=== PATIENT | male | born 1960 | race Caucasian/White ===

== ENCOUNTER 2021-09-05 09:12 | Inpatient (IN) | payer SELFPAY ==
--- OUTSIDE RECORDS SUMMARY | 2021-09-05 09:16 | XMS REPORT | Continuity of Care Document ---
:1960 Author Organization [facility] t Address [address] [place] [address] Care Team Providers Name Role Phone Obey Serrano [facility] Primary Care Physic madeleine Doctor Unassigned, Name Attending Clinician Unavailable Thiago DARBY E Attending Clinician Vivi AVILA Attending Clinician Unavailable Tony Knapp Attending Clinician Unavailable Payers Payer Name Policy Type Policy Number Effective Date Expiration Date S [facility] [place] PENDING 2020 PENDING 00:00:00 Advance Directives Directive Decision Effective Date Termination Date Comments Sour ce Yes N/A [facility] Problems Condition Condition Condition Status Onset Resolution Last Treating Co mments Source Name Details Category Date Date Treatment Clinician Date NSTEMI NSTEMI Disease Active Univers (non-ST (non-ST 5-09 ity of elevated elevated 00:00: [place] myocardial myocardial 00 Me dical infarction infarction Br anch ) ) Obesity Obesity Disease Active Univers (BMI (BMI 5-09 ity of 30-39.9) 30-39.9) 00:00: [place] [address] Medical Branch Encounter Encounter [id number] Active 2019-072020-04-22 for for 0-14 21:38:09 observatio observatio 00:00: n for n for 00 other other suspected suspected diseases diseases and and conditions conditions ruled out ruled out (Z03.89)On set: 0 Allergies, Adverse Reactions, Alerts Allergy Allergy Status Severity Reaction(s) Onset Inactive Treating Comm ents Source Name Type Date Date Clinician CODEINE DRUG Active Rash 2020-0 Univers HCL INGREDI 3-26 ity of 00:00: [place] 00 Medical Branch PENICILL Drug Active Rash 2020-0 Univers INS Class 3-26 ity of 00:00: [place] 00 Medical Branch Codeine Propensi Active Rash 2020-0 Univers Hcl ty to 3-26 ity of adverse 00:00: [place] reaction 00 Medical s Branch Penicill Propensi Active Rash 2020-0 Univer s ins ty to 3- ity of adverse 00:00: [place] reaction 00 Medical s Branch penicill Allergy Active Rash in codeine Allergy Active Rash Social History Social Habit Start Date Stop Date Quantity Comments Source r/o PTSD 2020-04-27 00:00:00 History of tobacco Snuff User Univer sity of use [facility] History SDOH University o f [facility] SDOH University o f Alcohol Std Drinks [facility] History SDOH University o f Alcohol Binge [facility] al Branch Alcohol intake 2020-11-18 2020-11-18 Current drinker Unive rsity of 00:00:00 00:00:00 of alcohol [facility] (finding) Branch Cigarettes smoked 2020-11-15 2020-11-15 Univers ity of current (pack per 00:00:00 00:00:00 [facility] ) - Reported Branch Cigarette 2020-11-15 2020-11-15 University of pack-years 00:00:00 00:00:00 [facility] Tobacco use and 2020-11-15 2020-11-15 Current user Univers ity of exposure 00:00:00 00:00:00 [facility] Tobacco Comment 2020-11-15 2020-11-15 can few months Unive rsity of 00:00:00 00:00:00 [facility] Alcohol Comment 2020-11-15 2020-11-15 beer, 1-2/day Univer sity of 00:00:00 00:00:00 [facility] Sex Ass[birth year] At [birth year] Universit y of 00:00:00 00:00:00 [facility] Smoking Status Start Date Stop Date Source Tobacco smoking consumption [facility] Current every day smoker 2020-11-15 00:00:00 Uni versity of [place] [facility] Medications Ordered Filled Start Stop Current Ordering Indication Dosage Frequency Signature Comments Components Source Medication Medication Date Date Medication? Clinician (SIG) Name Name HYDROXYZINE Yes 50mg Take 50 mg Univers HCL ORAL 5-14 by mouth ity of 03:42: at [place] [address] bedtime. Medical Branch OLANZapine Yes 15mg Take 15 mg U nivers 15 mg 5-14 by mouth ity of tablet 03:42: at [place] [address] bedtime. Medical Branch prazosin 2 Yes 2mg Take 2 mg Un ximena mg capsule 5-14 by mouth ity o f 03:42: at [place] [address] bedtime. Medical Branch metoprolol Yes [id number] 12.5mg Take 0.5 Univers succinate 5-14 tablets by ity of XL 25 mg 24 00:00: mouth [place] hr tablet 00 daily. Medical Branch metoprolol Yes [id number] 12.5mg Take 0.5 Univers succinate 5-14 tablets by ity of XL 25 mg 24 00:00: mouth [place] hr tablet 00 daily. Medical Branch metoprolol Yes [id number] 12.5mg Take 0.5 Univers succinate 5-14 tablets by ity of XL 25 mg 24 00:00: mouth [place] hr tablet 00 daily. Medical Branch prazosin 2 Yes 2mg Take 2 mg Un ximena mg capsule 5-13 by mouth ity o f 22:42: at [place] [address] bedtime. Medical Branch HYDROXYZINE Yes 50mg Take 50 mg Univers HCL ORAL 5-13 by mouth ity of 22:42: at [place] [address] bedtime. Medical Branch OLANZapine Yes 15mg Take 15 mg U nivers 15 mg 5-13 by mouth ity of tablet 22:42: at [place] [address] bedtime. Medical Branch prazosin 2 Yes 2mg Take 2 mg Un ximena mg capsule 5-13 by mouth ity o f 22:42: at [place] [address] bedtime. Medical Branch HYDROXYZINE Yes 50mg Take 50 mg Univers HCL ORAL 5-13 by mouth ity of 22:42: at [place] [address] bedtime. Medical Branch OLANZapine Yes 15mg Take 15 mg U nivers 15 mg 5-13 by mouth ity of tablet 22:42: at [place] [address] bedtime. Medical Branch metoprolol Yes [id number] 12.5mg Take 0.5 Univers succinate 5-13 tablets by ity of XL 25 mg 24 00:00: mouth [place] hr tablet 00 daily. Medical Branch metoprolol Yes [id number] 12.5mg Take 0.5 Univers succinate 5-13 tablets by ity of XL 25 mg 24 00:00: mouth [place] hr tablet 00 daily. Medical Branch metoprolol Yes [id number] 12.5mg Take 0.5 Univers succinate 5-13 tablets by ity of XL 25 mg 24 00:00: mouth [place] hr tablet 00 daily. Medical Branch aspirin 81 Yes [id number] 81mg Take 1 Univers mg chewable 5-11 tablet by ity of tablet 00:00: mouth [place] 00 daily. Medical Branch aspirin 81 Yes [id number] 81mg Take 1 Univers mg chewable 5-11 tablet by ity of tablet 00:00: mouth [place] 00 daily. Medical Branch aspirin 81 Yes [id number] 81mg Take 1 Univers mg chewable 5-11 tablet by ity of tablet 00:00: mouth [place] 00 daily. Medical Branch triamcinolo Yes [id number] Apply to Univers ne 5-10 area(s) 2 ity of acetonide 00:00: (two) [place] 0.1 % cream 00 times Medical daily. Branch amLODIPine Yes [id number] 10mg Take 1 U nivers 10 mg 5-10 tablet by ity of tablet 00:00: mouth [place] 00 daily. Medical Branch FLUoxetine Yes [id number] 60mg Take 3 Univers (PROZAC) 20 5-10 capsules ity of mg capsule 00:00: by mouth [place] as 00 daily. Medical Branch gabapentin Yes [id number] 600mg Take 1 Univers 600 mg 5-10 tablet by ity of tablet 00:00: mouth 3 [place] 00 (three) Medical times Branch daily. losartan 50 Yes [id number] 50mg Take 1 Univers mg tablet 5-10 tablet by ity o f 00:00: mouth [place] 00 daily. Medical Branch atorvastati Yes [id number] 80mg Take 1 Univers n 80 mg 5-10 tablet by ity of tablet 00:00: mouth at [place] 00 bedtime. Medical Branch triamcinolo Yes [id number] Apply to Univers ne 5-10 area(s) 2 ity of acetonide 00:00: (two) [place] 0.1 % cream 00 times Medical daily. Branch amLODIPine Yes [id number] 10mg Take 1 U nivers 10 mg 5-10 tablet by ity of tablet 00:00: mouth [place] 00 daily. Medical Branch FLUoxetine Yes [id number] 60mg Take 3 Univers (PROZAC) 20 5-10 capsules ity of mg capsule 00:00: by mouth [place] 00 daily. Medical Branch gabapentin Yes [id number] 600mg Take 1 Univers 600 mg 5-10 tablet by ity of tablet 00:00: mouth 3 (three) Medical times Branch daily. losartan 50 Yes [id number] 50mg Take 1 Univers mg tablet 5-10 tablet by ity o f 00:00: mouth [place] 00 daily. Medical Branch atorvastati Yes [id number] 80mg Take 1 Univers n 80 mg 5-10 tablet by ity of tablet 00:00: mouth at [place] 00 bedtime. Medical Branch triamcinolo Yes [id number] Apply to Univers ne 5-10 area(s) 2 ity of acetonide 00:00: (two) [place] 0.1 % cream 00 times Medical daily. Branch amLODIPine Yes [id number] 10mg Take 1 U nivers 10 mg 5-10 tablet by ity of tablet 00:00: mouth [place] 00 daily. Medical Branch FLUoxetine Yes [id number] 60mg Take 3 Univers (PROZAC) 20 5-10 capsules ity of mg capsule 00:00: by mouth [place] 00 daily. Medical Branch gabapentin Yes [id number] 600mg Take 1 Univers 600 mg 5-10 tablet by ity of tablet 00:00: mouth 3 00 (three) Medical times Branch daily. losartan 50 Yes [id number] 50mg Take 1 Univers mg tablet 5-10 tablet by ity o f 00:00: mouth [place] 00 daily. Medical Branch atorvastati Yes [id number] 80mg Take 1 Univers n 80 mg 5-10 tablet by ity of tablet 00:00: mouth at [place] 00 bedtime. Medical Branch AmLODIPine* 2020- Yes [id number] 10mg AmLODIPine 0 *; 10 mg 07:59: PO/By 00 mouth for hypertensi on take one tablet in the morningSta rt: 0Ordered: 0Willy Knapp OLANZapine* 2019- Yes [id number] 2.5mg OLANZapine 0 *; 2.5 mg 07:58: PO/By 00 mouth for mood and clear thinking take one tablet at bed timeStart: 0Ordered: 0Willy Knapp Losartan* 2019- Yes [id number] 50mg Losartan*; 0 50 mg 07:58: PO/By 00 mouth for hypertensi on Take one tablet in the morningSta rt: 0Ordered: Willy Yoon OLANZapine* 2019- Yes [id number] 5mg OLANZapine 0 *; 5 mg 07:57: PO/By 00 mouth for mood and clear thinking take one tablet at bed timeStart: 0Ordered: 0Willy Knapp Gabapentin* 2019- Yes [id number] 300mg Gabapentin *; 300 mg 07:56: PO/By 00 mouth for anxiety and pain take one tablet in the morning and one tablet at bed timeStart: 0Ordered: Willy Yoon FLUoxetine* 2019- Yes [id number] 20mg FLUoxetine 0 *; 20 mg 07:56: PO/By 00 mouth for depressed mood Take one tablet in the morningSta rt: 0Ordered: Willy Yoon Albuterol 2019- Yes [id number] Albuterol Inhaler 0- 936320 Inhaler; 21:36: Take 2 00 puffs, NTE 12 puffs in 24 hours q4hr PRN for Asthma/SOB Start: 0Ordered: 0Angelia KristenInt ent Tuberculin 2019-07 Yes [id number] .1ml Tuberculin Unles s Pt P.P.D. 0-14 [id number] P.P.D.; has had a 19:37: 0.1 ml ID positive 00 Daily for test or a TB Testing test in Unless Pt the last has had a 12 positive months. test or a test in the last 12 months. RoutineSta rt: 0Ordered: 0Dinwiddie KristenInt entComment s: Unless Pt has had a positive test or a test in the last 12 months. Ibuprofen 2019-07 Yes [id number] 400mg Ibuprofen; NTE 2 400 0-14 [id number] 400 mg PO mg in 24 19:37: PRN q4hr hours 00 for Pain NTE 2400 mg in 24 hours RoutineSta rt: 0Ordered: 0Angelia KristenInt entComment s: NTE 2400 mg in 24 hours Maalox 2019-07 Yes [id number] 30ml Maalox; 30 NTE 120ml 0-14 [id number] ml PO PRN in 24 19:37: q6hr for hours 00 GI upset NTE 120ml in 24 hours RoutineSta rt: 0Ordered: 0Dinwiddie , KristenInt entComment s: NTE 120ml in 24 hours Milk of 2019-07 Yes [id number] 30ml Milk of NTE 120 Magnesia 0-14 [id number] Magnesia; mL in 24 19:37: 30 ml PO hours 00 PRN q4hr for Constipati on NTE 120 mL in 24 hours RoutineSta rt: 0Ordered: 0Dinwiddie , KristenInt entComment s: NTE 120 mL in 24 hours HydrOXYzine 2019-07 Yes [id number] 25mg HydrOXYzin NTE 100mg 0-14 [id number] e; 25 mg in 24 19:37: PO PRN hours 00 q6hr for Anxiety NTE 100mg in 24 hours RoutineSta rt: 0Ordered: 0Aaliyahe KristenInt entComment s: NTE 100mg in 24 hours OLANZapine 2019-07 Yes [id number] 2.5mg OLANZapine NTE 10 mg 0-14 [id number] ; 2.5 mg PRN 19:37: PO PRN Olanzapin 00 q6hr for e in 24 moderate hr period agitation NTE 10 mg PRN Olanzapine in 24 hr period RoutineSta rt: 0Ordered: 0Holliswiddie KitistenInt entComment s: NTE 10 mg PRN Olanzapine in 24 hr period OLANZapine 2019-07 Yes [id number] 5mg OLANZapine NTE 1 0 mg 0- 831936 ; 5 mg PO PRN 19:37: PRN q12hr Olanzapin 00 for severe e in 24 agitation hr period NTE 10 mg PRN Olanzapine in 24 hr period RoutineSta rt: 0Ordered: 0Aaliyahe JaronenInt entComment s: NTE 10 mg PRN Olanzapine in 24 hr period losartan 50 2019-07 No [id number] 1{tab(s losartan mg oral 0 755471 )} 50 mg oral tablet 16:04: tablet; 1 47 tab(s) orally once a dayQuantit y: 0 Refills: 0Ordered: Uzma GonsalezGeneric Substituti on Allowed amLODIPine 2019-07 No [id number] 1{tab(s amLODIPine 10 mg oral 0 808773 )} 10 mg oral tablet 16:04: tablet; 1 30 tab(s) orally once a dayQuantit y: 0 Refills: 0Ordered: Uzma GonsalezGeneric Substituti on Allowed Procedures Procedure Date / Time Performing Clinician Source Performed AUTHORIZATION FOR 2021-03-12 05:01:00 [facility] Name Medical Branch AUTHORIZATION FOR 2021-01-12 05:01:00 [facility] Name Medical Branch Plan of Care Planned Activity Planned Date Details Comments Source Diagnostic Test Pending 2020-04-28 10:50:00 Discharge Patient [code = DischargePatient] Diagnostic Test Pending 2020-04-27 15:18:00 Vital Signs - Routine [code = VitalSigns-Routine] Diagnostic Test Pending 2020-04-24 17:40:00 Management of Emotions [code = ManagementofEmotions] Diagnostic Test Pending 2020-04-24 17:40:00 Mgmt of Mental Illness (On Unit) [code = MgmtofMentalIllness(OnUni t)] Diagnostic Test Pending 2020-04-24 17:40:00 Spirituality [code = Spirituality] Diagnostic Test Pending 2020-04-24 17:40:00 Therapeutic Recreation [code = TherapeuticRecreation] Diagnostic Test Pending 2020-04-22 21:52:00 Other-Nursing [code = Other-Nursing] Diagnostic Test Pending 2020-04-22 19:37:00 Cardiac Diet/AHA (low fat/2g Na) [code = CardiacDiet/AHA(lowfat/2g Na)] Diagnostic Test Pending 2020-04-22 19:37:00 Assess and involve in group therapy [code = Assessandinvolveingroupth erapy] Encounters Start End Encounter Admission Attending Care Care Encounter Source Date/Time Date/Time Type Type Clinicians Facility Department ID 2021-03-12 2021-03-12 Orders Doctor BAKARI [id number] Univers 00:00:00 00:00:00 Only Unassigned, JONATHAN [id number] ity of [place] [facility] [id number] Jason as [id number] [facility] 009 Branch 2021-03-11 2021-03-11 Patient Gisselle Das [id number] Univers 00:00:00 00:00:00 Outreach E [place] [id number] i [id number] [id number] [facility] 403 Branch 2021-01-12 2021-01-12 Orders Doctor BAKARI [id number] Univers 00:00:00 00:00:00 Only Unassigned, JONATHAN [id number] ity of [place] [facility] [id number] Jason as [id number] [facility] 009 Branch 2020-11-18 2020-11-18 Emergency X [facility] ERT [id number] Univers 14:56:00 [facility]56[facility]14 2020-11-14 Emergency X [facility] ERT [id number] Univers 19:28:00 19:28:00 [facility] 2020-10-02 2020-10-02 Emergency X JAYDE AVILA [facility] ERT [id number] Univers 15:36:00 15:36:00 [facility] 2020-04-22 2020-04-28 Inpatient Aria, Marjorie [facility]-2E-73- [id number] [place] 18:45:00 12:07:00 [facility] Results Test Description Test Time Test Comments Results Result Comments Source Urine Drug Screen 7 2020-04-24 18:04:00 Test Item Value Reference Range Interpretation Comme nts Amphetamine Methamphetmine 510958 Negative Amphetamine test (test code = includes Amphet amine GswnrqdkysgMnzqwtobgdxwjp142010) and Methamphetamine. Barbiturate (896572) (test code = Negative Barbiturate(093349)) Benzodiazepines (297740) (test code = Negative Benzodiazepines(266510)) Cocaine Metabolite (749286) (test code Negative = CocaineMetabolite(000479)) Phencyclidine (541599) (test code = Negative Phencyclidine(505638)) Drug Screen Comment (test code = NOTE : .This analysis DrugScreenComment) is performed by immunoassay. Positivefindings are unconfirmed analytical test results; ifresults do not support expected clinical finding,confirmation by an alternate methodology is recommended.Patient metabolic variables, specific drug chemistry, andspecimen characteristics can affect test outcome.Technical consultation is available [email or web address], or call toll free [phone]. Opiates (012033) (test code = Negative Opiate test includes Opiates(532403)) Codeine and Morphine only. Cannabinoid (454221) (test code = Positive Cannabinoid(920938)) Comprehensive Metabolic [id number] 14:28:00 Test Item Value Reference Range Interpretation Comments Glucose,Serum (test code = 87 mg/dL Glucose,Serum) BUN (test code = BUN) 15 mg/dL Creatinine,Serum (test code = 0.97 mg/dL Creatinine,Serum) eGFR If NonAfrican Am (491462) 84 mL/min/1.73 (test code = eGFRIfNonAfricanAm(088687)) eGFR If Am (823755) 98 mL/min/1.73 (test code = eGFRIfAfricanAm(452506)) BUN/Creat Ratio (test code = 15 BUN/CreatRatio) Sodium (test code = Sodium) 139 mmol/L Potassium (test code = 4.6 mmol/L Potassium) Chloride (test code = 103 mmol/L Chloride) zzzCO2 (test code = zzzCO2) 26 mmol/L Calcium (test code = Calcium) 9.6 mg/dL Protein, Total (test code = 7.4 g/dL Protein,Total) Albumin (test code = Albumin) 4.6 g/dL Globulin, Total (test code = 2.8 g/dL Globulin,Total) A/G Ratio (test code = 1.6 A/GRatio) Bilirubin, Total (test code = 0.3 mg/dL Bilirubin,Total) Alkaline Phosphatase (test 103 {IU/L} code = AlkalinePhosphatase) AST (test code = AST) 18 {IU/L} ALT (test code = ALT) 15 {IU/L} [id number] 14:28:00 Test Item Value Reference Range Interpretation Comments TSH (399462) (test code = 1.950 {uIU/mL} TSH(738537)) Lipid Panel with LDL/HDL [id number] 14:28:00 Test Item Value Reference Range Interpretation Comments zzzCholesterol, Total 171 mg/dL (test code = zzzCholesterol,Total) Triglycerides (test code 186 mg/dL = Triglycerides) zzzHDL Cholesterol (test 33 mg/dL code = zzzHDLCholesterol) VLDL Cholesterol 33 mg/dL Calculated (test code = VLDLCholesterolCalculate d) LDL Cholesterol MARLA 105 mg/dL (NIH) (test code = LDLCholesterolCAL([facility])) LDL/HDL Ratio (408466) 3.2 {ratio} . (test code = LDL/HDLRatio(124939)) LDL/HDL Ratio Men Women 1/ 2 Avg.Risk 1.0 1.5 Avg.Risk 3.6 3.2 2X Avg.Risk 6.2 5.0 3X Avg.Risk 8.0 6.1 CBC w/ Diff w/ [id number] 11:45:00 Test Item Value Reference Range Interpretation Comments WBC Count (test code = 9.4 {x10E3/uL} WBCCount) zzzRBC Count (test code = 4.77 {x10E6/uL} zzzRBCCount) Hemoglobin (test code = 15.4 g/dL Hemoglobin) zzzHematocrit (test code = 44.0 % zzzHematocrit) MCV (test code = MCV) 92 fL MCH (test code = MCH) 32.3 pg MCHC (test code = MCHC) 35.0 g/dL RDW (test code = RDW) 12.1 % Platelets (test code = 367 {x10E3/uL} Platelets) Neutrophils (test code = 60 % Neutrophils) Lymphs (test code = Lymphs) 27 % Monocytes (test code = 8 % Monocytes) Eosinophils (test code = 4 % Eosinophils) Basophils (test code = 1 % Basophils) Neutrophils (Absolute) (test 5.6 {x10E3/uL} code = Neutrophils(Absolute)) Lymphs(Absolute) (test code = 2.5 {x10E3/uL} Lymphs(Absolute)) Monocytes(Absolute) (test 0.8 {x10E3/uL} code = Monocytes(Absolute)) Eosinophils(Absolute) (test 0.3 {x10E3/uL} code = Eosinophils(Absolute)) Basophils(Absolute) (test 0.1 {x10E3/uL} code = Basophils(Absolute)) Immature Granulocytes (test 0 % code = ImmatureGranulocytes) Immature Grans (Abs) (test 0.0 {x10E3/uL} code = ImmatureGrans(Abs))
[2021-09-05] MEDS ORDERED: MORPHINE 4 MG/ML SYR ONE ×2 (09:40→11:10)
[2021-09-05] MEDS ORDERED: ONDANSETRON 4 MG/2 ML VIAL ONE (09:40)
[2021-09-05] MEDS ORDERED: CEFEPIME 1 GM/VIAL ONE (09:41)
[2021-09-05] MEDS ORDERED: NA CHLORIDE 0.9% 100 ML IV ONE (09:41)
[2021-09-05] MEDS ORDERED: NA CHLORIDE 0.9% 250 ML ONE (09:45)
[2021-09-05] MEDS ORDERED: VANCOMYCIN 1 GM/VIAL ONE (09:45)
[2021-09-05 09:48] LABS: Absolute Lymphocytes (CBC) 1.6 K/uL (0.7-4.9); Hematocrit 41.2 % (39.6-49.0); Lymphocytes % 16.2 % (15.3-44.8); MPV 8.1 fL (7.6-11.3); RBC Red Blood Cell Count 4.61 M/uL (4.33-5.43)
[2021-09-05 09:50] LABS: Protime INR 1.08
[2021-09-05 10:07] LABS: Albumin 3.9 g/dL (3.4-5.0); Bilirubin Direct 0.1 mg/dL (0-0.2); Bilirubin Total 0.4 mg/dL (0.2-1.0); Magnesium 2.2 mg/dL (1.8-2.4); Potassium 4.1 mmol/L (3.5-5.1); Protein, Total 8.8 g/dL (6.4-8.2); Troponin High Sensitivity 7.7 pg/mL (<58.9)
--- NOTE | 2021-09-05 10:42 | RAD REPORT ---
EXAM DESCRIPTION: RAD - Chest Single View - 09/05/2021 10:05 am CLINICAL HISTORY: preop COMPARISON: No comparisons FINDINGS: Lines: None. Lungs: No evidence of edema or pneumonia. Pleural: No significant pleural effusions or pneumothorax. Cardiac: The heart size is within normal limits. Bones: No acute fractures. Other: Suspect ectasia of the thoracic aorta. IMPRESSION: No acute cardiopulmonary disease.
--- NOTE | 2021-09-05 12:04 | P.HP ---
Certification for Inpatient Patient admitted to: Inpatient Practitioner: I am a practitioner with admitting privileges, knowledge of patient current condition, hospital course, and medical plan of care. Services: Services provided to patient in accordance with Admission requirements found in Title 42 Section 412.3 of the Code of Federal Regulations Patient History Date of Service: 09/05/21 Reason for admission: Swollen painful left hand History of Present Illness: 61-year-old gentleman with a history of hypertension, coronary artery disease presented to the emergency department with a complaint of pain and swelling of the left hand of 2 days duration. Patient reported he started with a painful swelling in the left fifth finger which quickly spread to involve the whole hand, saw a streak of redness on the radial side of the distal one third of the forearm. Patient therefore presented to the ED for evaluation. He stated he does not recall any insect bite, does not own any pets so no animal bite. 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 He also had a saw cut on the left second digit about 1 week ago and the wound is healing. He has no leukocytosis or fever. Dr. Kaminski-hand surgeon was contacted recommended admission to hospitalist service for him to consult. Patient admitted for further management. Allergies Penicillins Allergy (Unverified 09/05/21 12:23) Rash - Past Medical/Surgical History -: Hypertension -: Coronary to disease -: Bowel resection -: Colostomy with reversal - Family History Father -: Heart disease Mother -: Heart disease - Social History Smoking Status: Never smoker Alcohol use: Yes Place of Residence: Home Review of Systems Other: Except as documented, all other systems reviewed and negative. Physical Examination - Physical Exam General: Alert, In no apparent distress, Oriented x3 HEENT: Normocephalic, Mucous membr. moist/pink, EOMI, Sclerae nonicteric Neck: Supple, JVD not distended Respiratory: Clear to auscultation bilaterally, Normal air movement Cardiovascular: No edema, Regular rate/rhythm, Normal S1 S2 Gastrointestinal: Normal bowel sounds, Soft and benign, Non-distended, No tenderness Musculoskeletal: Swelling (Left hand), Tenderness (Left hand) Integumentary: Erythema (Dorsum of left hand) Neurological: Normal speech, Normal strength at 5/5 x4 extr, Cranial nerves 3-12 intact Lymphatics: No axilla or inguinal lymphadenopathy - Studies Laboratory Data (last 24 hrs) 09/05/21 09:29: PT 12.4, INR 1.08 09/05/21 09:29: WBC 10.10, Hgb 14.0, Hct 41.2, Plt Count 384 09/05/21 09:29: Sodium 132 L, Potassium 4.1, BUN 16, Creatinine 1.37 H, Glucose 96, Magnesium 2.2, Total Bilirubin 0.4, AST 18, ALT 24, Alkaline Phosphatase 127 H Assessment and Plan - Problems (Diagnosis) (1) Cellulitis of hand Current Visit: Yes Status: Acute (2) Tenosynovitis of left hand Current Visit: Yes Status: Acute (3) Hypertension Current Visit: Yes Status: Acute (4) Coronary artery disease Current Visit: Yes Status: Acute - Plan Admit patient to the medical floor. Start IV Levaquin and vancomycin. Pain management with IV morphine and IV Toradol. Consult treatment surgery-Dr. Onofre. No aspirin. No anticoagulation in anticipation for surgery. Hydrate with IV normal saline. Follow blood cultures. - Advance Directives Does patient have a Living Will: No Does patient have a Durable POA for Healthcare: No
[2021-09-05] MEDS ORDERED: FENTANYL CITR 100 MCG/2 ML ONE ×2 (12:38→13:40)
[2021-09-05] MEDS ORDERED: KETOROLAC 30 MG/ML INJ IV PRN (13:07)
[2021-09-05] MEDS ORDERED: ACETAMINOPHEN 500 MG TAB PO PRN (13:07)
[2021-09-05] MEDS ORDERED: MORPHINE 4 MG/ML SYR IV PRN (13:07)
[2021-09-05] MEDS ORDERED: ONDANSETRON 4 MG/2 ML VIAL IV PRN (13:07)
--- NOTE | 2021-09-05 13:12 | ER ---
Nurse's Notes [facility] Name: Miguelangel Reaves Jr Age: 61 yrs Sex: Male : 1960 Arrival Date: 09/05/2021 Time: 09:15 Bed 7 Private MD: Diagnosis: Left flexor tenosynovitis Presentation: 09/05 09:22 Chief complaint: Patient states: L hand 5th digit started swelling on Monday. Has ll1 progressed up L hand and arm since. No known fever. Coronavirus screen: Vaccine status: Patient reports receiving the 2nd dose of the covid vaccine. Client denies travel out of the [place] in the last 14 days. At this time, the client does not indicate any symptoms associated with coronavirus-19. Ebola Screen: Patient denies travel to an Ebola-affected area in the 21 days before illness onset. Initial Sepsis Screen: Does the patient meet any 2 criteria? No. Patient's initial sepsis screen is negative. Does the patient have a suspected source of infection? Yes: Skin breakdown/wound. Risk Assessment: Do you want to hurt yourself or someone else? Patient reports no desire to harm self or others. Onset of symptoms was September 03, 2021. 09:22 Method Of Arrival: Ambulatory ll1 09:22 Acuity: NETTA 3 ll1 Triage Assessment: 09:24 General: Appears in no apparent distress. Behavior is calm, cooperative, appropriate ph for age, Denies fever. Pain: Complains of pain in left hand Pain radiates to left wrist and palmar aspect of left forearm. Neuro: Level of Consciousness is awake, alert, obeys commands, Oriented to person, place, time, situation. Cardiovascular: No deficits noted. Respiratory: Airway is patent Respiratory effort is even, unlabored, Respiratory pattern is regular, symmetrical. GI: No signs and/or symptoms were reported involving the gastrointestinal system. Derm: Skin is healthy with good turgor, Skin is pink, warm \\T\\ dry. Musculoskeletal: Swelling present in left hand. 09:24 General: Appears uncomfortable, Behavior is calm, cooperative, appropriate for age. ll1 Pain: Complains of pain in L hand Quality of pain is described as aching, Aggravated by increased activity. Derm: L hand pain, redness, and swelling. Reports pain. Historical: - Allergies: 09:21 PENICILLINS; ll1 - PMHx: 09:21 Hypertensive disorder; Myocardial infarction; Asthma; ll1 - PSHx: 09:21 heart cath; ll1 - Immunization history:: Client reports receiving the 2nd dose of the Covid vaccine. - Social history:: Smoking status: Patient reports the use of cigarette tobacco products, smokes one-half pack cigarettes per day, Reported history of juuling and/or vaping. Screenin:17 Abuse screen: Denies threats or abuse. Denies injuries from another. Nutritional ph screening: No deficits noted. Tuberculosis screening: No symptoms or risk factors identified. Fall Risk None identified. Assessment: 09:44 General: Appears uncomfortable, Behavior is cooperative, appropriate for age. Pain: ww Complains of pain in left hand. Neuro: Level of Consciousness is awake, alert, obeys commands, Oriented to person, place, time, situation, Moves all extremities. left hand painful to touch and move. Gait is steady. Cardiovascular: Capillary refill < 3 seconds Patient's skin is warm and dry. Rhythm is regular Chest pain is denied. Respiratory: Airway is patent Respiratory effort is even, unlabored, Respiratory pattern is regular, symmetrical. GI: Abdomen is non-distended, Abd is soft and non tender. EENT: No signs and/or symptoms were reported regarding the EENT system. Derm: Skin is intact, Skin is normal, skin abrasion to nasal bridge, patient states he has been picking at his nose for awhile. 09:47 Reassessment: Patient appears in no apparent distress at this time. Patient and/or ph family updated on plan of care and expected duration. Pain level reassessed. Patient is alert, oriented x 3, equal unlabored respirations, skin warm/dry/pink. Verbal order received from TESFAYE Reynoso for IV morphine 4 mg and IV zofran 4 mg, see MAR. 11:12 Reassessment: Patient appears in no apparent distress at this time. Patient and/or ph family updated on plan of care and expected duration. Pain level reassessed. Patient is alert, oriented x 3, equal unlabored respirations, skin warm/dry/pink. Pt reports that pain has increased, states, " The morphine helped it just wore off too quick." ERP notified and verbal order received for repeat dose of morphine, see MAR. 12:48 Reassessment: Patient appears in no apparent distress at this time. Patient and/or ph family updated on plan of care and expected duration. Pain level reassessed. Patient is alert, oriented x 3, equal unlabored respirations, skin warm/dry/pink. OR nurse at bedside, report given to WILNER Anderson, pt taken to OR for possible surgery. Vital Signs: 09:22 BP 153 / 107; Pulse 80; Resp 18; Temp 98.0(TE); Pulse Ox 100% on R/A; ph 09:22 Temp 98.1(TE); Weight 99.79 kg; Height 5 ft. 10 in. (177.80 cm); Pain 8/10; ll1 09:55 BP 132 / 102; Pulse 76; Resp 16; Pulse Ox 98% on R/A; ph 11:11 BP 137 / 100; Pulse 75; Resp 18; Pulse Ox 99% on R/A; ph 12:30 BP 145 / 102; Pulse 67; Resp 20; Pulse Ox 98% on R/A; ss7 09:22 Body Mass Index 31.57 (99.79 kg, 177.80 cm) ll1 ED Course: 09:15 Patient arrived in ED. mr 09:16 Edgardo Youngblood PA is PHCP. jmm 09:16 Stuart Villegas MD is Attending Physician. jmm 09:17 Sindhu Denton, WILNER is Primary Nurse. ph 09:18 Patient has correct armband on for positive identification. Bed in low position. Call ph light in reach. Side rails up X 1. Pulse ox on. NIBP on. 09:24 Triage completed. ll1 09:25 Arm band placed on Patient placed in an exam room, on a stretcher. ph 09:25 Initial lab(s) drawn, EKG done. Inserted saline lock: 20 gauge in right antecubital ww area, using aseptic technique. Blood collected. 09:37 Basic Metabolic Panel Sent. ww 09:37 CBC with Diff Sent. ww 09:43 Marcel Woo is Hospitalizing Provider. jmm 10:05 XRAY Chest (1 view) In Process Unspecified. EDMS 13:00 No provider procedures requiring assistance completed. Patient admitted, IV remains in ph place. Administered Medications: 09:44 Drug: Zofran (Ondansetron) 4 mg Route: IVP; Site: right forearm; ph 09:55 Follow up: Response: No adverse reaction ph 09:47 Drug: morphine 4 mg Route: IVP; Site: right antecubital; ph 09:55 Follow up: Response: No adverse reaction; Pain is decreased; RASS: Alert and Calm (0) ph 09:55 Drug: Cefepime 1 grams Route: IVPB; Rate: 200 ml/hr; Infused Over: 30 mins; Site: right ph antecubital; 10:30 Follow up: Response: No adverse reaction; IV Status: Completed infusion; IV Intake: ph 100ml 10:45 Drug: vancoMYCIN 1 grams Route: IVPB; Infused Over: 2 hrs; Site: right antecubital; ph 12:50 Follow up: Response: No adverse reaction; IV Status: Completed infusion; IV Intake: ph 250ml 11:11 Drug: morphine 4 mg Route: IVP; Site: right antecubital; ph 11:48 Follow up: Response: No adverse reaction; Pain is decreased; RASS: Alert and Calm (0) ph 12:40 Drug: fentaNYL (PF) 50 mcg Route: IVP; Site: right antecubital; ss7 13:00 Follow up: Response: No adverse reaction; Pain is decreased; RASS: Alert and Calm (0) ph Intake: 10:30 IV: 100ml; Total: 100ml. ph 12:50 IV: 250ml; Total: 350ml. ph Outcome: 09:43 Decision to Hospitalize by Provider. [facility] 13:00 Admitted to OR accompanied by nurse, via stretcher. ph 13:00 Condition: good 13:00 Instructed on the need for admit. 13:12 Patient left the ED. eb Signatures: Dispatcher [employer] EDMS Edgardo Youngblood PA PA zaria Gisselle BeahcSindhu RN Sarah Jimenez ph, Lynsay, RN RN ll1 More Uribe RN Thi Gomez RN RN ss7
--- NOTE | 2021-09-05 13:12 | EDPHYS ---
Physician Documentation [facility] Name: Miguelangel Reaves Jr Age: 61 yrs Sex: Male : 1960 Arrival Date: 09/05/2021 Time: 09:15 Bed 7 Private MD: YENNI Physician Stuart Villegas HPI: 09/05 09:39 This 61 yrs old Male presents to ER via Ambulatory with complaints of Hand Swelling. jmm 09:39 The patient or guardian reports pain, swelling. The complaints affect the left hand jmm diffusely. Onset: The symptoms/episode began/occurred gradually, 2 day(s) ago. Modifying factors: The symptoms are alleviated by nothing, the symptoms are aggravated by movement. This is a 61-year-old male with history of hypertension, coronary artery disease, asthma the presents emerged part with complaints of left hand swelling beginning this past Monday. Patient is unsure of an actual injury or envenomation. Symptoms worsened this morning to the point that he cannot move his left hand without large amount of pain. Denies fever or chills. Does state he injured his left index finger a few weeks back. Denies fever or chills.. Historical: - Allergies: 09:21 PENICILLINS; ll1 - PMHx: 09:21 Hypertensive disorder; Myocardial infarction; Asthma; ll1 - PSHx: 09:21 heart cath; ll1 - Immunization history:: Client reports receiving the 2nd dose of the Covid vaccine. - Social history:: Smoking status: Patient reports the use of cigarette tobacco products, smokes one-half pack cigarettes per day, Reported history of juuling and/or vaping. ROS: 09:39 Constitutional: Negative for fever, chills, and weight loss, Cardiovascular: Negative jmm for chest pain, palpitations, and edema, Respiratory: Negative for shortness of breath, cough, wheezing, and pleuritic chest pain, Abdomen/GI: Negative for abdominal pain, nausea, vomiting, diarrhea, and constipation. 09:39 MS/extremity: Positive for pain. 09:39 All other systems are negative. Exam: 09:39 Constitutional: This is a well developed, well nourished patient who is awake, alert, jmm and in no acute distress. Head/Face: atraumatic. Eyes: EOMI, no conjunctival erythema appreciated ENT: Moist Mucus Membranes Neck: Trachea midline, Supple Chest/axilla: Normal chest wall appearance and motion. Cardiovascular: Regular rate and rhythm. No edema appreciated Respiratory: Normal respirations, no respiratory distress appreciated Abdomen/GI: Non distended, soft Back: Normal ROM Skin: General appearance color normal 09:39 Musculoskeletal/extremity: Edema noted to the left hand diffusely, pain is exquisite on passive extension of all fingers, pain radiates into the volar surface of the wrist. Full radial pulse, less than 2-second distal cap refill, compartments are soft, neurovascular intact. 09:39 Skin: Appearance: Color: Erythema noted to the nose, left index finger. 09:39 Neuro: Orientation: is normal, Mentation: is normal, Memory: is normal. 09:39 Psych: Behavior/mood is pleasant, cooperative. Vital Signs: 09:22 BP 153 / 107; Pulse 80; Resp 18; Temp 98.0(TE); Pulse Ox 100% on R/A; ph 09:22 Temp 98.1(TE); Weight 99.79 kg; Height 5 ft. 10 in. (177.80 cm); Pain 8/10; ll1 09:55 BP 132 / 102; Pulse 76; Resp 16; Pulse Ox 98% on R/A; ph 11:11 BP 137 / 100; Pulse 75; Resp 18; Pulse Ox 99% on R/A; ph 12:30 BP 145 / 102; Pulse 67; Resp 20; Pulse Ox 98% on R/A; ss7 09:22 Body Mass Index 31.57 (99.79 kg, 177.80 cm) ll1 MDM: 09:21 [facility] 09:42 Data reviewed: vital signs, nurses notes. Counseling: I had a detailed discussion with [facility] the patient and/or guardian regarding: the historical points, exam findings, and any diagnostic results supporting the discharge/admit diagnosis, the need for further work-up and treatment in the hospital. ED course: I discussed the patient with Dr. Onofre whom recommended surgery. I discussed the patient with Dr. Salma goncalves whom accepted the patient for admission. 09/05 09:33 Order name: Basic Metabolic Panel [facility] 09/05 09:33 Order name: CBC with Diff [facility] 09/05 09:33 Order name: LFT's; Complete Time: 10:13 [facility] 09/05 09:33 Order name: Magnesium; Complete Time: 10:13 [facility] 09/05 09:33 Order name: NT PRO-BNP; Complete Time: 10:13 [facility] 09/05 09:33 Order name: PT-INR; Complete Time: 09:55 [facility] 09/05 09:33 Order name: Troponin HS; Complete Time: 10:13 [facility] 09/05 09:33 Order name: XRAY Chest (1 view); Complete Time: 10:58 [facility] 09/05 09:33 Order name: Basic Metabolic Panel; Complete Time: 10:13 [facility] 09/05 09:33 Order name: CBC with Automated Diff; Complete Time: 09:55 [facility] 09/05 09:37 Order name: Blood Culture Adult (2) ww 09/05 09:44 Order name: SARS-COV-2 RT PCR (Document "Date of Onset" if Symptomatic); Complete Time: [facility] 11:59 09/05 09:32 Order name: Saline Lock; Complete Time: 09:33 [facility] 09/05 09:33 Order name: EKG; Complete Time: 09:33 [facility] 09/05 09:33 Order name: Cardiac monitoring; Complete Time: 09:33 [facility] 09/05 09:33 Order name: EKG - Nurse/Tech; Complete Time: 09:40 [facility] 09/05 09:33 Order name: IV Saline Lock; Complete Time: 09:33 [facility] 09/05 09:33 Order name: Labs collected and sent; Complete Time: 09:33 [facility] 09/05 09:33 Order name: O2 Per Protocol; Complete Time: 09:34 [facility] 09/05 09:33 Order name: O2 Sat Monitoring; Complete Time: 09:34 [facility] Administered Medications: 09:44 Drug: Zofran (Ondansetron) 4 mg Route: IVP; Site: right forearm; ph 09:55 Follow up: Response: No adverse reaction ph 09:47 Drug: morphine 4 mg Route: IVP; Site: right antecubital; ph 09:55 Follow up: Response: No adverse reaction; Pain is decreased; RASS: Alert and Calm (0) ph 09:55 Drug: Cefepime 1 grams Route: IVPB; Rate: 200 ml/hr; Infused Over: 30 mins; Site: right ph antecubital; 10:30 Follow up: Response: No adverse reaction; IV Status: Completed infusion; IV Intake: ph 100ml 10:45 Drug: vancoMYCIN 1 grams Route: IVPB; Infused Over: 2 hrs; Site: right antecubital; ph 12:50 Follow up: Response: No adverse reaction; IV Status: Completed infusion; IV Intake: ph 250ml 11:11 Drug: morphine 4 mg Route: IVP; Site: right antecubital; ph 11:48 Follow up: Response: No adverse reaction; Pain is decreased; RASS: Alert and Calm (0) ph 12:40 Drug: fentaNYL (PF) 50 mcg Route: IVP; Site: right antecubital; ss7 13:00 Follow up: Response: No adverse reaction; Pain is decreased; RASS: Alert and Calm (0) ph Disposition: 09/06 09:08 Co-signature as Attending Physician, Stuart Villegas MD I agree with the assessment and jr11 plan of care. Disposition Summary: 09/05/21 09:43 Hospitalization Ordered Hospitalization Status: Observation [facility] Provider: Marcel Woo Location: Telemetry/[facility] (observation) [facility] Condition: Stable jmm Problem: new jmm Symptoms: are unchanged [facility] Bed/Room Type: Standard [facility] Room Assignment: [facility] Diagnosis - Left flexor tenosynovitis [facility] Forms: - Medication Reconciliation Form [facility] - SBAR form [facility] Signatures: Dispatcher [employer] EDEdgardo Chris PA PA m Sindhu Denton RN RN Abdoul Loja RN RN ll1 Stuart Villegas MD MD [id number] Thi Aguilar RN RN ss7
[2021-09-05] MEDS ORDERED: Ringers Lactate 1,000 ML IV ONE (13:18)
[2021-09-05] MEDS: Levofloxacin 750mg IV 750 MG/150 ML BAG IV SCH (13:26)
[2021-09-05] MEDS ORDERED: SUCCINYLCHOLINE 20 MG/ML (10 ML) IV ONE (13:39)
[2021-09-05] MEDS ORDERED: propofoL 200 MG/20 ML VIAL IV ONE (13:40)
[2021-09-05] MEDS ORDERED: MIDAZOLAM HCL 2 MG/2 ML INJ ONE (13:40)
[2021-09-05] MEDS ORDERED: VANCOMYCIN 1.5 GM in NA CHLORIDE 0.9% 500 ML IVPB ONE (14:00)
[2021-09-05] MEDS ORDERED: MEPERIDINE HCL 50 MG/ML IV PRN (15:01)
[2021-09-05] MEDS: HYDROMORPHONE HCL 1 MG/ML INJ ONE ×2 (15:02→15:07)
[2021-09-05] MEDS ORDERED: KETOROLAC 30 MG/ML INJ ONE (15:05)
[2021-09-05] MEDS: FENTANYL CITR 100 MCG/2 ML ONE ×2 (15:09→15:21)
[2021-09-05] MEDS ORDERED: ALBUTEROL 2.5 MG/3 ML NEB SOL NEB ONE ×2 (15:30)
[2021-09-05] MEDS: NA CHLORIDE 0.9% 1,000 ML IV SCH (16:17)
[2021-09-05 20:13] LABS: Urine Appearance CLEAR (Clear); Urine Bilirubin NEGATIVE (Negative); Urine Blood NEGATIVE (Negative); Urine Color YELLOW (Yellow); Urine Glucose TRACE (Negative); Urine Microscopic Reflex ORDER UMIC; Urine Protein TRACE (Negative); Urine Specific Gravity 1.025 (1.005-1.030); Urine Urobilinogen 0.2 mg/dL (0.2-1.0)
[2021-09-05 20:28] LABS: Urine Bacteria <20 /HPF (NONE SEEN); Urine Mucus 2+ /HPF (NONE SEEN); Urine RBC NONE SEEN /HPF (NONE SEEN); Urine Urothelial Cells <5 /HPF (NONE SEEN)
[2021-09-05 20:41] VITALS: BMI 32.3
[2021-09-05] MEDS: MEPERIDINE HCL 50 MG/ML IM PRN (20:54)
[2021-09-06] MEDS: CODEINE 30MG/APAP 300MG TAB PO PRN (00:53)
--- NOTE | 2021-09-06 00:58 | OP ---
Surgeon: Jose Maria Onofre MD Preoperative Diagnosis: Tenosynovitis of the left hand. Postoperative Diagnosis: Tenosynovitis of the left hand. Procedure Performed: Carpal release, antebrachial fascia release, A1 bayron release of the ring finger, and synovial biopsy. Anesthesia: General. Description Of Procedure: After satisfactory induction of general anesthesia, left arm was prepped with Betadine scrub and Betadine paint. Dry sterile drapes were applied in the usual manner. The arm was elevated. Tourniquet was inflated to 250 mmHg. Hand was placed on a roll lock table. A carpal tunnel- like incision was made in the palm. Dissection down through the transcarpal ligament revealed thick cloudy fluid appears to be some bubbling of air. Cultures were taken. Proximal extension was made with antebrachial fascia and the muscle bulging. There was thickened synovium in the forearm as well as the hand. It was then dissected distally and the incision was extended distally into the little finger metacarpal head with a zigzag Jie incision. At that time, the A1 bayron was released. There was no cloudy fluid at this point with some mild tenosynovitis. The superficial arch has maintained continuity as well as nerve branches and lateral branches. The wound was then jet lavage irrigated with 3 L of dilute Betadine solution. Tourniquet was released. Electrocautery was used for hemostasis. Wound was packed loosely with half-inch Nu Gauze soaked in Betadine, followed by 3 Kerlix. The patient tolerated the procedure well and returned to Recovery. ROSA/HARRY Voice ID: [id number] Report ID: [id number] MONIQUE
--- NOTE | 2021-09-06 01:29 | HP ---
Date of Admission: 09/05/2021 History Of Present Illness: A 61-year-old white male right-hand dominant, who on Monday 2 days ago n oticed pain and swelling of his left little finger, presented to the emergency room with swelling of his left little finger, hand, and forearm, getting progressively worse. In the ER, he has pain with passive extension, that is why he is referred. Past Medical History: High blood pressure and previously infected ankle and spinal fusion and colono scopy. Social History: Smokes half-a-pack a day. Does not drink. Allergies: PENICILLIN. Medications: Gabapentin. See the list. Review of Systems: Review of systems is otherwise unremarkable. Physical Examination: The only finding is the left hand is warm. This is swollen compared to the opposite side. There is pain with compression of the forearm volarly. Pain with extension of the little more than the ring, more than the middle finger. Assessment: Skin cellulitis. Plan: Debridement. ROSA/HARRY Voice ID: [id number]
[2021-09-06 04:28] LABS: Absolute Lymphocytes (CBC) 2.2 K/uL (0.7-4.9); Hematocrit 36.2 % (39.6-49.0); Lymphocytes % 27.8 % (15.3-44.8); MPV 7.9 fL (7.6-11.3); RBC Red Blood Cell Count 4.02 M/uL (4.33-5.43)
[2021-09-06 04:51] LABS: Phosphorus 3.2 mg/dL (2.5-4.9); Potassium 3.8 mmol/L (3.5-5.1)
[2021-09-06] MEDS: MEPERIDINE HCL 50 MG/ML IM PRN ×4 (08:31→22:22)
--- NOTE | 2021-09-06 08:50 | EKG ---
Test Date: 2021-09-05 Test Time: 09:38:51 Fluid Jet Cutter Operator: KV MEASUREMENT RESULTS: Intervals: Rate: 79 NE: 154 QRSD: 78 QT: 380 QTc: 435 [place]: P: 30 NE: 154 QRS: -18 T: 60 INTERPRETIVE STATEMENTS: Normal sinus rhythm Minimal voltage criteria for LVH, may be normal variant Borderline ECG No previous ECG available for comparison Electronically Signed On 09-06-21 08:47:45 [employer] by Matthew Gleason
[2021-09-06] MEDS ORDERED: POTASSIUM CL SA 10 MEQ TAB PO ONE (09:00)
[2021-09-06] MEDS: VANCOMYCIN 1.75 GM in NA CHLORIDE 0.9% 500 ML IVPB SCH (09:03)
[2021-09-06] MEDS: NA CHLORIDE 0.9% 1,000 ML IV SCH (09:03)
--- NOTE | 2021-09-06 12:47 | PN ---
The patient's hand feels much better today. He denies any problems with dog or cat bites. No tropic al animals. No closed water infections. He does have an infection of his nose, but he was draining himself. The wound looks inflamed this time. The hand markedly improved. Sensation intact. He is able to move the fingers. Plan: We will begin dressing changes and plan surgery for later this week. We are waiting for cultu re report. ROSA/HARRY Voice ID: [id number] Report ID: [id number]
[2021-09-06] MEDS ORDERED: VANCOMYCIN 1.75 GM in NA CHLORIDE 0.9% 500 ML IVPB SCH (14:00)
[2021-09-06] MEDS: Levofloxacin 750mg IV 750 MG/150 ML BAG IV SCH (14:06)
--- NOTE | 2021-09-06 17:04 | P.PN ---
Subjective Date of Service: 09/06/21 Chief Complaint: Swollen painful left hand Patient taken to the OR yesterday by Dr. Onofre who performed an incision in the palmar aspect of hand. He state his pain is much better. No fever. Physical Examination - Vital Signs Temperature: 97.5 F Blood Pressure: 121/86 Pulse: 72 Respirations: 21 Pulse Ox (%): 96 Assessment And Plan - Current Problems (Diagnosis) (1) Cellulitis of hand Current Visit: Yes Status: Acute (2) Tenosynovitis of left hand Current Visit: Yes Status: Acute (3) Hypertension Current Visit: Yes Status: Acute (4) Coronary artery disease Current Visit: Yes Status: Acute - Plan Continue IV Levaquin and vancomycin. Pain management with IV morphine and IV Toradol. Dr. Onofre is following and planning secondary wound closure within 2 days. No anticoagulation in anticipation for surgery. Diet as tolerated. Follow blood cultures and deep tissue wound culture.
[2021-09-07] MEDS: VANCOMYCIN 1.75 GM in NA CHLORIDE 0.9% 500 ML IVPB SCH (01:06)
[2021-09-07 05:31] LABS: Absolute Lymphocytes (CBC) 2.3 K/uL (0.7-4.9); Hematocrit 36.3 % (39.6-49.0); Lymphocytes % 25.5 % (15.3-44.8); RBC Red Blood Cell Count 4.11 M/uL (4.33-5.43)
[2021-09-07 05:47] LABS: Potassium 3.7 mmol/L (3.5-5.1)
--- NOTE | 2021-09-07 06:16 | P.PN ---
Date of Service: 09/07/21 Subjective: No acute events overnight Patient with left hand wrapped, serosanguineous drainage noted on dressing Pain slowly improving, able to wiggle fingers with more range of motion ROS: 10 point ROS as noted above, otherwise negative Physical exam GEN: Alert, oriented, NAD HEENT: Normal conjunctiva, sclera anicteric CV: Regular rate and rhythm, no edema Pulm: Nonlabored respirations on room air Integumentary: L hand with dressing in place, serosanguineous drainage noted on dressing, wiggles fingers Neuro: Normal speech, normal affect Problem List Tenosynovitis and cellulitis of the left hand Hypertension CAD Continue empiric antibiotics, Levaquin and vancomycin Wound culture pending, no specific growth at this time Dr. Onofre consulted, s/p I&D, plan for wound closure tomorrow Diet as tolerated, n.p.o. after midnight Blood cultures remain negative as well Patient with penicillin allergy Code: full Dispo: home, anticipate in 1-2 days, on PO antibiotic Time Spent Managing Pts Care (In Minutes): 35
[2021-09-07] MEDS: MEPERIDINE HCL 50 MG/ML IM PRN ×3 (08:46→20:16)
[2021-09-07] MEDS ORDERED: POTASSIUM 25 MEQ EFFERV TAB PO ONE (09:00)
[2021-09-07] MEDS: NICOTINE 14 MG/PAT TD SCH (11:40)
[2021-09-07] MEDS: CODEINE 30MG/APAP 300MG TAB PO PRN (12:09)
[2021-09-07] MEDS: Levofloxacin 750mg IV 750 MG/150 ML BAG IV SCH (15:00)
[2021-09-07] MEDS: VANCOMYCIN 1.5 GM in NA CHLORIDE 0.9% 500 ML IVPB SCH (21:11)
[2021-09-08] MEDS: MEPERIDINE HCL 50 MG/ML IM PRN ×4 (03:55→21:46)
[2021-09-08 05:53] LABS: Potassium 3.6 mmol/L (3.5-5.1)
--- NOTE | 2021-09-08 06:24 | P.PN ---
Date of Service: 09/08/21 Subjective: Continues with moderate pain, uncontrolled with p.o. medication only Plan for or today for potential closure ROS: 10 point ROS as noted above, otherwise negative Physical exam GEN: Alert, oriented, NAD HEENT: Normal conjunctiva, sclera anicteric CV: Regular rate and rhythm, no edema Pulm: Nonlabored respirations on room air Integumentary: L hand with dressing in place, wiggles fingers more easily Neuro: Normal speech, normal affect Problem List Tenosynovitis and cellulitis of the left hand Hypertension CAD Continue empiric antibiotics, Levaquin and vancomycin Wound culture, no growth at this time Dr. Onofre consulted, s/p I&D, plan for wound closure today NPO this AM Blood cultures remain negative as well Patient with penicillin allergy pain medication as needed, currently still requiring IV Code: full Dispo: home, anticipate tomorrow, on PO antibiotic Time Spent Managing Pts Care (In Minutes): 35
[2021-09-08] MEDS: NICOTINE 14 MG/PAT TD SCH (08:42)
[2021-09-08] MEDS ORDERED: POTASSIUM CL SA 10 MEQ TAB PO ONE (09:00)
[2021-09-08] MEDS ORDERED: MIDAZOLAM HCL 2 MG/2 ML INJ ONE ×2 (12:02→14:25)
[2021-09-08] MEDS ORDERED: propofoL 200 MG/20 ML VIAL IV ONE (12:02)
[2021-09-08] MEDS ORDERED: ONDANSETRON 4 MG/2 ML VIAL ONE (12:02)
[2021-09-08] MEDS ORDERED: FENTANYL CITR 100 MCG/2 ML ONE ×2 (12:02→14:25)
[2021-09-08] MEDS ORDERED: LIDOCAINE 2% MPF 5 ML VIAL ONE (12:03)
[2021-09-08] MEDS ORDERED: Ringers Lactate 1,000 ML IV ONE (12:27)
[2021-09-08] MEDS: Levofloxacin 750mg IV 750 MG/150 ML BAG IV SCH (13:57)
[2021-09-08] MEDS ORDERED: LIDOCAINE 1% MPF 5 ML VIAL ONE (14:24)
[2021-09-08] MEDS ORDERED: dexAMETHasone 10 MG/ML VIAL ONE (14:25)
[2021-09-08] MEDS ORDERED: ROPLVACAINE HCL 40 ML ONE (14:26)
[2021-09-08] MEDS: HYDROMORPHONE HCL 1 MG/ML INJ ONE ×2 (15:03→15:09)
[2021-09-08] MEDS: VANCOMYCIN 1.5 GM in NA CHLORIDE 0.9% 500 ML IVPB SCH (16:00)
--- NOTE | 2021-09-09 01:09 | OP ---
Surgeon: Jose Maria Onofre MD Preoperative Diagnosis: Open wound, left hand. Postoperative Diagnosis: Open wound, left hand. Procedure Performed: Debridement of skin and subcu tissue, simple closure of 13 cm. Anesthesia: General. Procedure In Detail: After satisfactory induction of general anesthesia, left arm was prepped with Betadine scrub and Betadine paint. Dry sterile drapes were applied in the usual manner. Arm was elevated. Tourniquet was inflated to 250 mmHg. Hand was placed in roll lock table. Curette forceps and scissors were used to debride skin and subcutaneous tissue as needed. Cultures were taken at deep wrist. Then wound was coned, jet lavage irrigated with 3 L of Betadine solution. Tourniquet was released. Electrocautery was used for hemostasis. Wound was partially closed with 4-0 Prolene simple sutures. The proximal part of the wound was left open for drainage. Dressed with Xeroform, 2 Kerlix. The patient tolerated procedure well and returned to Recovery. ROSA/HARRY Voice ID: [id number] Report ID: [id number] MONIQUE
[2021-09-09 06:06] LABS: Absolute Lymphocytes (CBC) 1.1 K/uL (0.7-4.9); Hematocrit 37.4 % (39.6-49.0); Lymphocytes % 8.9 % (15.3-44.8); MPV 8.1 fL (7.6-11.3); RBC Red Blood Cell Count 4.22 M/uL (4.33-5.43)
[2021-09-09 06:20] LABS: Potassium 4.4 mmol/L (3.5-5.1)
[2021-09-09] MEDS: MEPERIDINE HCL 50 MG/ML IM PRN ×2 (07:24→12:40)
[2021-09-09 07:46] LABS: Blood Morphology Comment NOTED (NOT SEEN); Platelet Estimate ADEQ; White Blood Cell Scan OK (OK)
[2021-09-09 07:47] LABS: Poikilocytosis SLIGHT
[2021-09-09] MEDS ORDERED: HYDROCODONE/APAP 7.5/325 MG TAB PO PRN (07:55)
[2021-09-09 08:25] VITALS: O2SAT 95
[2021-09-09] MEDS: VANCOMYCIN 1.5 GM in NA CHLORIDE 0.9% 500 ML IVPB SCH (08:45)
[2021-09-09] MEDS: NICOTINE 14 MG/PAT TD SCH (09:45)
[2021-09-09 17:00] VITALS: BP 146/88; TEMP 97.3
--- NOTE | 2021-09-09 18:20 | P.DS ---
Admission Date: 09/05/21 Discharge Date: 09/09/21 Disposition: ROUTINE DISCHARGE Discharge Condition: GOOD Reason for Admission: Swollen painful left hand Consultations: Dr. Onofre - Plastic Surgery Procedures: Problem List Tenosynovitis and cellulitis of the left hand Hypertension CAD Brief History of Present Illness: 61-year-old gentleman with a history of hypertension, coronary artery disease presented to the emergency department with a complaint of pain and swelling of the left hand of 2 days duration. Patient reported he started with a painful swelling in the left fifth finger which quickly spread to involve the whole hand, saw a streak of redness on the radial side of the distal one third of the forearm. Patient therefore presented to the ED for evaluation. He stated he does not recall any insect bite, does not own any pets so no animal bite. 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 He also had a saw cut on the left second digit about 1 week ago and the wound is healing. He has no leukocytosis or fever. Dr. Kaminski-hand surgeon was contacted recommended admission to hospitalist service for him to consult. Patient admitted for further management. Hospital Course: Patient was found to have Tenosynovitis of L hand/wrist. He was taken to the OR by Dr. Onofre and underwent incision/drainage. Noted to have some purulent drainage. Cultures remained negative. He was empirically covered with IV antibiotics. He had gradual improvement and was subsequently taken back to OR on 09/08 for partial wound closure. Discharged home with pain medication and antibiotics. twice daily wound dressing changes as recommended follow up with Dr. Onofre in 1 week Vital Signs/Physical Exam: Temp Pulse Resp BP Pulse Ox 97.3 F 78 16 146/88 H 97 09/09/21 16:00 09/09/21 16:00 09/09/21 16:00 09/09/21 16:00 09/09/21 16:00 Physical exam GEN: Alert, oriented, NAD HEENT: Normal conjunctiva, sclera anicteric CV: Regular rate and rhythm, no edema Pulm: Nonlabored respirations on room air Integumentary: L hand with dressing in place, wiggles fingers more easily; wound open over wrist, closed on hand Neuro: Normal speech, normal affect Laboratory Data at Discharge: WBC 11.90 K/uL (4.3-10.9) H D 09/09/21 05:31 Hgb 12.6 g/dL (13.6-17.9) L 09/09/21 05:31 Hct 37.4 % (39.6-49.0) L 09/09/21 05:31 Plt Count 361 K/uL (152-406) 09/09/21 05:31 PT 12.4 SECONDS (9.5-12.5) 09/05/21 09:29 INR 1.08 09/05/21 09:29 Sodium 134 mmol/L (136-145) L 09/09/21 05:31 Potassium 4.4 mmol/L (3.5-5.1) 09/09/21 05:31 BUN 24 mg/dL (7-18) H 09/09/21 05:31 Creatinine 1.23 mg/dL (0.55-1.3) 09/09/21 05:31 Glucose 126 mg/dL (74-106) H 09/09/21 05:31 Phosphorus 3.2 mg/dL (2.5-4.9) 09/06/21 04:16 Magnesium 2.0 mg/dL (1.8-2.4) 09/06/21 04:16 Total Bilirubin 0.4 mg/dL (0.2-1.0) 09/05/21 09:29 AST 18 U/L (15-37) 09/05/21 09:29 ALT 24 U/L (12-78) 09/05/21 09:29 Alkaline Phosphatase 127 U/L (45-117) H 09/05/21 09:29 Home Medications: Amlodipine [Norvasc*] 1 tab PO DAILY 09/06/21 Atorvastatin Calcium [Lipitor*] 1 tab PO BEDTIME 09/06/21 Gabapentin 1 tab PO TID 09/06/21 Losartan/Hydrochlorothiazide [Losartan-Hctz 100-12.5 mg Tab] 50 mg PO DAILY 09/06/21 Metoprolol Succinate [Toprol Xl] 0.5 tab PO DAILY 09/06/21 Hydrocodone 7.5/APAP 325 [[place] 7.5/325 mg*] 1 tab PO Q6H PRN 7 Days #28 tab 09/09/21 Smz./Tmp. [Bactrim Ds 800 MG/160 MG] 1 tab PO BID 10 Days #20 tab 09/09/21 New Medications: Smz./Tmp. [Bactrim Ds 800 MG/160 MG] 1 tab PO BID 10 Days #20 tab Hydrocodone 7.5/APAP 325 [[place] 7.5/325 mg*] 1 tab PO Q6H PRN 7 Days #28 tab PRN Reason: Pain Scale 5-7 (Moderate) Physician Discharge Instructions: Patient was found to have tenosynovitis of L hand/wrist. He was taken to the OR by Dr. Onofre and underwent incision/drainage. Noted to have some purulent drainage. Cultures remained negative. He was empirically covered with IV antibiotics. He had gradual improvement and was subsequently taken back to OR on 09/08 for partial wound closure. Discharged home with pain medication and antibiotics. twice daily wound dressing changes as recommended follow up with Dr. Onofre in 1 week Diet: Regular Activity: Ad francisca Followup: Jose Maria Onofre MD [ACTIVE - CAN ADMIT] - 09/15/21 (follow up in [place] office, call to schedule an appointment) NONE,NONE [Primary Care Provider] - Time spent managing pt's care (in minutes): 45
== END 2021-09-09 17:00 | disposition home or self-care (01) | DRG 501 ==
LOC: ER 09:12 → ERHOLD 12:00 → 2ND 15:17
PROVIDERS: ADMIT Internal Medicine; ATTEND Internal Medicine
PROC: 0JN Subcutaneous Tissue and Fascia, Release (ICD-10-PCS; 2021-09-05)
PROC: 0XQ Anatomical Regions, Upper Extremities, Repair (ICD-10-PCS; 2021-09-05)
PROC: 01N53ZZ Release Median Nerve, Percutaneous Approach (ICD-10-PCS; principal; 2021-09-05 13:30)
PROC: 0JDK3ZZ Extraction of Left Hand Subcutaneous Tissue and Fascia, Percutaneous Approach (ICD-10-PCS; 2021-09-08)
PROC: 0JDH3ZZ Extraction of Left Lower Arm Subcutaneous Tissue and Fascia, Percutaneous Approach (ICD-10-PCS; 2021-09-08)
DX: M65.842 Other synovitis and tenosynovitis, left hand (principal); L03.114 Cellulitis of left upper limb; M65.832 Other synovitis and tenosynovitis, left forearm; I25.10 Atherosclerotic heart disease of native coronary artery without angina pectoris; I10 Essential (primary) hypertension; Z88.0 Allergy status to penicillin; F17.210 Nicotine dependence, cigarettes, uncomplicated; Z20.822 Contact with and (suspected) exposure to COVID-19
CPT/HCPCS: 36415; 71045; 80048; 80076; 80202; 81003; 81015; 83735; 83880; 84100; 84484; 85025; 85610; 87040; 87070; 87075; 87205; 88304; 88305; 93005; 99285; J0330; J0692; J1100; J1170; J2175; J2250; J2405; J2704; J2795; J3010; J3370; J7030; J7040; J7050; J7120; U0003

== ENCOUNTER 2021-09-16 07:51 | Day surgery (SDC) | payer SELFPAY ==
[2021-09-16] MEDS ORDERED: Ringers Lactate 1,000 ML IV ONE (08:18)
[2021-09-16] MEDS ORDERED: ACETAMINOPHEN 500 MG TAB ONE (08:57)
[2021-09-16] MEDS ORDERED: HYDROCODONE/APAP 7.5/325 MG TAB ONE (08:57)
[2021-09-16] MEDS ORDERED: CELECOXIB 100 MG CAPSULE ONE (09:03)
[2021-09-16] MEDS ORDERED: CEFAZOLIN SODIUM 1 GM/VIAL ONE (09:25)
[2021-09-16] MEDS ORDERED: propofoL 200 MG/20 ML VIAL IV ONE (09:45)
[2021-09-16] MEDS ORDERED: FENTANYL CITR 100 MCG/2 ML ONE (09:46)
[2021-09-16] MEDS ORDERED: MIDAZOLAM HCL 2 MG/2 ML INJ ONE (09:46)
[2021-09-16] MEDS ORDERED: LIDOCAINE 2% MPF 5 ML VIAL ONE (09:46)
[2021-09-16] MEDS ORDERED: dexAMETHasone 10 MG/ML VIAL ONE (10:53)
[2021-09-16] MEDS ORDERED: KETOROLAC 30 MG/ML INJ ONE (10:53)
[2021-09-16] MEDS ORDERED: ONDANSETRON 4 MG/2 ML VIAL ONE (10:59)
[2021-09-16] MEDS ORDERED: SILVER SULFADIAZINE 1% 25 GM TOP ONE (11:03)
[2021-09-16] MEDS: HYDROMORPHONE HCL 2 MG/ML inj ONE ×4 (11:38→11:53)
[2021-09-16] MEDS: HYDROMORPHONE HCL 1 MG/ML INJ ONE ×2 (11:58→12:03)
[2021-09-16] MEDS: FENTANYL CITR 100 MCG/2 ML ONE ×2 (12:05→12:12)
[2021-09-16] MEDS ORDERED: CODEINE 30MG/APAP 300MG TAB ONE (12:30)
[2021-09-16 14:53] VITALS: BP 116/88; TEMP 97; O2SAT 96
--- NOTE | 2021-09-21 14:07 | OP ---
Surgeon: Jose Maria Onofre MD Preoperative Diagnosis: Acute and chronic tenosynovitis of the left hand and wrist performed. Postoperative Diagnosis: Acute and chronic tenosynovitis of the left hand and wrist performed. Procedure Performed: Tenosynovectomy. Anesthesia: General. Procedure In Detail: After satisfactory induction of general anesthesia, the left hand, forearm, and wrist were prepped with Betadine scrub and paint. Dry sterile drapes were applied in sterile manner . The incision was extended proximally and sutures removed from previous closure partial closure. T he patient had previous pathology of chronic and acute tenosynovitis inflammation. The median nerve was identified. All fibrous tissue and infected tenosynovitis were resected off the flexor tendons. Medial nerve was quite preserved as well as the superficial arch. The wound was jet lavaged, irriga kt with 3 L of Betadine solution. Tourniquet was released. Electrocautery was used for hemostasis. Wound was closed with horizontal vertical mattress simple sutures of 2-0 nylon and kurtis. Closur e length was approximately 13 cm. Dressed with Xeroform, Kerlix. Patient tolerated the procedure we ll and returned to Recovery. ROSA/HARRY Voice ID: [id number] Report ID: [id number]
--- NOTE | 2021-09-21 14:07 | HP ---
Date of Admission: 09/16/2021 History Of Present Illness: A 61-year-old white male, right-hand dominant, presents with recurrent d rainage from the left hand, status post incision and drainage, tenosynovectomy done approximately 10 days ago. He does not drink, continues to smoke. He has history of asthma, high blood pressure, and myocardial infarction x5. He has neck fusion, ankle fracture, and colostomy after the last injury, and closure of colostomy. He is also status post debridement and tenosynovectomy of the hand. Allergies: PENICILLIN. Medications: He is on gabapentin. Review of Systems: He is 5 feet 10 inches, 220 pounds. His review of systems, otherwise unremarkable. He has a nonhealing wound of the volar aspect of the wrist and forearm. The hand portion is healed. There appears to be tenosynovitis again. This may r epresent a mycobacterium infection. Assessment: Open wound of the left wrist and forearm. Plan: Debridement, tenosynovectomy, possible closure. HARSH Voice ID: [id number]
== END 2021-09-16 13:35 | disposition home or self-care (01) ==
LOC: OR 07:51
PROVIDERS: ATTEND Specialist
PROC: 0LB80ZZ Excision of Left Hand Tendon, Open Approach (ICD-10-PCS; principal; 2021-09-16 10:00)
DX: M65.842 Other synovitis and tenosynovitis, left hand (principal); Z20.822 Contact with and (suspected) exposure to COVID-19; Z88.0 Allergy status to penicillin
CPT/HCPCS: 87070; 87075; 87205; 88304; J0690; J1100; J1170; J2250; J2405; J2704; J3010; J7120; U0003

== ENCOUNTER 2021-11-08 08:33 | Emergency (ER) | payer SELFPAY ==
--- OUTSIDE RECORDS SUMMARY | 2021-11-08 08:36 | XMS REPORT | Continuity of Care Document ---
:1960 Author Organization [facility] t Address [address] [place] [address] Care Team Providers Name Role Phone Obey Serrano [facility] Primary [facility] Physic madeleine Thiago DARBY E Attending Clinician Tony Knapp Attending Clinician Unavailable Advance Directives Directive Decision Effective Date Termination Date Comments Sour ce Yes N/A [facility] Problems Condition Condition Condition Status Onset Resolution Last Treating Co mments Source Name Details Category Date Date Treatment Clinician Date Infection Infection Disease Active Uni vers of left of left 3-19 ity of hand hand 00:00: [address] Branch NSTEMI NSTEMI Disease Active Univers (non-ST (non-ST 5-09 ity of elevated elevated 00:00: [place] myocardial myocardial 00 Me dical infarction infarction Br anch ) ) Obesity Obesity Disease Active Univers (BMI (BMI 5-09 ity of 30-39.9) 30-39.9) 00:00: [address] Branch Encounter Encounter [id number] Active 2019-072020-04-22 for for 0-14 21:38:09 observatio observatio 00:00: n for n for 00 other other suspected suspected diseases diseases and and conditions conditions ruled out ruled out (Z03.89)On set: 0 Allergies, Adverse Reactions, Alerts Allergy Allergy Status Severity Reaction(s) Onset Inactive Treating Comm ents Source Name Type Date Date Clinician Codesivan Propensi Active Rash 2021-0 Univers Hcl ty to 3-26 ity of adverse 00:00: [place] reaction 00 Medical s Branch Penicill Propensi Active Rash Tolerated Uni vers ins ty to 10-02 unasyn on ity of adverse 00:00: 09/2021 [place] reaction 00 10/04 1019 Medic al s ?per Branch nurse has tolerated 3 doses.. lde penicill Allergy Active Rash in codeine Allergy Active Rash Social History Social Habit Start Date Stop Date Quantity Comments Source r/o PTSD 2020-04-27 00:00:00 Exposure to Not sure University of SARS-CoV-2 (event) [facility] History of tobacco Snuff User Univer sity of use [place] [facility] History SDKS University o f Alcohol Frequency [facility] edical Branch History SDKS University o f Alcohol Std Drinks [facility] Branch History [facility] o f Alcohol Binge [facility] al Branch Alcohol intake 2021-10-09 2021-10-09 Current drinker Unive rsity of 00:00:00 00:00:00 of alcohol [facility] (finding) Branch Cigarettes smoked 2020-11-15 2020-11-15 Univers ity of current (pack per 00:00:00 00:00:00 [facility]) - Reported Branch Cigarette 2020-11-15 2020-11-15 University of pack-years 00:00:00 00:00:00 [facility] Tobacco use and 2020-11-15 2020-11-15 Current user Univers ity of exposure 00:00:00 00:00:00 [facility] Tobacco Comment 2020-11-15 2020-11-15 can few months Unive rsity of 00:00:00 00:00:00 [facility] Alcohol Comment 2020-11-15 2020-11-15 beer, 1-2/day Univer sity of 00:00:00 00:00:00 [facility] Sex Ass[birth year] At [birth year] Universit y of 00:00:00 00:00:00 [facility] Smoking Status Start Date Stop Date Source Tobacco smoking consumption [facility] Current every day smoker 2020-11-15 00:00:00 Uni versity of [facility] Medications Ordered Filled Start Stop Current Ordering Indication Dosage Frequency Signature Comments Components Source Medication Medication Date Date Medication? Clinician (SIG) Name Name HYDROXYZINE Yes 50mg Take 50 mg Univers HCL ORAL 4-05 by mouth ity of 09:52: at [place] 14 bedtime. Medical Branch OLANZapine Yes 15mg Take 15 mg U nivers 15 mg 4-05 by mouth ity of tablet 09:52: at [place] 14 bedtime. Medical Branch prazosin 2 Yes 2mg Take 2 mg Un ximena mg capsule 4-05 by mouth ity o f 09:52: at [place] 14 bedtime. Medical Branch amoxicillin Yes [id number] 1{tbl} Take 1 Univers -clavulanat 4-02 tablet by ity of e 875-125 00:00: mouth [place] mg per 00 every 12 Medical tablet (twelve) Branch hours. ibuprofen Yes [id number] 800mg Take 1 U nivers 800 mg 4-02 tablet by ity of tablet 00:00: mouth [place] 00 every 8 Medical (eight) Branch hours as needed for Pain (scale 4-6) or Temp > 38.5 C. sodium Yes [id number] Apply to U nivers hypochlorit 3-28 area(s) 2 ity of e 0.125 % 00:00: (two) [place] solution 00 times Medical daily. Branch HYDROcodone Yes [id number] 1{tbl} Take 1 Un ximena -acetaminop 3-28 tablet by ity of hen 5-325 00:00: mouth [place] mg tablet 00 every 6 Medical (six) Branch hours as needed for Pain (scale 7-10) for up to 10 doses. Indication s: acute pain metoprolol Yes [id number] 12.5mg Take 0.5 Univers succinate 5-14 tablets by ity of XL 25 mg 24 00:00: mouth [place] hr tablet 00 daily. Medical Branch metoprolol Yes [id number] 12.5mg Take 0.5 Univers succinate 5-13 tablets by ity of XL 25 mg 24 00:00: mouth [place] hr tablet 00 daily. Medical Branch aspirin 81 Yes [id number] 81mg Take 1 Univers mg chewable 5-11 tablet by ity of tablet 00:00: mouth [place] 00 daily. Medical Branch amLODIPine Yes [id number] 10mg Take 1 U nivers 10 mg 5-10 tablet by ity of tablet 00:00: mouth [place] 00 daily. Medical Branch FLUoxetine Yes [id number] 60mg Take 3 Univers (PROZAC) 20 5-10 capsules ity of mg capsule 00:00: by mouth [place] as 00 daily. Medical Branch gabapentin Yes [id number] 600mg Take 1 Univers 600 mg 5-10 tablet by ity of tablet 00:00: mouth 3 [place] 00 (three) Medical times Branch daily. losartan 50 Yes [id number] 50mg Take 1 Univers mg tablet 5-10 tablet by ity o f 00:00: mouth [place] 00 daily. Medical Branch atorvastati Yes [id number] 80mg Take 1 Univers n 80 mg 5-10 tablet by ity of tablet 00:00: mouth at [place] 00 bedtime. Medical Branch triamcinolo Yes [id number] Apply to Univers ne 5-10 area(s) 2 ity of acetonide 00:00: (two) [place] 0.1 % cream 00 times Medical daily. Branch AmLODIPine* 2019-07 Yes [id number] 10mg AmLODIPine - *; 10 mg 07:59: PO/By 00 mouth for hypertensi on take one tablet in the morningSta rt: 0Ordered: Willy Yoon OLANZapine* 2019-07 Yes [id number] 2.5mg OLANZapine - *; 2.5 mg 07:58: PO/By 00 mouth for mood and clear thinking take one tablet at bed timeStart: 0Ordered: Willy Yoon Losartan* 2019-07 Yes [id number] 50mg Losartan*; 0- 50 mg 07:58: PO/By 00 mouth for hypertensi on Take one tablet in the morningSta rt: 0Ordered: Willy Yoon OLANZapine* 2019-07 Yes [id number] 5mg OLANZapine - *; 5 mg 07:57: PO/By 00 mouth for mood and clear thinking take one tablet at bed timeStart: 0Ordered: 0Willy Knappt Gabapentin* 2019-07 Yes [id number] 300mg Gabapentin 0- *; 300 mg 07:56: PO/By 00 mouth for anxiety and pain take one tablet in the morning and one tablet at bed timeStart: 0Ordered: 0Willy Knapptent FLUoxetine* 2019-07 Yes [id number] 20mg FLUoxetine 0 *; 20 mg 07:56: PO/By 00 mouth for depressed mood Take one tablet in the morningSta rt: 0Ordered: 0iWlly Knappt Albuterol 2019-07 Yes [id number] Albuterol Inhaler 0-14 [id number] Inhaler; 21:36: Take 2 00 puffs, NTE 12 puffs in 24 hours q4hr PRN for Asthma/SOB Start: 0Ordered: Laura Garcia ent Tuberculin 2019-07 Yes [id number] .1ml Tuberculin Unles s Pt P.P.D. 0-14 134676 P.P.D.; has had a 19:37: 0.1 ml ID positive 00 Daily for test or a TB Testing test in Unless Pt the last has had a 12 positive months. test or a test in the last 12 months. RoutineSta rt: 0Ordered: 0Laura Galan entComment s: Unless Pt has had a positive test or a test in the last 12 months. Ibuprofen 2019-07 Yes [id number] 400mg Ibuprofen; NTE 2 400 0-14 [id number] 400 mg PO mg in 24 19:37: PRN q4hr hours 00 for Pain NTE 2400 mg in 24 hours RoutineSta rt: 0Ordered: 0Jaron GalanenInt entComment s: NTE 2400 mg in 24 hours Maalox 2019-07 Yes [id number] 30ml Maalox; 30 NTE 120ml 0-14 [id number] ml PO PRN in 24 19:37: q6hr for hours 00 GI upset NTE 120ml in 24 hours RoutineSta rt: 0Ordered: 0Jaron GalanenInt entComment s: NTE 120ml in 24 hours Milk of 2019-07 Yes [id number] 30ml Milk of NTE 120 Magnesia 0- 825897 Magnesia; mL in 24 19:37: 30 ml PO hours 00 PRN q4hr for Constipati on NTE 120 mL in 24 hours RoutineSta rt: 0Ordered: 0Jaron GalanenInt entComment s: NTE 120 mL in 24 hours HydrOXYzine 2019-07 Yes [id number] 25mg HydrOXYzin NTE 100mg 0- 162539 e; 25 mg in 24 19:37: PO PRN hours 00 q6hr for Anxiety NTE 100mg in 24 hours RoutineSta rt: 0Ordered: 0Laura Galan entComment s: NTE 100mg in 24 hours OLANZapine 2019-07 Yes [id number] 2.5mg OLANZapine NTE 10 mg 0 168087 ; 2.5 mg PRN 19:37: PO PRN Olanzapin 00 q6hr for e in 24 moderate hr period agitation NTE 10 mg PRN Olanzapine in 24 hr period RoutineSta rt: 0Ordered: 0Jaron GalanenInt entComment s: NTE 10 mg PRN Olanzapine in 24 hr period OLANZapine 2019-07 Yes [id number] 5mg OLANZapine NTE 1 0 mg 0 [id number] ; 5 mg PO PRN 19:37: PRN q12hr Olanzapin 00 for severe e in 24 agitation hr period NTE 10 mg PRN Olanzapine in 24 hr period RoutineSta rt: 0Ordered: 0Laura Galan entComment s: NTE 10 mg PRN Olanzapine in 24 hr period losartan 50 2019-07 No [id number] 1{tab(s losartan mg oral 001 )} 50 mg oral tablet 16:04: tablet; 1 47 tab(s) orally once a dayQuantit y: 0 Refills: 0Ordered: Uzma GonsalezGeneric Substituti on Allowed amLODIPine 2019-07 No [id number] 1{tab(s amLODIPine 10 mg oral 364702 )} 10 mg oral tablet 16:04: tablet; 1 30 tab(s) orally once a dayQuantit y: 0 Refills: 0Ordered: Uzma GonsalezGeneric Substituti on Allowed Procedures This patient has no known procedures. Plan of Care Planned Activity Planned Date [...] and involve in group therapy [code = Assessandinvolveingnew [facility] erapy] Encounters Start End Encounter Admission Attending Care Care Encounter Source Date/Time Date/Time Type Type Clinicians Facility Department ID 2021-10-18 2021-10-18 Patient Gisselle Das [id number] Univers 00:00:00 00:00:00 Outreach E [place] [id number] i ty of [id number] [address] Branch 2020-04-22 2020-04-28 Inpatient Aria, 1 [facility]-2E-[id number]- 00 [id number] [place] 18:45:00 12:07:00 Willy Jimenez Salma [address] [place] [address] [facility] Results Test Description Test Time Test Comments Results Result Comments Source COMPREHENSIVE METABOLIC PANEL 2021-10-28 02:59:52 Test Item Value Reference Range Interpretation Comme nts GLUCOSE (test code = 2217) 73 MG/DL 70-99 BUN (test code = 220) 19 MG/DL 8-23 CREATININE (test code = 1.27 MG/DL 0.80-1.40 2213) eGFR (2020 CKD-EPI) (test 64 ML/MIN/1.73 >60 code = 62273) CALC BUN/CREAT (test code = 15 RATIO 6-28 2234) SODIUM (test code = 223) 143 MEQ/L 133-146 POTASSIUM (test code = 2228) 4.2 MEQ/L 3.5-5.4 CHLORIDE (test code = 221) 104 MEQ/L 95-107 CARBON DIOXIDE (test code = 23 MEQ/L -2205) CALCIUM (test code = 220) 9.7 MG/DL 8.5-10.5 PROTEIN, TOTAL (test code = 7.7 G/DL 6.1-8.3 2228) ALBUMIN (test code = 220) 4.8 G/DL 3.5-5.2 CALC GLOBULIN (test code = 2.9 G/DL 1.9-3.7 2239) CALC A/G RATIO (test code = 1.7 RATIO 1.0-2.6 2233) BILIRUBIN, TOTAL (test code <0.2 MG/DL See_Comment [Automated message] The = 2206) system which ge nerated this result transmit kt reference range: <=1.2. T he reference range was not u sed to interpret this result as normal/abnormal . ALKALINE PHOSPHATASE (test 136 U/L 40-123 H code = 2204) AST (test code = 2218) 16 U/L 9-50 ALT (test code = 2219) 14 U/L 5-50 LIPID [id number] 02:59:52 Test Item Value Reference Range Interpretation Comments CHOLESTEROL (test 135 MG/DL <200 code = 2210) TRIGLYCERIDES (test 199 MG/DL <150 H code = 2232) HDL CHOLESTEROL (test 34 MG/DL >39 L code = 2220) CALC LDL CHOL (test 71 MG/DL <100 NOTE: C ALCULATED LDL code = 2237) IS BASED ON AR-CLOUD METHOD WHICHINCLUDES ADJUSTABLE TRIGLYCERIDE:VL DL CHOLESTEROL RAT IO.THIS FACTOR VARIES B Y MEASURED TRIGLY CERIDE AND NON-HDLCHOL ESTEROL CONCENTRATIONS WITH INCREASED CALCU LATED LDL SEENIN HIGH ER TRIGLYCERIDE OR LOWER NON-HDL SPECIME NS. FOR MOREINFORMATION , SEE CLIENT ANNOUNCE MENT AT [email or web address] [email or web address] RATIO LDL/HDL 2.09 RATIO <3.55 UN LESS (test code = 2238) OTHERWISE INDICATED, ALL TESTING PER FORMED ATCLINICAL PATH [facility], [facility]. [address] [place] [address] LABORATORY DIRE CTOR: JARRED POP M.D. CLIA NUMBER [id number] CAP ACCREDITATION N O. [id number] Urine Drug Screen [id number] 18:04:00 Test Item Value Reference Interpretation Comments Range Amphetamine Negative Amphetamine Methamphetmine test includes 324060 (test code = Amphetam ine and AmphetamineMethamphe Methamp hetamine qphxc377366) . Barbiturate (206327) Negative (test code = Barbiturate(088508)) Benzodiazepines Negative (237043) (test code = Benzodiazepines(7148 32)) Cocaine Metabolite Negative (738057) (test code = CocaineMetabolite(71 4857)) Phencyclidine Negative (301200) (test code = Phencyclidine(161646 )) Drug Screen Comment NOTE : .This analysis (test code = is performed by DrugScreenComment) immunoassay. Positivefindings are unconfirmed analytical test results; ifresults do not support expected clinical finding,confirmation by an alternate methodology is recommended.Patient metabolic variables, specific drug chemistry, andspecimen characteristics can affect test outcome.Technical consultation is available [email or web address], or call toll free [phone]. Opiates (329329) Negative Opiate test (test code = includes Opiates(138585)) Codeine and Morphine only. Cannabinoid (654852) Positive (test code = Cannabinoid(619832)) Comprehensive Metabolic [id number] 14:28:00 Test Item Value Reference Range Interpretation Comments Glucose,Serum (test code = 87 mg/dL Glucose,Serum) BUN (test code = BUN) 15 mg/dL Creatinine,Serum (test code = 0.97 mg/dL Creatinine,Serum) eGFR If NonAfrican Am (344933) 84 mL/min/1.73 (test code = eGFRIfNonAfricanAm(306231)) eGFR If Am (914556) 98 mL/min/1.73 (test code = eGFRIfAfricanAm(380692)) BUN/Creat Ratio (test code = 15 BUN/CreatRatio) [...] ALT (test code = ALT) 15 {IU/L} [id number] 14:28:00 Test Item Value Reference Range Interpretation Comments TSH (039309) (test code = 1.950 {uIU/mL} TSH(476525)) Lipid Panel with LDL/HDL [id number] 14:28:00 Test Item Value Reference Range Interpretation Comments zzzCholesterol, Total 171 mg/dL (test code = zzzCholesterol,Total) Triglycerides (test code 186 mg/dL = Triglycerides) zzzHDL Cholesterol (test 33 mg/dL code = zzzHDLCholesterol) VLDL Cholesterol 33 mg/dL Calculated (test code = VLDLCholesterolCalculate d) LDL Cholesterol MARLA 105 mg/dL (NIH) (test code = LDLCholesterolCAL(NIH)) LDL/HDL Ratio (546504) 3.2 {ratio} . (test code = LDL/HDLRatio(737401)) LDL/HDL Ratio Men Women 1/ 2 Avg.Risk 1.0 1.5 Avg.Risk 3.6 3.2 2X Avg.Risk 6.2 5.0 3X Avg.Risk 8.0 6.1 CBC w/ Diff w/ [id number] 11:45:00 Test Item Value Reference Range Interpretation [...]
[2021-11-08 09:14] LABS: Absolute Lymphocytes (CBC) 1.6 K/uL (0.7-4.9); Hematocrit 39.2 % (39.6-49.0); MPV 7.9 fL (7.6-11.3); RBC Red Blood Cell Count 4.45 M/uL (4.33-5.43)
[2021-11-08] MEDS ORDERED: ONDANSETRON 4 MG/2 ML VIAL ONE (09:18)
[2021-11-08] MEDS ORDERED: MEPERIDINE HCL 25 MG/ML SYR ONE (09:18)
[2021-11-08] MEDS ORDERED: CIPROFLOXACIN 400mg IV 400 MG/200 ML BAG IV ONE (09:18)
[2021-11-08] MEDS ORDERED: METRONIDAZOLE 500mg IVPB 500 MG/100 ML BAG IV ONE (09:18)
[2021-11-08 09:21] LABS: Protime INR 1.14
[2021-11-08 09:33] LABS: Albumin 3.7 g/dL (3.4-5.0); Bilirubin Total 0.3 mg/dL (0.2-1.0); Potassium 3.9 mmol/L (3.5-5.1); Protein, Total 7.8 g/dL (6.4-8.2)
--- NOTE | 2021-11-08 10:22 | RAD REPORT ---
EXAM DESCRIPTION: CT - Abdomen Pelvis W Contrast - 11/08/2021 10:05 am CLINICAL HISTORY: Abdominal pain COMPARISON: none. TECHNIQUE: Computed axial tomography of the abdomen pelvis was obtained. 100 cc Isovue-300 was admin istered intravenously. Oral contrast was not requested which limits evaluation of bowel. All CT scans are performed using dose optimization technique as appropriate and may include automated exposure control or mA/KV adjustment according to patient size. FINDINGS: The liver, spleen, pancreas, and adrenals appear unremarkable. Renal cysts. Largest within the left kidney measures 3.2 centimeters. Normal appendix. Small inguinal hernias. Partial left colon resection. Old of the descending colon appears mildly thickened. There is no evidence of diverticulitis. IMPRESSION: Wall of the left colon appears mildly thickened which may indicate a mild colitis
--- NOTE | 2021-11-08 10:51 | EDPHYS ---
Physician Documentation [facility] Name: Miguelangel Reaves Jr Age: 61 yrs Sex: Male : 1960 Arrival Date: 11/08/2021 Time: 08:35 Bed 8 Private MD: ED Physician Tyler Goldberg HPI: 11/08 10:46 This 61 yrs old Male presents to ER via Ambulatory with complaints of abd pain, Bloody rn Stools. 10:46 The patient presents with abdominal pain in the left lower quadrant. Onset: The rn symptoms/episode began/occurred last night. The symptoms do not radiate. Associated signs and symptoms: Pertinent positives: anorexia, blood in stools, Pertinent negatives: fever, hematuria, shortness of breath, testicular pain, vomiting, vomiting blood. The symptoms are described as intermittent, sharp. Modifying factors: The symptoms are alleviated by nothing, the symptoms are aggravated by touching the area. Severity of pain: At its worst the pain was moderate in the emergency department the pain has improved. The patient has not experienced similar symptoms in the past. The patient has not recently seen a physician. Historical: - Allergies: 08:48 PENICILLINS; vg1 08:48 Codeine; vg1 - Home Meds: 08:48 losartan oral [Active]; amlodipine oral [Active]; atorvastatin oral [Active]; vg1 gabapentin oral [Active]; - PMHx: 08:48 Asthma; Hypertensive disorder; Myocardial infarction; Hypercholesterolemia; vg1 - PSHx: 08:48 heart cath; vg1 - Immunization history:: Client reports receiving the 2nd dose of the Covid vaccine. - Social history:: Smoking status: Patient reports the use of cigarette tobacco products, smokes one-half pack cigarettes per day. - Family history:: not pertinent. - Hospitalizations: : No recent hospitalization is reported. ROS: 10:46 Constitutional: Negative for fever, chills, and weight loss, Eyes: Negative for injury, rn pain, redness, and discharge, Neck: Negative for injury, pain, and swelling, Cardiovascular: Negative for chest pain, palpitations, and edema, Respiratory: Negative for shortness of breath, cough, wheezing, and pleuritic chest pain, Abdomen/GI: + abd pain and blood in stools Back: Negative for injury and pain, : Negative for injury, bleeding, discharge, and swelling, MS/Extremity: Negative for injury and deformity, Skin: Negative for injury, rash, and discoloration, Neuro: Negative for headache, weakness, numbness, tingling, and seizure. Exam: 10:46 Constitutional: This is a well developed, well nourished patient who is awake, alert, rn and in no acute distress. Head/Face: Normocephalic, atraumatic. Eyes: Periorbital areas with no swelling, redness, or edema. ENT: MMM Cardiovascular: Regular rate and rhythm. No pulse deficits. Respiratory: No increased work of breathing, no retractions or nasal flaring. Abdomen/GI: soft, + mild LLQ tenderness, no rebound Skin: Warm, dry MS/ Extremity: Pulses equal, no cyanosis. Neuro: Awake and alert, GCS 15 Vital Signs: 08:43 BP 146 / 93; Pulse 83; Resp 16; Temp 98.3(O); Pulse Ox 100% on R/A; Weight 102.06 kg; vg1 Height 5 ft. 10 in. (177.80 cm); Pain 5/10; 09:45 BP 136 / 86; Pulse 80; Resp 17; Pulse Ox 100% ; Pain 6/10; jh6 10:45 BP 150 / 80; Pulse 76; Resp 20; Pulse Ox 100% ; Pain 3/10; jh6 11:50 BP 160 / 82; Pulse 76; Resp 17; Pulse Ox 100% ; Pain 3/10; jh6 08:43 Body Mass Index 32.28 (102.06 kg, 177.80 cm) vg1 MDM: 08:36 Patient medically screened. rn 10:46 Differential diagnosis: appendicitis, bowel obstruction, diverticulitis, gastritis, GI rn Bleed, non-specific abd pain, colitis. Data reviewed: vital signs, nurses notes, lab test result(s), radiologic studies, CT scan, and as a result, I will discharge patient. Counseling: I had a detailed discussion with the patient and/or guardian regarding: the historical points, exam findings, and any diagnostic results supporting the discharge/admit diagnosis, lab results, radiology results, the need for outpatient follow up, to return to the emergency department if symptoms worsen or persist or if there are any questions or concerns that arise at home. Response to treatment: the patient's symptoms have mildly improved after treatment, and as a result, I will discharge patient. Special discussion: Based on the patient's Hx, exam, and Dx evaluation, there is no indication for emergent surgery or inpatient Tx. It is understood by the patient/guardian that if the Sx's persist or worsen they need to return immediately for re-evaluation. I discussed with the patient/guardian in detail that at this point there is no indication for admission to the hospital. It is understood, however, that if the symptoms persist or worsen the patient needs to return immediately for re-evaluation. Based on the history and exam findings, there is no indication for further emergent testing or inpatient evaluation. I discussed with the patient/guardian the need to see the pull socket assembler for further evaluation of the symptoms. ED course: CT shows mild left sided colitis, reports bleeding has stopped since arrival, will dc home with GI and pcp f/u with abx/pain meds/zofran. 11/08 08:59 Order name: CBC with Diff; Complete Time: 09:45 rn 11/08 08:59 Order name: CMP; Complete Time: 09:45 rn 11/08 08:59 Order name: Lipase; Complete Time: 09:45 rn 11/08 08:59 Order name: CT Abd/Pelvis - IV Contrast Only; Complete Time: 10:26 rn 11/08 08:59 Order name: Protime (+inr); Complete Time: 09:45 rn 11/08 08:59 Order name: Ptt, Activated; Complete Time: 09:45 rn 11/08 08:59 Order name: IV Saline Lock; Complete Time: 09:21 rn 11/08 08:59 Order name: Labs collected and sent; Complete Time: 09:21 rn Administered Medications: 09:19 Drug: Flagyl (metroNIDAZOLE) 500 mg Volume: 100 ml; Route: IVPB; Rate: 200 ml/hr; jh6 Infused Over: 30 mins; Site: right antecubital; 09:20 Drug: Zofran (Ondansetron) 4 mg Route: IVP; Site: right antecubital; jh6 09:20 Drug: Demerol (meperidine) 25 mg Route: IVP; Site: right antecubital; jh6 09:20 Drug: Cipro (ciprofloxacin) 400 mg Volume: 200 ml; Route: IVPB; Infused Over: 60 mins; jh6 Site: right antecubital; Disposition Summary: 11/08/21 10:50 Discharge Ordered Location: Home rn Problem: new rn Symptoms: have improved rn Condition: Stable rn Diagnosis - Left sided colitis with rectal bleeding rn Followup: rn - With: Kevin Cronin MD - When: As needed - Reason: Recheck today's complaints, Re-evaluation by your physician Discharge Instructions: - Discharge Summary Sheet rn - Colitis rn Forms: - Medication Reconciliation Form rn - Thank You Letter rn - Antibiotic furniture removalist - Prescription Opioid Use rn Prescriptions: - Flagyl 500 mg Oral Tablet - take 1 tablet by ORAL route every 8 hours for 10 days; 30 tablet; Refills: 0, rn Product Selection Permitted - Cipro 500 mg Oral Tablet - take 1 tablet by ORAL route every 12 hours for 10 days; 20 tablet; Refills: 0, rn Product Selection Permitted - ondansetron 4 mg Oral tablet,disintegrating - take 1 tablet by ORAL route every 8 hours As needed; 10 tablet; Refills: 0, rn Product Selection Permitted - Tylenol-Codeine #3 300 mg-30 mg Oral - take 1 tablet by ORAL route every 6-8 hours As needed; 12 tablet; Refills: 0, rn Product Selection Permitted Signatures: Dispatcher [employer] Tyler Quintero MD MD rn Garcia, Victoria RN RN vg1 Shelby Goel RN RN jh6
--- NOTE | 2021-11-08 10:51 | ER ---
Nurse's Notes [facility] Name: Miguelangel Reaves Jr Age: 61 yrs Sex: Male : 1960 Arrival Date: 11/08/2021 Time: 08:35 Bed 8 Private MD: Diagnosis: Left sided colitis with rectal bleeding Presentation: 11/08 08:43 Chief complaint: Patient states: last night had "painful diarrhea around 8 pm with vg1 sweats" and around 9pm noticed "bright red blood" States LLQ ABD pain, denies NV. Coronavirus screen: Vaccine status: Patient reports receiving the 2nd dose of the covid vaccine. Client denies travel out of the [place] in the last 14 days. Ebola Screen: Patient denies exposure to infectious person. Patient denies travel to an Ebola-affected area in the 21 days before illness onset. Initial Sepsis Screen: Does the patient meet any 2 criteria? No. Patient's initial sepsis screen is negative. Does the patient have a suspected source of infection? No. Patient's initial sepsis screen is negative. Risk Assessment: Do you want to hurt yourself or someone else? Patient reports no desire to harm self or others. Onset of symptoms was November 07, 2021. 08:43 Method Of Arrival: Ambulatory [facility] 08:43 Acuity: NETTA 3 vg1 Triage Assessment: 08:48 General: Appears uncomfortable, Behavior is cooperative. Pain: Complains of pain in vg1 left lower quadrant Pain currently is 5 out of 10 on a pain scale. GI: Reports lower abdominal pain, diarrhea. Historical: - Allergies: 08:48 PENICILLINS; vg1 08:48 Codeine; vg1 - Home Meds: 08:48 losartan oral [Active]; amlodipine oral [Active]; atorvastatin oral [Active]; vg1 gabapentin oral [Active]; - PMHx: 08:48 Asthma; Hypertensive disorder; Myocardial infarction; Hypercholesterolemia; vg1 - PSHx: 08:48 heart cath; vg1 - Immunization history:: Client reports receiving the 2nd dose of the Covid vaccine. - Social history:: Smoking status: Patient reports the use of cigarette tobacco products, smokes one-half pack cigarettes per day. - Family history:: not pertinent. - Hospitalizations: : No recent hospitalization is reported. Screenin:30 Abuse screen: Denies threats or abuse. 6 09:30 Nutritional screening: No deficits noted. Tuberculosis screening: No symptoms or risk jh6 factors identified. Fall Risk None identified. Assessment: 09:30 General: Appears in no apparent distress. Behavior is calm, cooperative, Reports abd jh6 pain with bloody stools. 09:30 Pain: Denies pain. Complains of pain in abdomen Pain currently is 6 out of 10 on a pain jh6 scale. Quality of pain is described as crampy, Pain began 1 day ago. Is continuous, Alleviated by nothing. Aggravated by eating, drinking, increased activity. Neuro: No deficits noted. Cardiovascular: No deficits noted. Respiratory: No deficits noted. GI: Abdomen is round non-distended, Last BM was November 08, 2021. Bowel sounds present X 4 quads. Abd is soft Abdomen is tender to palpation in left upper quadrant and left lower quadrant Reports lower abdominal pain, upper abdominal pain, bloating, cramping, diarrhea. Vital Signs: 08:43 BP 146 / 93; Pulse 83; Resp 16; Temp 98.3(O); Pulse Ox 100% on R/A; Weight 102.06 kg; vg1 Height 5 ft. 10 in. (177.80 cm); Pain 5/10; 09:45 BP 136 / 86; Pulse 80; Resp 17; Pulse Ox 100% ; Pain 6/10; jh6 10:45 BP 150 / 80; Pulse 76; Resp 20; Pulse Ox 100% ; Pain 3/10; jh6 11:50 BP 160 / 82; Pulse 76; Resp 17; Pulse Ox 100% ; Pain 3/10; jh6 08:43 Body Mass Index 32.28 (102.06 kg, 177.80 cm) 1 ED Course: 08:35 Patient arrived in ED. mr 08:36 Tyler Goldberg MD is Attending Physician. rn 08:48 Triage completed. vg1 08:48 Arm band placed on. vg1 09:02 Shelby Goel, RN is Primary Nurse. jh6 09:30 Placed in gown. Bed in low position. Call light in reach. Side rails up X 1. jh6 09:30 No provider procedures requiring assistance completed. Inserted saline lock: 20 gauge jh6 in right antecubital area, using aseptic technique. Blood collected. 10:07 CT Abd/Pelvis - IV Contrast Only In Process Unspecified. EDMS 10:50 Kevin Cronin MD is Referral Physician. rn 12:00 IV discontinued, intact, bleeding controlled, No redness/swelling at site. Pressure jh6 dressing applied. Administered Medications: 09:19 Drug: Flagyl (metroNIDAZOLE) 500 mg Volume: 100 ml; Route: IVPB; Rate: 200 ml/hr; jh6 Infused Over: 30 mins; Site: right antecubital; 09:20 Drug: Zofran (Ondansetron) 4 mg Route: IVP; Site: right antecubital; jh6 09:20 Drug: Demerol (meperidine) 25 mg Route: IVP; Site: right antecubital; jh6 09:20 Drug: Cipro (ciprofloxacin) 400 mg Volume: 200 ml; Route: IVPB; Infused Over: 60 mins; jh6 Site: right antecubital; Outcome: 10:50 Discharge ordered by MD. rn 12:21 Discharged to home ambulatory. jh6 12:21 Condition: good 12:21 Discharge instructions given to patient, Instructed on discharge instructions, follow up and referral plans. Demonstrated understanding of instructions, follow-up care, medications, Prescriptions given X 4. 12:22 Patient left the ED. 6 Signatures: Dispatcher [employer] [facility] Yong Gisselle Tyler Britt MD MD rn Garcia, Victoria, RN RN vg1 Shelby Goel RN RN jh6
[2021-11-08 12:42] VITALS: TEMP 98.3; O2SAT 100
[2021-11-08 12:49] VITALS: BP 160/82
== END 2021-11-08 12:22 | disposition home or self-care (01) ==
LOC: ER 08:33
DX: K51.511 Left sided colitis with rectal bleeding (principal); I10 Essential (primary) hypertension; I25.2 Old myocardial infarction; F17.210 Nicotine dependence, cigarettes, uncomplicated; Z88.0 Allergy status to penicillin; Z88.5 Allergy status to narcotic agent
CPT/HCPCS: 36415; 74177; 80053; 83690; 85025; 85610; 85730; 96374; 96375; 99284; J0744; J2175; J2405; J3490; Q9967

== ENCOUNTER → 2023-08-13 | Emergency (ER) | payer MEDICARE, SELFPAY ==
[~2023-08-13] MED LIST: HYDROCODONE/APAP 5/325 MG TAB ONE; KETOROLAC 30 MG/ML INJ ONE
--- OUTSIDE RECORDS SUMMARY | 2023-08-13 07:49 | XMS REPORT | Continuity of Care Document ---
Author Name Unknown Address [address] [facility] [address] [place] [address] [facility] Address [address] [facility] [address] [place] [address] Care Team Providers Care Teacher Adventure Education Name Role Phone OBEY F [facility], [facility] Care Physician Unavailable Stacie Zeng Attending Clinician Unavail able DYLAN CALLOWAY Attending Clinician Unavailable Cynthia Redmond Attending Clinician [phone] LAMAR DUARTE Attending Clinician Unavailable LAAMR DUARTE Attending Clinician Unavailable Doctor Unassigned, [place] Attending Clinician U Gisselle Perera RN Attending Clinician [phone] Leslie Carmichael Attending Clinician [phone] LESLIE HER Attending Clinician Unavailable ZAKIYA KEARNEY Attending Clinician Unavailable Zakiya Kearney MD Attending Clinician [phone] Jackeline Shahid RN Attending Clinician Unavailable Felecia Chiu LVN Attending Clinician [phone] LAUREN MILTON Attending Clinician U Lauren Skinner MD Attending Tamikoia n TERESA HERMAN Attending Clinician Unavailable KURT ROJAS Attending Clinician Unavailable JAYDE AVILA Attending Clinician Unavailable Willy Knapp Attending Clinician UnavailLAUREN Cole Admitting Clinician U Lauren Skinner MD Admitting Clinicia n TERESA HERMAN Admitting Clinician Unavailable KURT ROJAS Admitting Clinician Unavailable Payers Payer Name Policy Type Policy Number Effective Date Expirati on Date Source MEDICAID SSI PENDING PENDING 2020 00:00:00 Problems Condition Name Condition Details Condition Category Status Onset Date Resolution Date Last Treatment Date Treating Clinician Comments Source Infection of left hand Infection of left hand Disease Active 09-25 00:00: 00 [facility] NSTEMI (non-ST elevated myocardial infarction ) NSTEMI (non-ST elevated myocardial infarction ) Disease Active 11-15 00:00: 00 [facility] Obesity (BMI 30-39.9) Obesity (BMI 30-39.9) Disease Active 11-15 00:00: 00 [facility] Encounter for observatio n for other suspected diseases and conditions ruled out Encounter for observatio n for other suspected diseases and conditions ruled out (Z03.89)On set: 0 38633-3 Active 2019-07 0 00:00: 00 2020-04-22 21:38:09 Allergies, Adverse Reactions, Alerts Allergy Name Allergy Type Status Severity Reaction(s) Onset Date Inactive Date Treating Clinician Comments Source CODEINE HCL DRUG INGREDI Active Rash 10-02 00:00: 00 [facility] PENICILL INS Drug Class Active Rash 10-02 00:00: 00 [facility] Penicill ins Propensi ty to adverse reaction s Active Rash 10-02 00:00: 00 Tolerated unasyn on 09/2021 1019 ?per nurse has tolerated 3 doses.. lde [facility] Codeine Hcl Propensi ty to adverse reaction s Active Rash 10-02 00:00: 00 [facility] Penicill ins Propensi ty to adverse reaction s Active Rash 10-02 00:00: 00 Tolerated unasyn on 09/2021 1019 ?per nurse has tolerated 3 doses.. lde [facility] penicill in Allergy Active Rash codeine Allergy Active Rash Social History Social Habit Start Date Stop Date Quantity Comments Source r/o PTSD 2020-04-27 00:00:00 Exposure to SARS-CoV-2 (event) Not sure [facility] History of tobacco use Snuff User [facility] History SDOH Alcohol Frequency [facility] History SDOH Alcohol Std Drinks [facility] History SDOH Alcohol Binge [facility] History of Social function 2021-10-09 00:00:00 2021-10-09 00:00:00 [facility] Alcohol intake 2021-10-09 00:00:00 2021-10-09 00:00:00 Current drinker of alcohol (finding) [facility] Cigarettes smoked current (pack per day) - Reported 2020-11-15 00:00:00 2020-11-15 00:00:00 [facility] Cigarette pack-years 2020-11-15 00:00:00 2020-11-15 00:00:00 [facility] Tobacco use and exposure 2020-11-15 00:00:00 2020-11-15 00:00:00 User of smokeless tobacco [facility] Tobacco Comment 2020-11-15 00:00:00 2020-11-15 00:00:00 can few months [facility] Alcohol Comment 2020-11-15 00:00:00 2020-11-15 00:00:00 beer, 1-2/day [facility] Sex Assigned At 1960 00:00:00 1960 00:00:00 [facility] Smoking Status Start Date Stop Date Source Tobacco smoking consumption unknown [facility] Smokes tobacco daily 2020-11-15 00:00:00 [facility] Medications Ordered Medication Name Filled Medication Name Start Date Stop Date Current Medication? Ordering Clinician Indication Dosage Frequency Signature (SIG) Comments Components Source HYDROXYZINE HCL ORAL 10-12 09:52: 14 Yes 50mg Take 50 mg by mouth at bedtime. [facility] OLANZapine 15 mg tablet 10-12 09:52: 14 Yes 15mg Take 15 mg by mouth at bedtime. [facility] prazosin 2 mg capsule 10-12 09:52: 14 Yes 2mg Take 2 mg by mouth at bedtime. [facility] HYDROXYZINE HCL ORAL 10-12 09:52: 14 Yes 50mg Take 50 mg by mouth at bedtime. [facility] OLANZapine 15 mg tablet 10-12 09:52: 14 Yes 15mg Take 15 mg by mouth at bedtime. [facility] prazosin 2 mg capsule 10-12 09:52: 14 Yes 2mg Take 2 mg by mouth at bedtime. [facility] amoxicillin -clavulanat e 875-125 mg per tablet 10-09 00:00: 00 Yes [id number] 1{tbl} Take 1 tablet by mouth every 12 (twelve) hours. [facility] ibuprofen 800 mg tablet 10-09 00:00: 00 Yes [id number] 800mg Take 1 tablet by mouth every 8 (eight) hours as needed for Pain (scale 4-6) or Temp > 38.5 C. [facility] amoxicillin -clavulanat e 875-125 mg per tablet 10-09 00:00: 00 Yes [id number] 1{tbl} Take 1 tablet by mouth every 12 (twelve) hours. [facility] ibuprofen 800 mg tablet 10-09 00:00: 00 Yes [id number] 800mg Take 1 tablet by mouth every 8 (eight) hours as needed for Pain (scale 4-6) or Temp > 38.5 C. [facility] sodium hypochlorit e 0.125 % solution 10-04 00:00: 00 Yes [id number] Apply to area(s) 2 (two) times daily. [facility] HYDROcodone -acetaminop hen 5-325 mg tablet 10-04 00:00: 00 Yes [id number] 1{tbl} Take 1 tablet by mouth every 6 (six) hours as needed for Pain (scale 7-10) for up to 10 doses. Indication s: acute pain [facility] sodium hypochlorit e 0.125 % solution 10-04 00:00: 00 Yes [id number] Apply to area(s) 2 (two) times daily. [facility] HYDROcodone -acetaminop hen 5-325 mg tablet 10-04 00:00: 00 Yes [id number] 1{tbl} Take 1 tablet by mouth every 6 (six) hours as needed for Pain (scale 7-10) for up to 10 doses. Indication s: acute pain [facility] metoprolol succinate XL 25 mg 24 hr tablet 11-20 00:00: 00 Yes [id number] 12.5mg Take 0.5 tablets by mouth daily. [facility] metoprolol succinate XL 25 mg 24 hr tablet 11-20 00:00: 00 Yes [id number] 12.5mg Take 0.5 tablets by mouth daily. [facility] metoprolol succinate XL 25 mg 24 hr tablet 11-19 00:00: 00 Yes [id number] 12.5mg Take 0.5 tablets by mouth daily. [facility] metoprolol succinate XL 25 mg 24 hr tablet 11-19 00:00: 00 Yes [id number] 12.5mg Take 0.5 tablets by mouth daily. [facility] aspirin 81 mg chewable tablet 11-17 00:00: 00 Yes [id number] 81mg Take 1 tablet by mouth daily. [facility] aspirin 81 mg chewable tablet 11-17 00:00: 00 Yes [id number] 81mg Take 1 tablet by mouth daily. [facility] amLODIPine 10 mg tablet 11-16 00:00: 00 Yes [id number] 10mg Take 1 tablet by mouth daily. [facility] FLUoxetine (PROZAC) 20 mg capsule 11-16 00:00: 00 Yes [id number] 60mg Take 3 capsules by mouth daily. [facility] gabapentin 600 mg tablet 11-16 00:00: 00 Yes [id number] 600mg Take 1 tablet by mouth 3 (three) times daily. [facility] losartan 50 mg tablet 11-16 00:00: 00 Yes [id number] 50mg Take 1 tablet by mouth daily. [facility] atorvastati n 80 mg tablet 11-16 00:00: 00 Yes [id number] 80mg Take 1 tablet by mouth at bedtime. [facility] triamcinolo ne acetonide 0.1 % cream 11-16 00:00: 00 Yes [id number] Apply to area(s) 2 (two) times daily. [facility] amLODIPine 10 mg tablet 11-16 00:00: 00 Yes [id number] 10mg Take 1 tablet by mouth daily. [facility] FLUoxetine (PROZAC) 20 mg capsule 11-16 00:00: 00 Yes [id number] 60mg Take 3 capsules by mouth daily. [facility] gabapentin 600 mg tablet 11-16 00:00: 00 Yes [id number] 600mg Take 1 tablet by mouth 3 (three) times daily. [facility] losartan 50 mg tablet 11-16 00:00: 00 Yes [id number] 50mg Take 1 tablet by mouth daily. [facility] atorvastati n 80 mg tablet 11-16 00:00: 00 Yes [id number] 80mg Take 1 tablet by mouth at bedtime. [facility] triamcinolo ne acetonide 0.1 % cream 11-16 00:00: 00 Yes [id number] Apply to area(s) 2 (two) times daily. [facility] AmLODIPine* 2019-07 07:59: 00 Yes [id number] 10mg AmLODIPine *; 10 mg PO/By mouth for hypertensi on take one tablet in the morningSta rt: 0Ordered: Willy Yoon OLANZapine* 2019-07 07:58: 00 Yes [id number] 2.5mg OLANZapine *; 2.5 mg PO/By mouth for mood and clear thinking take one tablet at bed timeStart: 0Ordered: 0Lynmaria teresaWilly Losartan* 2019-07 07:58: 00 Yes [id number] 50mg Losartan*; 50 mg PO/By mouth for hypertensi on Take one tablet in the morningSta rt: 0Ordered: Willy Yoont OLANZapine* 2019-07 07:57: 00 Yes [id number] 230023 5mg OLANZapine *; 5 mg PO/By mouth for mood and clear thinking take one tablet at bed timeStart: 0Ordered: Willy Yoon Gabapentin* 2019-07 07:56: 00 Yes [id number] 300mg Gabapentin *; 300 mg PO/By mouth for anxiety and pain take one tablet in the morning and one tablet at bed timeStart: 0Ordered: Willy Yoont FLUoxetine* 2019-07 07:56: 00 Yes [id number] 20mg FLUoxetine *; 20 mg PO/By mouth for depressed mood Take one tablet in the morningSta rt: 0Ordered: Willy Yoont Albuterol Inhaler 2019-07 21:36: 00 Yes [id number] Albuterol Inhaler; Take 2 puffs, NTE 12 puffs in 24 hours q4hr PRN for Asthma/SOB Start: 0Ordered: Laura Garcia ent Tuberculin P.P.D. 2019-07 0 19:37: 00 Yes [id number] 681210 .1ml Tuberculin P.P.D.; 0.1 ml ID Daily for TB Testing Unless Pt has had a positive test or a test in the last 12 months. RoutineSta rt: 0Ordered: Laura Garcia entComment s: Unless Pt has had a positive test or a test in the last 12 months. Unless Pt has had a positive test or a test in the last 12 months. Ibuprofen 2019-07 19:37: 00 Yes [id number] 400mg Ibuprofen; 400 mg PO PRN q4hr for Pain NTE 2400 mg in 24 hours RoutineSta rt: 0Ordered: 0Dinwiddie , KristenInt entComment s: NTE 2400 mg in 24 hours NTE 2400 mg in 24 hours Maalox 2019-07 19:37: 00 Yes [id number] 30ml Maalox; 30 ml PO PRN q6hr for GI upset NTE 120ml in 24 hours RoutineSta rt: 0Ordered: 0Dinwiddie , KristenInt entComment s: NTE 120ml in 24 hours NTE 120ml in 24 hours Milk of Magnesia 2019-07 19:37: 00 Yes [id number] 30ml Milk of Magnesia; 30 ml PO PRN q4hr for Constipati on NTE 120 mL in 24 hours RoutineSta rt: 0Ordered: 0Aungdie KristenInt entComment s: NTE 120 mL in 24 hours NTE 120 mL in 24 hours HydrOXYzine 2019-07 19:37: 00 Yes [id number] 25mg HydrOXYzin e; 25 mg PO PRN q6hr for Anxiety NTE 100mg in 24 hours RoutineSta rt: 0Ordered: 0Aungdie KristenInt entComment s: NTE 100mg in 24 hours NTE 100mg in 24 hours OLANZapine 2019-07 19:37: 00 Yes [id number] 2.5mg OLANZapine ; 2.5 mg PO PRN q6hr for moderate agitation NTE 10 mg PRN Olanzapine in 24 hr period RoutineSta rt: 0Ordered: 0Dinjameldie KristenInt entComment s: NTE 10 mg PRN Olanzapine in 24 hr period NTE 10 mg PRN Olanzapin e in 24 hr period OLANZapine 2019-07 19:37: 00 Yes [id number] 5mg OLANZapine ; 5 mg PO PRN q12hr for severe agitation NTE 10 mg PRN Olanzapine in 24 hr period RoutineSta rt: 0Ordered: Laura Garcia entComment s: NTE 10 mg PRN Olanzapine in 24 hr period NTE 10 mg PRN Olanzapin e in 24 hr period losartan 50 mg oral tablet 2019-07 16:04: 47 No [id number] 1{tab(s )} losartan 50 mg oral tablet; 1 tab(s) orally once a dayQuantit y: 0 Refills: 0Ordered: Uzma GonsalezGeneric Substituti on Allowed amLODIPine 10 mg oral tablet 2019-07 16:04: 30 No [id number] 1{tab(s )} amLODIPine 10 mg oral tablet; 1 tab(s) orally once a dayQuantit y: 0 Refills: 0Ordered: Uzma GonsalezGeneric Substituti on Allowed Procedures Procedure Date / Time Performed Performing Clinicia n Source REFERRAL- REQUEST/RESPONSE 2023-01-20 05:01:00 Doctor Unassigned, [place] [facility] Plan of Care Planned Activity Planned Date Details Comments Source Diagnostic Test Pending 2020-04-28 10:50:00 Disc harge Patient [code = DischargePatient] Diagnostic Test Pending 2020-04-27 15:18:00 Emely l Signs - Routine [code = VitalSigns-Routine] Diagnostic Test Pending 2020-04-24 17:40:00 Sissy gement of Emotions [code = ManagementofEmotions] Diagnostic Test Pending 2020-04-24 17:40:00 Mgmt of Mental Illness (On Unit) [code = MgmtofMentalIllness(OnUni t)] Diagnostic Test Pending 2020-04-24 17:40:00 Spir ituality [code = Spirituality] Diagnostic Test Pending 2020-04-24 17:40:00 Ther apeutic Recreation [code = TherapeuticRecreation] Diagnostic Test Pending 2020-04-22 21:52:00 Othe r-Nursing [code = Other-Nursing] Diagnostic Test Pending 2020-04-22 19:37:00 Card iac Diet/AHA (low fat/2g Na) [code = CardiacDiet/AHA(lowfat/2g Na)] Diagnostic Test Pending 2020-04-22 19:37:00 Asse ss and involve in group therapy [code = Assessandinvolveingroupth erapy] Encounters Start Date/Time End Date/Time Encounter Type Admission Type Attending [facility] Care Facility Care Department Encounter ID Source 2023-08-09 08:48:01 Outpatient Stacie Zeng [facility] [id number] [facility] 2023-07-11 08:24:00 Outpatient Stacie Zeng [facility] [id number] [facility] 2023-10-30 13:00:00 2023-10-30 13:00:00 Outpatient DYLAN ZELAYA [facility] [id number] [facility] 2023-07-19 15:30:00 2023-07-19 16:30:00 D2Me Cynthia Ortiz 2.16.840. [id number]. [id number] 2023-06-26 13:00:00 2023-06-26 13:00:00 Outpatient DYLAN ZELAYA [facility] [id number] [facility] 2023-05-01 08:30:00 2023-05-01 08:30:00 Outpatient LAMAR KEITH YU [facility] [id number] [facility] 2023-02-23 14:52:04 2023-02-23 14:52:04 Outpatient DEJAN WYLIE [id number] Obey Maggie Vicotr M 2023-01-20 00:00:00 2023-01-20 00:00:00 Orders Only Doctor Unassigned, [place] [facility] 1.2.840.114 350.1.13.10 4.2.7.2.686 [id number] [facility] 2023-01-19 15:28:18 2023-01-19 15:28:18 Outpatient [facility] [id number] Obey Dow 2023-01-02 10:13:37 2023-01-02 10:13:37 Outpatient [facility] [id number] Obey Dow 2022-12-19 08:37:40 2022-12-19 08:37:40 Outpatient [facility] [id number] Obey Dow 2022-09-10 13:52:02 2022-09-10 13:52:02 Outpatient [facility] [id number] Obey Dow 2022-06-16 09:14:18 2022-06-16 09:14:18 Outpatient [facility] [id number] Obey Dow 2021-10-18 00:00:00 2021-10-18 00:00:00 Patient Outreach Gisselle Das 1..840.114 350.1.13.10 4.2.7.2.686 [id number] [facility] 2021-10-12 10:30:00 2021-10-12 11:16:30 Office Visit Leslie Her [facility] 1..840.114 350.1.13.10 4.2.7.2.686 [id number] [facility] 2021-10-12 10:30:00 2021-10-12 11:16:30 Outpatient R LESLIE HER [facility] [id number] [facility] 2021-10-12 10:30:00 2021-10-12 10:30:00 Outpatient R LESLIE HER [facility] [id number] [facility] 2021-10-12 00:00:00 2021-10-12 00:00:00 Orders Only Doctor Unassigned, [place] [facility] 1..840.114 350.1.13.10 4.2.7.2.686 [id number] [facility] 2021-10-09 20:55:00 2021-10-09 23:20:00 Emergency X ZAKIYA KEARNEY [facility] ERT [id number] [facility] 2021-10-09 20:55:00 2021-10-09 23:20:00 Emergency Zakiya Kearney [facility] 1.2.840.114 350.1.13.10 4.2.7.2.686 [id number] [facility] 2021-10-09 20:55:00 2021-10-09 23:20:00 Emergency X ZAKIYA KEARNEY [facility] ERT [id number] [facility] 2021-10-09 00:00:00 2021-10-09 00:00:00 Nurse Triage Jackeline Shahid [facility] 1.2.840.114 350.1.13.10 4.2.7.2.686 [id number] [facility] 2021-10-09 00:00:00 2021-10-09 00:00:00 Orders Only Doctor Unassigned, [place] [facility] 1.2.840.114 350.1.13.10 4.2.7.2.686 [id number] [facility] 2021-10-06 00:00:00 2021-10-06 00:00:00 Transition of Care Aram Feleciadavidson [facility] 1.2.840.114 350.1.13.10 4.2.7.2.686 [id number] [facility] 2021-10-05 00:00:00 2021-10-05 00:00:00 Transition of Care Aram Feleciadavidson [facility] 1.2.840.114 350.1.13.10 4.2.7.2.686 [id number] [facility] 2021-09-25 05:22:00 2021-10-04 18:00:00 Inpatient X RAÚL-LAUREN HAYDEN [facility] SPL [id number] [facility] 2021-09-25 05:22:00 2021-10-04 18:00:00 Hospital Encounter Engle-Sirv ent, Lauren Franklin [facility] 1.0.114 350.1.13.10 4.2.7.2.686 [id number] [facility] 2021-09-24 22:45:00 2021-09-25 05:18:00 Emergency X SHAYANRACHHEATHERZAKIYA [facility] ERT [id number] [facility] 2021-09-24 22:45:00 2021-09-25 05:18:00 Emergency ShayanrachheatherZakiya [facility] 1.840.114 350.1.13.10 4.2.7.2.686 [id number] [facility] 2021-09-24 00:00:00 2021-09-24 00:00:00 Orders Only Doctor Unassigned, [place] [facility] 1.2840.114 350.1.13.10 4.2.7.2.686 [id number] [facility] 2021-03-12 00:00:00 2021-03-12 00:00:00 Orders Only Doctor Unassigned, [place] [facility] 1.2840.114 350.1.13.10 4.2.7.2.686 [id number] [facility] 2021-03-11 00:00:00 2021-03-11 00:00:00 Patient Outreach Gisselle Das 1.2840.114 350.1.13.10 4.2.7.2.686 [id number] [facility] 2021-01-12 00:00:00 2021-01-12 00:00:00 Orders Only Doctor Unassigned, [place] [facility] 1.2.840.114 350.1.13.10 4.2.7.2.686 [id number] [facility] 2020-11-18 15:11:00 2020-11-19 22:42:00 Inpatient X TERESA HERMAN [facility] MCA [id number] [facility] 2020-11-18 14:56:00 2020-11-18 14:56:00 Emergency X [facility] ERT [id number] [facility] 2020-11-14 19:30:00 2020-11-16 17:56:00 Inpatient X KURT ROJAS [facility] MCA [id number] [facility] 2020-11-14 19:28:00 2020-11-14 19:28:00 Emergency X [facility] ERT [id number] [facility] 2020-10-02 15:36:00 2020-10-02 15:36:00 Emergency X JAYDE AVILA [facility] ERT [id number] [facility] 2020-04-22 18:45:00 2020-04-28 12:07:00 Inpatient Willy Knapp 1 [facility]-73- [id number] [facility] Results Test Description Test Time Test Comments Results Result Co mments Source LIPID [id number] 02:59:52* Test Item Value Reference Range Interpretation Comme nts CHOLESTEROL (test code = 2210) 135 MG/DL <200 TRIGLYCERIDES (test code = 2232) 199 MG/DL <150 H HDL CHOLESTEROL (test code = 2220) 34 MG/DL >39 L CALC LDL CHOL (test code = 2237) 71 MG/DL <100 NOTE: CALCULATED LDL IS BASED ON AR-CLOUD METHOD WHICHINCLUDES ADJUSTABLE TRIGLYCERIDE:VLDL CHOLESTEROL RATIO.THIS FACTOR VARIES BY MEASURED TRIGLYCERIDE AND NON-HDLCHOLESTEROL CONCENTRATIONS WITH INCREASED CALCULATED LDL SEENIN HIGHER TRIGLYCERIDE OR LOWER NON-HDL SPECIMENS. FOR MOREINFORMATION, SEE CLIENT ANNOUNCEMENT AT [email or web address] RISK RATIO LDL/HDL (test code = 2238) 2.09 RATIO <3.55 UNLESS OTHERW ISE INDICATED, ALL TESTING PERFORMED PSYCHIATRICLINICAL PATHOLOGY [employer] [address] [place] [address] 17784 RESIDENT SERVICES COORDINATOR: JARRED FRIED M.D. [place] NUMBER [id number] [facility] [place] [id number] Urine Drug Screen [id number] 18:04:00* Test Item Value Reference Range Interpretation Comments Amphetamine Methamphetmine 257721 (test code = AmphetamineMethamphe [id number]) Negative Amphetamine test includes Amphetamine and Methamphetamine . Barbiturate (480941) (test code = Barbiturate(685833)) Negative Benzodiazepines (350517) (test code = Benzodiazepines(7148 32)) Negative Cocaine Metabolite (199529) (test code = CocaineMetabolite(71 4857)) Negative Phencyclidine (249979) (test code = Phencyclidine(951202 )) Negative Drug Screen Comment (test code = DrugScreenComment) NOTE : .This analysis is performed by immunoassay. Positivefindings are unconfirmed analytical test results; ifresults do not support expected clinical finding,confirmation by an alternate methodology is recommended.Patient metabolic variables, specific drug chemistry, andspecimen characteristics can affect test outcome.Technical consultation is available [email or web address], or call toll free [phone]. Opiates (253853) (test code = Opiates(571241)) Negative Opiate test includes Codeine and Morphine only. Cannabinoid (256047) (test code = Cannabinoid(085307)) Positive Comprehensive Metabolic [id number] 14:28:00* Test Item Value Reference Range Interpretation Comme nts Glucose,Serum (test code = Glucose,Serum) 87 mg/dL BUN (test code = BUN) 15 mg/dL Creatinine,Serum (test code = Creatinine,Serum) 0.97 mg/dL eGFR If NonAfrican Am (20246 1) (test code = eGFRIfNonAfricanAm(796688)) 84 mL/min/1.73 eGFR If Am (930850) (test code = eGFRIfAfricanAm(315446)) 98 mL/min/1.73 BUN/Creat Ratio (test code = BUN/CreatRatio) 15 Sodium (test code = Sodium) 139 mmol/L Potassium (test code = Potassium) 4.6 mmol/L Chloride (test code = Chloride) 103 mmol/L zzzCO2 (test code = zzzCO2) 26 mmol/L Calcium (test code = Calcium) 9.6 mg/dL Protein, Total (test code = Protein,Total) 7.4 g/dL Albumin (test code = Albumin) 4.6 g/dL Globulin, Total (test code = Globulin,Total) 2.8 g/dL A/G Ratio (test code = A/GRatio) 1.6 Bilirubin, Total (test code = Bilirubin,Total) 0.3 mg/dL Alkaline Phosphatase (test code = AlkalinePhosphatase) 103 {IU/L} AST (test code = AST) 18 {IU/L} ALT (test code = ALT) 15 {IU/L} [id number] 14:28:00* Test Item Value Reference Range Interpretation Comme [facility] TSH (207179) (test code = TSH(601561)) 1.950 {uIU/mL} Lipid Panel with LDL/HDL [id number] 14:28:00* Test Item Value Reference Range Interpretation Comme [facility] zzzCholesterol, Total (test code = zzzCholesterol,Total) 171 mg/dL Triglycerides (test code = Triglycerides) 186 mg/dL zzzHDL Cholesterol (test code = zzzHDLCholesterol) 33 mg/dL VLDL Cholesterol Calculated (test code = VLDLCholesterolCalculate d) 33 mg/dL LDL Cholesterol MARLA (NIH) (test code = LDLCholesterolCAL([facility])) 105 mg/dL LDL/HDL Ratio (556109) (test code = LDL/HDLRatio(234902)) 3.2 {ratio} . LDL/HDL Ratio Men Women 1/2 Avg.Risk 1.0 1.5 Avg.Risk 3.6 3.2 2X Avg.Risk 6.2 5.0 3X Avg.Risk 8.0 6.1 CBC w/ Diff w/ [id number] 11:45:00* Test Item Value Reference Range Interpretation Comme [facility] WBC Count (test code = WBCCount) 9.4 {x10E3/uL} zzzRBC Count (test code = zzzRBCCount) 4.77 {x10E6/uL} Hemoglobin (test code = Hemoglobin) 15.4 g/dL zzzHematocrit (test code = zzzHematocrit) 44.0 % MCV (test code = MCV) 92 fL MCH (test code = MCH) 32.3 pg MCHC (test code = MCHC) 35.0 g/dL RDW (test code = RDW) 12.1 % Platelets (test code = Platelets) 367 {x10E3/uL} Neutrophils (test code = Neutrophils) 60 % Lymphs (test code = Lymphs) 27 % Monocytes (test code = Monocytes) 8 % Eosinophils (test code = Eosinophils) 4 % Basophils (test code = Basophils) 1 % Neutrophils (Absolute) (test code = Neutrophils(Absolute)) 5.6 {x10E3/uL} Lymphs(Absolute) (test code = Lymphs(Absolute)) 2.5 {x10E3/uL} Monocytes(Absolute) (test code = Monocytes(Absolute)) 0.8 {x10E3/uL} Eosinophils(Absolute) (test code = Eosinophils(Absolute)) 0.3 {x10E3/uL} Basophils(Absolute) (test code = Basophils(Absolute)) 0.1 {x10E3/uL} Immature Granulocytes (test code = ImmatureGranulocytes) 0 % Immature Grans (Abs) (test code = ImmatureGrans(Abs)) 0.0 {x10E3/uL}
--- NOTE | 2023-08-13 08:55 | RAD REPORT ---
EXAM DESCRIPTION: CT - Thorax Wo Con - 08/13/2023 8:35 am CLINICAL HISTORY: Left chest pain status post fall COMPARISON: None TECHNIQUE: Computed axial tomography of the chest was obtained. Contrast was not requested. All CT scans are performed using dose optimization technique as appropriate and may include automated exposure control or mA/KV adjustment according to patient size. FINDINGS: The evaluation of mediastinum, sonam and vessels is limited secondary to lack of IV contras t administration. Old fracture left lateral fourth rib. Mildly displaced acute fracture left lateral seventh rib. Mildly displaced comminuted acute fractures posterior left ninth and tenth ribs No pneumothorax. Mild COPD. 6 centimeter opacity left lower lobe probably atelectasis. Mild right lower lobe atelectasis A mediastinal hematoma is not seen. A pleural effusion is not present. A pericardial effusion is not seen IMPRESSION: Fractures involving the left seventh, ninth and tenth ribs. 6 centimeter left lower lobe opacity probably atelectasis. Neoplasm is doubtful. Followup chest film in 1 month recommended for re-evaluation the
--- NOTE | 2023-08-13 08:55 | RAD REPORT ---
EXAM DESCRIPTION: CT - Abdomen Wo Contrast - 08/13/2023 8:35 am CLINICAL HISTORY: Abdominal pain COMPARISON: 2021 TECHNIQUE: Computed axial tomography from the diaphragm to the iliac crest was obtained. Oral contra st was given. IV contrast was not requested. All CT scans are performed using dose optimization technique as appropriate and may include automated exposure control or mA/KV adjustment according to patient size. FINDINGS: The evaluation of solid organs and vessels is limited secondary to the lack of IV contrast administration. The liver, spleen, adrenals, pancreas and kidneys do not demonstrate an acute traumatic injury. A 3 centimeter left renal cyst. No ascites is seen. Small umbilical hernia IMPRESSION: No acute traumatic injury involving the abdomen.
--- NOTE | 2023-08-13 09:03 | ER ---
Nurse's Notes [facility] Name: Miguelangel Reaves Jr Age: 63 yrs Sex: Male : 1960 Arrival Date: 08/13/2023 Time: 07:47 Bed 20 Private MD: Diagnosis: Multiple fractures of ribs, left side Presentation: 08/13 07:55 Chief complaint: Patient states: PATIENT STATES FELL LAST NIGHT AND HIT RIGHT BACK. db COMPLAINS OF RIB PAIN. DENIES LOC. DENIES ANY OTHER INJURY. AMBULATORY INTO ER. Coronavirus screen: Vaccine status: Patient reports receiving the 2nd dose of the covid vaccine. Client denies travel out of the [place] in the last 14 days. At this time, the client does not indicate any symptoms associated with coronavirus-19. Ebola Screen: Patient negative for fever greater than or equal to 101.5 degrees Fahrenheit, and additional compatible Ebola Virus Disease symptoms Patient denies exposure to infectious person. Patient denies travel to an Ebola-affected area in the 21 days before illness onset. No symptoms or risks identified at this time. Initial Sepsis Screen: Does the patient meet any 2 criteria? No. Patient's initial sepsis screen is negative. Does the patient have a suspected source of infection? No. Patient's initial sepsis screen is negative. Risk Assessment: Do you want to hurt yourself or someone else? Patient reports no desire to harm self or others. Onset of symptoms was August 13, 2023. 07:55 Method Of Arrival: Ambulatory db 07:55 Acuity: NETTA 4 db Triage Assessment: 08:01 General: Appears in no apparent distress. comfortable, Behavior is calm, cooperative. db Pain: Complains of pain in back. Neuro: Level of Consciousness is awake, alert, obeys commands, Oriented to person, place, time, situation. Respiratory: Airway is patent Respiratory effort is even, unlabored, Respiratory pattern is regular, symmetrical. Musculoskeletal: Circulation, motion, and sensation intact. Capillary refill < 3 seconds, Range of motion: intact in all extremities, Reports pain in back. Historical: - Allergies: 08:01 PENICILLINS; db - PMHx: 08:01 heart attack; Hypercholesterolemia; Hypertensive disorder; db - PSHx: 08:01 laminectomy; left hand; Right Ankle; db - Immunization history:: Adult Immunizations unknown. - Social history:: Smoking status: Patient reports the use of cigarette tobacco products, smokes one pack cigarettes per day. Screenin:03 [facility] ED Fall Risk Assessment (Adult) History of falling in the last 3 months, db including since admission Yes- single mechanical fall (1 pt) Confusion or Disorientation No (0 pts) Intoxicated or Sedated No (0 pts) Impaired Gait No (0 pts) Mobility Assist Device Used No (0 pt) Altered Elimination No (0 pt) Score/Fall Risk Level 0 - 2 = Low Risk Oriented to surroundings, Maintained a safe environment. Abuse screen: Denies threats or abuse. Denies injuries from another. Nutritional screening: No deficits noted. Tuberculosis screening: No symptoms or risk factors identified. Assessment: 08:03 Reassessment: SEE TRIAGE FOR INITIAL ASSESSMENT. db 09:00 Reassessment: Patient appears in no apparent distress at this time. Patient and/or db family updated on plan of care and expected duration. Pain level reassessed. Patient is alert, oriented x 3, equal unlabored respirations, skin warm/dry/pink. 09:00 General: Appears in no apparent distress. comfortable, Behavior is calm, cooperative. db Vital Signs: 07:55 BP 131 / 97; Pulse 84; Resp 18; Temp 97.9(O); Pulse Ox 100% on R/A; Weight 92.08 kg; db Height 5 ft. 11 in. ; Pain 9/10; 08:00 BP 131 / 98; Pulse 82; Resp 18; Pulse Ox 98% on R/A; db 09:00 BP 137 / 98; Pulse 79; Resp 18; Pulse Ox 97% on R/A; db 07:55 Body Mass Index 28.31 (92.08 kg, 180.34 cm) db 07:55 Pain Scale: Adult db ED Course: 07:50 Patient arrived in ED. mg5 07:52 Connie Robertson MD is Attending Physician. sp3 08:00 Beulah Thayer, WILNER is Primary Nurse. db 08:01 Triage completed. db 08:01 Arm band placed on Patient placed in an exam room. db 08:37 CT Chest Wo Con: Left post rib pain from fall In Process Unspecified. EDMS 08:37 Abdomen Wo Contrast In Process Unspecified. EDMS 09:23 INCENTIVE SPIROMETRY Sent. db 09:38 Patient has correct armband on for positive identification. Bed in low position. Call db light in reach. Side rails up X 1. Provided Education on: DISCHARGE. Pulse ox on. NIBP on. 09:38 No provider procedures requiring assistance completed. Patient did not have IV access db during this emergency room visit. Administered Medications: 08:12 Drug: Ketorolac IM 60 mg IM once Route: IM; Site: left ventrogluteal; db 09:36 Follow up: Response: No adverse reaction db 08:12 Drug: HYDROcodone-acetaminophen PO 5 mg-325 mg 2 tabs PO once Route: PO; db 09:36 Follow up: Response: No adverse reaction db Medication: 08:03 VIS not applicable for this client. db Outcome: 09:02 Discharge ordered by sp3 09:38 Discharged to home ambulatory, db 09:38 Condition: stable 09:38 Discharge instructions given to patient, Instructed on discharge instructions, follow up and referral plans. Prescriptions given X 1, 09:39 Patient left the ED. db Signatures: Dispatcher [employer] EDConnie Cadena MD MD sp3 Beulah Thayer, RN RN Gianna Stoner mg5
--- NOTE | 2023-08-13 09:03 | EDPHYS ---
Physician Documentation [facility] Name: Miguelangel Reaves Jr Age: 63 yrs Sex: Male : 1960 Arrival Date: 08/13/2023 Time: 07:47 Bed 20 Private MD: ED Physician Connie Robertson HPI: 08/13 07:56 This 63 yrs old Male presents to ER via Unassigned with complaints of Fall Injury, Rib sp3 Pain. 07:56 63-year-old male with history of hyperlipidemia, prior ID presents to the ED with chief sp3 complaint left posterior rib pain secondary to a mechanical ground-level fall yesterday and landed on the corner of a porch area made of breath. Patient denies any other injury, head injury, loss of consciousness or any other trauma related incident. On review of systems he denies headache, neck pain, anterior chest pain, shortness of breath, right-sided pain, mid back pain, abdominal pain, nausea, vomiting, diarrhea, syncope, near syncope, focal neurological deficit, loss of bowel or bladder control, extremity weakness, numbness or tingling, or any other sign or symptom on ROS at this time.. Historical: - Allergies: 08:01 PENICILLINS; db - PMHx: 08:01 heart attack; Hypercholesterolemia; Hypertensive disorder; db - PSHx: 08:01 laminectomy; left hand; Right Ankle; db - Immunization history:: Adult Immunizations unknown. - Social history:: Smoking status: Patient reports the use of cigarette tobacco products, smokes one pack cigarettes per day. ROS: 07:57 Constitutional: Negative for fever, chills, and weight loss, Eyes: Negative for injury, sp3 pain, redness, and discharge, ENT: Negative for injury, pain, and discharge, Neck: Negative for injury, pain, and swelling, Cardiovascular: Negative for chest pain, palpitations, and edema, Respiratory: Negative for shortness of breath, cough, wheezing, and pleuritic chest pain, Abdomen/GI: Negative for abdominal pain, nausea, vomiting, diarrhea, and constipation, MS/Extremity: Negative for injury and deformity, Skin: Negative for injury, rash, and discoloration, Neuro: Negative for headache, weakness, numbness, tingling, and seizure, 07:57 All other systems are negative, Exam: 07:57 Constitutional: This is a well developed, well nourished patient who is awake, alert, sp3 and in no acute distress. Head/Face: Normocephalic, atraumatic. Eyes: Pupils equal round and reactive to light, extra-ocular motions intact. Lids and lashes normal. Conjunctiva and sclera are non-icteric and not injected. Cornea within normal limits. Periorbital areas with no swelling, redness, or edema. Neck: Trachea midline, no thyromegaly or masses palpated, and no cervical lymphadenopathy. Supple, full range of motion without nuchal rigidity, or vertebral point tenderness. No Meningismus. Chest/axilla: Normal chest wall appearance and motion. Nontender with no deformity. No lesions are appreciated. Cardiovascular: Regular rate and rhythm with a normal S1 and S2. No gallops, murmurs, or rubs. Normal PMI, no JVD. No pulse deficits. Respiratory: Lungs have equal breath sounds bilaterally, clear to auscultation and percussion. No rales, rhonchi or wheezes noted. No increased work of breathing, no retractions or nasal flaring. Abdomen/GI: Soft, non-tender, with normal bowel sounds. No distension or tympany. No guarding or rebound. No evidence of tenderness throughout. Skin: Warm, dry with normal turgor. Normal color with no rashes, no lesions, and no evidence of cellulitis. MS/ Extremity: Pulses equal, no cyanosis. Neurovascular intact. Full, normal range of motion. Neuro: Awake and alert, GCS 15, oriented to person, place, time, and situation. Cranial nerves II-XII grossly intact. Motor strength 5/5 in all extremities. Sensory grossly intact. Cerebellar exam normal. Normal gait. 07:57 Back: Left posterior rib pain on multiple rib levels. No crepitus noted., Vital Signs: 07:55 BP 131 / 97; Pulse 84; Resp 18; Temp 97.9(O); Pulse Ox 100% on R/A; Weight 92.08 kg; db Height 5 ft. 11 in. ; Pain 9/10; 08:00 BP 131 / 98; Pulse 82; Resp 18; Pulse Ox 98% on R/A; db 09:00 BP 137 / 98; Pulse 79; Resp 18; Pulse Ox 97% on R/A; db 07:55 Body Mass Index 28.31 (92.08 kg, 180.34 cm) db 07:55 Pain Scale: Adult db MDM: 07:52 Patient medically screened. sp3 07:58 Data reviewed: vital signs, nurses notes, old medical records, radiologic studies. ED sp3 course: 63-year-old male with left-sided posterior rib pain secondary to mechanical fall. I am concerned about rib fracture versus rib contusion versus potential pneumothorax on a small level. Will obtain CT scan of the chest noncontrast and administer ketorolac IM and Perkins p.o. for pain control. Further diagnostics if indicated.. 09:00 ED course: CT demonstrates lateral posterior rib fractures of the seventh ninth and sp3 10th ribs with no underlying pneumothorax and no abdominal injury. Will discharge patient home on oral pain medication and follow-up with PCP as needed. Patient is return for any sudden onset of shortness of breath or worsening chest pain.. 08/13 07:56 Order name: CT Chest Wo Con: Left post rib pain from fall; Complete Time: 08:58 sp3 08/13 08:12 Order name: Abdomen Wo Contrast; Complete Time: 08:58 EDMS 08/13 09:03 Order name: INCENTIVE SPIROMETRY sp3 Administered Medications: 08:12 Drug: Ketorolac IM 60 mg IM once Route: IM; Site: left ventrogluteal; db 09:36 Follow up: Response: No adverse reaction db 08:12 Drug: HYDROcodone-acetaminophen PO 5 mg-325 mg 2 tabs PO once Route: PO; db 09:36 Follow up: Response: No adverse reaction db Disposition Summary: 08/13/23 09:02 Discharge Ordered Notes: Location: Home sp3 Condition: Stable sp3 Diagnosis - Multiple fractures of ribs, left side sp3 Followup: sp3 - With: Private Physician - When: Upon discharge from the Emergency Department - Reason: Continuance of care Discharge Instructions: - Discharge Summary Sheet sp3 - Rib Fracture sp3 - How to Use an Incentive Spirometer sp3 Forms: - Medication Reconciliation Form sp3 - Thank You Letter sp3 - Antibiotic Education sp3 - Prescription Opioid Use sp3 - Patient Portal Instructions sp3 - Leadership Thank You Letter sp3 Prescriptions: - Diclofenac Sodium 75 mg Oral Tablet Sustained Release - take 1 tablet ORAL route 2 times per day; 30 tablet; Refills: 0, Product sp3 Selection Permitted Signatures: Dispatcher [employer] Connie Khan MD MD sp3 Beulah Thayer, RN RN db
[2023-08-13 09:58] VITALS: BP 137/98; TEMP 97.9; O2SAT 97
== END ==
LOC: ER 07:47
DX: S22.42XA Multiple fractures of ribs, left side, initial encounter for closed fracture (principal); F17.210 Nicotine dependence, cigarettes, uncomplicated; I10 Essential (primary) hypertension; Z88.0 Allergy status to penicillin
CPT/HCPCS: 71250; 74150

== ENCOUNTER 2024-08-23 08:58 | Observation (INO) | payer MEDICARE, OTHER ==
--- OUTSIDE RECORDS SUMMARY | 2024-08-23 09:02 | XMS REPORT | Continuity of Care Document ---
Author Name Unknown Address [address] [facility] [address] [place] [address] [facility] Address [address] [facility] [address] [place] [address] Care Team Providers Care Bottling Attendant Name Role Phone Obey Serrano [facility], [facility] Care Physician Jesus Zeng Attending Clinician Unavail able DYLAN CALLOWAY Attending Clinician Unavailable Virgil Mcqueen Attending Clinician [phone] Angel --Cynthia Attending Clinician [phone] LAMAR DUARTE Attending Clinician Unavailable LAMAR DUARTE Attending Clinician Unavailable Doctor Unassigned, [place] Attending Clinician U Gisselle Perera RN Attending Clinician [phone] Leslie Carmichael Attending Clinician [phone] LESLIE HER Attending Clinician Unavailable ZAKIYA KEARNEY Attending Clinician Unavailable Zakiya Kearney MD Attending Clinician [phone] Zehra DARBY, Jackeline Jimenez Attending Clinician Unavailable Felecia Chiu LVN Attending Clinician [phone] LAUREN MILTON Attending Clinician U Lauren Skinner MD Attending Clinicia n TERESA HERMAN Attending Clinician Unavailable KURT ROJAS Attending Clinician Unavailable FLIP AVILA Attending Clinician Unavailable Willy Knapp Attending [...] left hand Disease Active 09-25 00:00: 00 [facility] NSTEMI (non-ST elevated myocardial infarction ) NSTEMI (non-ST elevated myocardial infarction ) Disease Active 11-15 00:00: 00 [facility] Obesity (BMI 30-39.9) Obesity (BMI 30-39.9) Disease Active 11-15 00:00: 00 [facility] Encounter for observatio n for other suspected diseases and conditions ruled out Encounter for observatio n for other suspected diseases and conditions ruled out (Z03.89)On set: 0 [id number] Active 2019-07 00:00: 00 2020-04-22 21:38:09 [id number] Panic attack Problem [facility] [id number] Mixed hyperlipid emia Problem [facility] [id number] Primary hypertensi on Problem [facility] [id number] Cigarette nicotine dependence without complicati on Problem [facility] [id number] Asbestos exposure Problem [facility] [id number] TANIA (generaliz ed anxiety disorder) Problem [facility] [id number] Primary osteoarthr itis of both knees Problem [facility] [id number] PTSD (post-trau matic stress disorder) Problem [facility] [id number] COPD exacerbati on Problem [facility] [id number] Gastrointe stinal hemorrhage associated with gastric ulcer Problem [facility] [id number] S/P colectomy Problem [facility] [id number] Mild intermitte nt asthma without complicati on Problem [facility] [id number] Chronic postoperat willi pain Problem [facility] [id number] Chronic pain syndrome Problem [facility] [id number] Coronary artery disease involving [place] coronary artery of [place] heart without angina pectoris Problem [facility] [id number] Stage 3a chronic kidney disease Problem [facility] [id number] Primary insomnia Problem [facility] [id number] Normocytic anemia Problem [facility] Overweight Overweight Problem Co [facility] [id number] Gastroesop hageal reflux disease with esophagiti s without hemorrhage Problem [facility] Allergies, Adverse Reactions, Alerts Allergy Name Allergy Type Status Severity Reaction(s) Onset Date Inactive Date Treating Clinician Comments Source CODEINE HCL DRUG INGREDI Active Rash 10-02 00:00: 00 [facility] PENICILL INS Drug Class Active Rash 10-02 00:00: 00 [facility] Penicill ins Propensi ty to adverse reaction s Active Rash 10-02 00:00: 00 Tolerated unasyn on 09/2021 1019 ?per nurse has tolerated 3 doses.. lde [facility] Codeine Hcl Propensi ty to adverse reaction s Active Rash 10-02 00:00: 00 [facility] Penicill ins Propensi ty to adverse reaction s Active Rash 10-02 00:00: 00 Tolerated unasyn on 09/2021 1019 ?per nurse has tolerated 3 doses.. lde [facility] penicill in Allergy Active Rash codeine Allergy Active Rash Penicill in Penicill in Active hives [facility] Social History Social Habit Start Date Stop Date Quantity Comments Source r/o PTSD 2020-04-27 00:00:00 Exposure to SARS-CoV-2 (event) Not sure [facility] History SDOH Alcohol Frequency [facility] History SDOH Alcohol Std Drinks [facility] History SDOH Alcohol Binge [facility] Sex Assigned At [facility] History of Tobacco Use Current Smoker [facility] History of Social function 2021-10-09 00:00:00 2021-10-09 00:00:00 [facility] Alcohol intake 2021-10-09 00:00:00 2021-10-09 00:00:00 Current drinker of alcohol (finding) [facility] Cigarettes smoked current (pack per day) - Reported 2020-11-15 00:00:00 2020-11-15 00:00:00 [facility] Cigarette pack-years 2020-11-15 00:00:00 2020-11-15 00:00:00 [facility] Tobacco use and exposure 2020-11-15 00:00:00 2020-11-15 00:00:00 User of smokeless tobacco [facility] Tobacco Comment 2020-11-15 00:00:00 2020-11-15 00:00:00 can few months [facility] Alcohol Comment 2020-11-15 00:00:00 2020-11-15 00:00:00 beer, 1-2/day [facility] Smoking Status Start Date Stop Date Source Tobacco smoking consumption unknown [facility] Current Smoker 2024-04-16 00:00:00 [facility] Medications Ordered Medication Name Filled Medication Name Start Date Stop Date Current Medication? Ordering Clinician Indication Dosage Frequency Signature (SIG) Comments Components Source clonazePAM 0.5 MG clonazePAM 0.5 MG 2023-07 1 00:00: 00 No 1{table t} QD clonazePAM 0.5 MG traZODone HCl 100 MG traZODone HCl 100 MG 2023-07 008 00:00: 00 No 1{table t_at_be dtime} QD traZODone HCl 100 MG Iron (Ferrous Sulfate) 325 (65 Fe) MG Iron (Ferrous Sulfate) 325 (65 Fe) MG 2023-07 0-08 00:00: 00 No 1{table t} Iron (Ferrous Sulfate) 325 (65 Fe) MG Tamsulosin HCl 0.4 MG Tamsulosin HCl 0.4 MG 2023-07 0-08 00:00: 00 No 1{capsu le} QD Tamsulosin HCl 0.4 MG HYDROcodone -Acetaminop hen 7.5-325 MG HYDROcodone -Acetaminop hen 7.5-325 MG 2023-07 0-03 00:00: 00 No 1{table t_as_ne eded} TID HYDROcodon e-Acetamin ophen 7.5-325 MG Gabapentin 300 MG Gabapentin 300 MG 04-02 00:00: 00 No 1{capsu le} BID Gabapentin 300 MG Metamucil Free & Natural 43 % Metamucil Free & Natural 43 % 04-02 00:00: 00 No QD Metamucil Free & Natural 43 % Senna-Docus ate Sodium 8.6-50 MG Senna-Docus ate Sodium 8.6-50 MG 24 00:00: 00 No 1{table t_as_ne eded} BID Senna-Docu sate Sodium 8.6-50 MG Wixela Inhub 100-50 MCG/ACT Wixela Inhub 100-50 MCG/ACT 4- 00:00: 00 No 1{puff} BID Wixela Inhub 100-50 MCG/ACT Cyclobenzap rine HCl 10 MG Cyclobenzap rine HCl 10 MG 4- 00:00: 00 No 1{table t_at_be dtime_a s_neede d} QD Cyclobenza giovany HCl 10 MG Kenalog (Triamcinol one) Kenalog (Triamcinol one) 2- 00:00: 00 No 40mg [facility] HYDROXYZINE HCL ORAL 10-12 09:52: 14 Yes 50mg Take 50 mg by mouth at bedtime. [facility] OLANZapine 15 mg tablet 10-12 09:52: 14 Yes 15mg Take 15 mg by mouth at bedtime. [facility] prazosin 2 mg capsule 10-12 09:52: 14 Yes 2mg Take 2 mg by mouth at bedtime. [facility] amoxicillin -clavulanat e 875-125 mg per tablet 10-09 00:00: 00 Yes [id number] 1{tbl} Take 1 tablet by mouth every 12 (twelve) hours. [facility] ibuprofen 800 mg tablet 10-09 00:00: 00 Yes [id number] 800mg Take 1 tablet by mouth every 8 (eight) hours as needed for Pain (scale 4-6) or Temp > 38.5 C. [facility] sodium hypochlorit e 0.125 % solution 10-04 00:00: 00 Yes [id number] Apply to area(s) 2 (two) times daily. [facility] HYDROcodone -acetaminop hen 5-325 mg tablet 10-04 00:00: 00 Yes [id number] 1{tbl} Take 1 tablet by mouth every 6 (six) hours as needed for Pain (scale 7-10) for up to 10 doses. Indication s: acute pain [facility] metoprolol succinate XL 25 mg 24 hr tablet 11-20 00:00: 00 Yes [id number] 12.5mg Take 0.5 tablets by mouth daily. [facility] metoprolol succinate XL 25 mg 24 hr tablet 11-19 00:00: 00 Yes [id number] 12.5mg Take 0.5 tablets by mouth daily. [facility] aspirin 81 mg chewable tablet 11-17 00:00: 00 Yes [id number] 81mg Take 1 tablet by mouth daily. [facility] amLODIPine 10 mg tablet 11-16 00:00: 00 Yes [id number] 10mg Take 1 tablet by mouth daily. [facility] FLUoxetine (PROZAC) 20 mg capsule 11-16 00:00: 00 Yes [id number] 60mg Take 3 capsules by mouth daily. [facility] gabapentin 600 mg tablet 11-16 00:00: 00 Yes [id number] 600mg Take 1 tablet by mouth 3 (three) times daily. [facility] losartan 50 mg tablet 11-16 00:00: 00 Yes [id number] 50mg Take 1 tablet by mouth daily. [facility] atorvastati n 80 mg tablet 11-16 00:00: 00 Yes [id number] 80mg Take 1 tablet by mouth at bedtime. [facility] triamcinolo ne acetonide 0.1 % cream 11-16 00:00: 00 Yes [id number] Apply to area(s) 2 (two) times daily. [facility] AmLODIPine* 2019-07 07:59: 00 Yes [id number] 10mg AmLODIPine *; 10 mg PO/By mouth for hypertensi on take one tablet in the morningSta rt: 0Ordered: Willy Yoont OLANZapine* 2019-07 07:58: 00 Yes [id number] 2.5mg OLANZapine *; 2.5 mg PO/By mouth for mood and clear thinking take one tablet at bed timeStart: 0Ordered: 0Willy Knappt Losartan* 2019-07 07:58: 00 Yes [id number] 50mg Losartan*; 50 mg PO/By mouth for hypertensi on Take one tablet in the morningSta rt: 0Ordered: Willy Yoontent OLANZapine* 2019-07 07:57: 00 Yes [id number] 5mg OLANZapine *; 5 mg PO/By mouth for mood and clear thinking take one tablet at bed timeStart: 0Ordered: Willy Yoontent Gabapentin* 2019-07 07:56: 00 Yes [id number] 300mg Gabapentin *; 300 mg PO/By mouth for anxiety and pain take one tablet in the morning and one tablet at bed timeStart: 0Ordered: Willy Yoon FLUoxetine* 2019-07 07:56: 00 Yes [id number] 20mg FLUoxetine *; 20 mg PO/By mouth for depressed mood Take one tablet in the morningSta rt: 0Ordered: Willy Yoont Albuterol Inhaler 2019-07 21:36: 00 Yes [id number] Albuterol Inhaler; Take 2 puffs, NTE 12 puffs in 24 hours q4hr PRN for Asthma/SOB Start: 0Ordered: 0Laura Galan ent Tuberculin P.P.D. 2019-07 19:37: 00 Yes [id number] [id number] .1ml Tuberculin P.P.D.; 0.1 ml ID Daily for TB Testing Unless Pt has had a positive test or a test in the last 12 months. RoutineSta rt: 0Ordered: 0Aaliyahe KristenInt entComment s: Unless Pt has had a positive test or a test in the last 12 months. Unless Pt has had a positive test or a test in the last 12 months. Ibuprofen 2019-07 19:37: 00 Yes [id number] 400mg Ibuprofen; 400 mg PO PRN q4hr for Pain NTE 2400 mg in 24 hours RoutineSta rt: 0Ordered: 0Angelia KristenInt entComment s: NTE 2400 mg in 24 hours NTE 2400 mg in 24 hours Maalox 2019-07 19:37: 00 Yes [id number] 30ml Maalox; 30 ml PO PRN q6hr for GI upset NTE 120ml in 24 hours RoutineSta rt: 0Ordered: 0Dinjameldie KristenInt entComment s: NTE 120ml in 24 hours NTE 120ml in 24 hours Milk of Magnesia 2019-07 19:37: 00 Yes [id number] 30ml Milk of Magnesia; 30 ml PO PRN q4hr for Constipati on NTE 120 mL in 24 hours RoutineSta rt: 0Ordered: 0Laura Galan entComment s: NTE 120 mL in 24 hours NTE 120 mL in 24 hours HydrOXYzine 2019-07 19:37: 00 Yes [id number] 25mg HydrOXYzin e; 25 mg PO PRN q6hr for Anxiety NTE 100mg in 24 hours RoutineSta rt: 0Ordered: 0Jaron GalanenInt entComment s: NTE 100mg in 24 hours NTE 100mg in 24 hours OLANZapine 2019-07 19:37: 00 Yes [id number] 2.5mg OLANZapine ; 2.5 mg PO PRN q6hr for moderate agitation NTE 10 mg PRN Olanzapine in 24 hr period RoutineSta rt: 0Ordered: 0Jaron GalanenInerik entComment s: NTE 10 mg PRN Olanzapine in 24 hr period NTE 10 mg PRN Olanzapin e in 24 hr period OLANZapine 2019-07 19:37: 00 Yes [id number] 5mg OLANZapine ; 5 mg PO PRN q12hr for severe agitation NTE 10 mg PRN Olanzapine in 24 hr period RoutineSta rt: 0Ordered: 0Jaron GalanenInt entComment s: NTE 10 mg PRN Olanzapine in 24 hr period NTE 10 mg PRN Olanzapin e in 24 hr period losartan 50 mg oral tablet 2019-07 16:04: 47 No [id number] 1{tab(s )} losartan 50 mg oral tablet; 1 tab(s) orally once a dayQuantit y: 0 Refills: 0Ordered: Uzma GonsalezGeneric Substituti on Allowed amLODIPine 10 mg oral tablet 2019-07 16:04: 30 No [id number] 1{tab(s )} amLODIPine 10 mg oral tablet; 1 tab(s) orally once a dayQuantit y: 0 Refills: 0Ordered: Jhonnykinjalromeo Uzma GMadinaGeneric Substituti on Allowed Albuterol Sulfate 108 (90 Base) MCG/ACT Albuterol Sulfate 108 (90 Base) MCG/ACT No 1{puff_ as_need ed} 6xD Albuterol Sulfate 108 (90 Base) MCG/ACT Losartan Potassium 50 MG Losartan Potassium 50 MG No 1{table t} QD Losartan Potassium 50 MG Atorvastati n Calcium 10 MG Atorvastati n Calcium 10 MG No 1{table t} QD Atorvastat in Calcium 10 MG amLODIPine Besylate 10 MG amLODIPine Besylate 10 MG No 1{table t} QD amLODIPine Besylate 10 MG Aspirin 81 MG Aspirin 81 MG No 1{table t} QD Aspirin 81 MG buPROPion HCl ER (XL) 150 MG buPROPion HCl ER (XL) 150 MG No buPROPion HCl ER (XL) 150 MG risperiDONE 2 MG risperiDONE 2 MG No 1{table t} QD risperiDON E 2 MG Metoprolol Succinate ER 25 MG Metoprolol Succinate ER 25 MG No 1{table t} QD Metoprolol Succinate ER 25 MG Wellbutrin XL 300 MG Wellbutrin XL 300 MG No 1{table t_in_th e_morni ng} QD Wellbutrin XL 300 MG Nystatin [id number] UNIT/ML Nystatin [id number] UNIT/ML No 4{ml} QID Nystatin [id number] UNIT/ML Pantoprazol e Sodium 40 MG Pantoprazol e Sodium 40 MG No 1{table t} QD Pantoprazo le Sodium 40 MG Metoprolol Tartrate 25 MG Metoprolol Tartrate 25 MG No 1{table t_with_ food} BID Metoprolol Tartrate 25 MG Fluconazole 200 MG Fluconazole 200 MG No 1{table t} QD Fluconazol e 200 MG HYDROcodone -Acetaminop hen 10-325 MG HYDROcodone -Acetaminop hen 10-325 MG No HYDROcodon e-Acetamin ophen 10-325 MG Immunizations Ordered Immunization Name Filled Immunization Name Date Status Comments Source Prevnar 20 (PCV20) Prevnar 20 (PCV20) Unknown Completed [facility] Fluarix (IIV4) - SDS - 0.5mL Fluarix (IIV4) - SDS - 0.5mL Unknown Completed [facility] Prevnar 20 (PCV20) Prevnar 20 (PCV20) Unknown Completed [facility] Fluarix (IIV4) - SDS - 0.5mL Fluarix (IIV4) - SDS - 0.5mL Unknown Completed [facility] Prevnar 20 (PCV20) Prevnar 20 (PCV20) Unknown Completed [facility] Fluarix (IIV4) - SDS - 0.5mL Fluarix (IIV4) - SDS - 0.5mL Unknown Completed [facility] Prevnar 20 (PCV20) Prevnar 20 (PCV20) Unknown Completed [facility] Fluarix (IIV4) - SDS - 0.5mL Fluarix (IIV4) - SDS - 0.5mL Unknown Completed [facility] Prevnar 20 (PCV20) Prevnar 20 (PCV20) Unknown Completed [facility] Fluarix (IIV4) - SDS - 0.5mL Fluarix (IIV4) - SDS - 0.5mL Unknown Completed [facility] Prevnar 20 (PCV20) Prevnar 20 (PCV20) Unknown Completed [facility] Fluarix (IIV4) - SDS - 0.5mL Fluarix (IIV4) - SDS - 0.5mL Unknown Completed [facility] Fluarix (IIV3) - SDS - 0.5mL Fluarix (IIV3) - SDS - 0.5mL Unknown Completed [facility] Prevnar 20 (PCV20) Prevnar 20 (PCV20) Unknown Completed [facility] Fluarix (IIV4) - SDS - 0.5mL Fluarix (IIV4) - SDS - 0.5mL Unknown Completed [facility] Prevnar 20 (PCV20) Prevnar 20 (PCV20) Unknown Completed [facility] Fluarix (IIV4) - SDS - 0.5mL Fluarix (IIV4) - SDS - 0.5mL Unknown Completed [facility] Vital Signs Vital Name Observation Time Observation Value Comments S hailey height 2024-04-16 09:00:00 71 [in_i] Commo n [facility] weight 2024-04-16 09:00:00 186 [lb_av] Comm on [facility] temperature 2024-04-16 09:00:00 97.5 [degF] Com mon [facility] bmi 2024-04-16 09:00:00 25.94 kg/m2 Comm on [facility] oximetry 2024-04-16 09:00:00 99 % Commo n [facility] respiratory rate 2024-04-16 09:00:00 16 /min [facility] blood pressure systolic 2024-04-16 09:00:00 126 mm[Hg] [facility] blood pressure diastolic 2024-04-16 09:00:00 80 mm[Hg] [facility] height 2024-04-02 10:00:00 71 [in_i] Commo n [facility] weight 2024-04-02 10:00:00 181.6 [lb_av] Co mmon [facility] temperature 2024-04-02 10:00:00 97.7 [degF] Com [facility] bmi 2024-04-02 10:00:00 25.33 kg/m2 Comm on [facility] oximetry 2024-04-02 10:00:00 99 % Commo n [facility] respiratory rate 2024-04-02 10:00:00 18 /min [facility] blood pressure systolic 2024-04-02 10:00:00 118 mm[Hg] [facility] blood pressure diastolic 2024-04-02 10:00:00 60 mm[Hg] Common [facility] height 2024-01-12 09:40:00 71 [in_i] Commo n [facility] weight 2024-01-12 09:40:00 210.8 [lb_av] Co mmon [facility] temperature 2024-01-12 09:40:00 99.1 [degF] Com mon [facility] bmi 2024-01-12 09:40:00 29.4 kg/m2 Commo n [facility] oximetry 2024-01-12 09:40:00 97 % Commo n [facility] blood pressure systolic 2024-01-12 09:40:00 133 mm[Hg] [facility] blood pressure diastolic 2024-01-12 09:40:00 86 mm[Hg] [facility] height 2023-10-11 10:40:00 71 [in_i] Commo n [facility] weight 2023-10-11 10:40:00 199 [lb_av] Comm on [facility] temperature 2023-10-11 10:40:00 98.8 [degF] Com [facility] bmi 2023-10-11 10:40:00 27.75 kg/m2 Comm on [facility] oximetry 2023-10-11 10:40:00 95 % Commo n [facility] respiratory rate 2023-10-11 10:40:00 16 /min Common [facility] blood pressure systolic 2023-10-11 10:40:00 126 mm[Hg] [facility] blood pressure diastolic 2023-10-11 10:40:00 84 mm[Hg] [facility] height 2023-09-12 14:00:00 71 [in_i] Commo n [facility] weight 2023-09-12 14:00:00 206.2 [lb_av] Co mmon [facility] bmi 2023-09-12 14:00:00 28.76 kg/m2 Comm on [facility] oximetry 2023-09-12 14:00:00 95 % Commo n [facility] respiratory rate 2023-09-12 14:00:00 16 /min [facility] blood pressure systolic 2023-09-12 14:00:00 133 mm[Hg] [facility] blood pressure diastolic 2023-09-12 14:00:00 88 mm[Hg] [facility] Procedures Procedure Date / Time Performed Performing Clinicia n Source REFERRAL- REQUEST/RESPONSE 2023-01-20 05:01:00 Doctor Unassigned, [place] [facility] Plan of Care Planned Activity Planned Date [...] End Date/Time Encounter Type Admission Type Attending Clinicians Care Facility Care Department Encounter ID Source 2024-08-16 08:21:01 Outpatient JESUS ZENG [facility] [id number] [facility] 2024-08-12 13:37:00 Outpatient Jesus Zeng [facility] [id number] [facility] 2024-07-17 09:09:02 Outpatient Jesus Zeng [facility] [id number] [facility] 2024-04-12 08:43:00 Outpatient Jesus Zeng [facility] [id number] [facility] 2024-01-09 10:09:01 Outpatient Jesus Zeng [facility] [id number] [facility] 2023-09-12 11:07:02 Outpatient Jesus Zeng [facility] [id number] [facility] 2023-08-28 14:13:00 Outpatient Jesus Zeng [facility] [id number] [facility] 2023-08-22 10:16:01 Outpatient Jesus Zeng [facility] [id number] [facility] 2023-08-09 08:48:01 Outpatient Jesus Zeng [facility] [id number] [facility] 2023-07-11 08:24:00 Outpatient Jesus Zeng [facility] [id number] [facility] 2024-06-22 00:00:00 2024-06-22 00:00:00 (TEL) [facility] [id number] [facility] 2024-04-18 00:00:00 2024-04-18 00:00:00 (TEL) [facility] [id number] [facility] 2024-04-16 00:00:00 2024-04-16 00:00:00 OFFICE VISIT ESTAB PT LEVEL 4 [facility] [id number] [facility] 2024-04-10 00:00:00 2024-04-10 00:00:00 (TEL) [facility] ST[facility] [id number] [facility] 2024-04-04 00:00:00 2024-04-04 00:00:00 (TEL) [facility]C [facility] [id number] [facility] 2024-04-03 00:00:00 2024-04-03 00:00:00 (TEL) [facility] [id number] [facility] 2024-04-02 00:00:00 2024-04-02 00:00:00 (HOSP F/U) Hospital Follow Up [facility] [id number] [facility] 2024-02-26 00:00:00 2024-02-26 00:00:00 (TEL) [facility] ST[facility] [id number] [facility] 2024-01-12 00:00:00 2024-01-12 00:00:00 OFFICE VISIT ESTAB PT LEVEL 4 [facility] ST[facility] [id number] [facility] 2023-11-15 00:00:00 2023-11-15 00:00:00 (TEL) [facility]LMLC STL[facility] [id number] [facility] 2023-10-30 13:00:00 2023-10-30 13:00:00 Outpatient DYLAN ZELAYA [facility] [id number] [facility] 2023-10-27 00:00:00 2023-10-27 00:00:00 Letter (Out) Virgil Berrios [facility] [id number] [facility] 2023-10-11 00:00:00 2023-10-11 00:00:00 OFFICE VISIT ESTAB PT LEVEL 4 [facility] [id number] [facility] 2023-10-11 00:00:00 2023-10-11 00:00:00 (TEL) [facility]C STL[facility] [id number] [facility] 2023-10-05 00:00:00 2023-10-05 00:00:00 (TEL) [facility]C STLC [id number] [facility] 2023-09-22 00:00:00 2023-09-22 00:00:00 (TEL) STLC STLC [id number] [facility] 2023-09-12 00:00:00 2023-09-12 00:00:00 INIT ANNUAL [facility]IS[facility] [id number] [facility] 2023-09-12 00:00:00 2023-09-12 00:00:00 OFFICE VISIT ESTAB PT LEVEL 4 [facility] [id number] [facility] 2023-07-19 15:30:00 2023-07-19 16:30:00 D2Me Cynthia Ortiz [id number] [facility] 2023-06-26 13:00:00 2023-06-26 13:00:00 Outpatient DYLAN ZELAYA [facility] [id number] [facility] 2023-05-01 08:30:00 2023-05-01 08:30:00 Outpatient LAMAR KEITH YU [facility] [id number] [facility] 2023-02-23 14:52:04 2023-02-23 14:52:04 Outpatient SFA SFA [id number] Obey Dow 2023-01-20 00:00:00 2023-01-20 00:00:00 Orders Only Doctor Unassigned, [place] [facility] 1.2.840.114 350.1.13.10 4.2.7.2.686 [id number] [id number] [facility] 2023-01-19 15:28:18 2023-01-19 15:28:18 Outpatient SFA SFA [id number] Obey Dow 2023-01-02 10:13:37 2023-01-02 10:13:37 Outpatient [facility] [id number] Obey Dow 2022-12-19 08:37:40 2022-12-19 08:37:40 Outpatient [facility] [id number] Obey Dow 2022-09-10 13:52:02 2022-09-10 13:52:02 Outpatient [facility] [id number] Obey Dow 2022-06-16 09:14:18 2022-06-16 09:14:18 Outpatient [facility] [id number] Obey Dow 2021-10-18 00:00:00 2021-10-18 00:00:00 Patient Outreach Gisselle Das [facility] 1..840.114 350.1.13.10 4.2.7.2.686 [id number] [facility] 2021-10-12 10:30:00 2021-10-12 11:16:30 Office Visit Leslie Her [facility] 1..840.114 350.1.13.10 4.2.7.2.686 [id number] [facility] 2021-10-12 10:30:00 2021-10-12 11:16:30 Outpatient R LESLIE HER [facility] [id number] [facility] 2021-10-12 10:30:00 2021-10-12 10:30:00 Outpatient R LESLIE HER [facility] [id number] [facility] 2021-10-12 00:00:00 2021-10-12 00:00:00 Orders Only Doctor Unassigned, [place] [facility] 1..840.114 350.1.13.10 4.2.7.2.686 [id number] [id number] [facility] 2021-10-09 20:55:00 2021-10-09 23:20:00 Emergency X ZAKIYA KEARNEY [facility] ERT [id number] [facility] 2021-10-09 20:55:00 2021-10-09 23:20:00 Emergency Zakiya Kearney [facility] 1.2.840.114 350.1.13.10 4.2.7.2.686 [id number] [facility] 2021-10-09 20:55:00 2021-10-09 23:20:00 Emergency X ZAKIYA KEARNEY [facility] ERT [id number] [facility] 2021-10-09 00:00:00 2021-10-09 00:00:00 Nurse Triage Jackeline Shahid [facility] 1.2840.114 350.1.13.10 4.2.7.2.686 [id number] [facility] 2021-10-09 00:00:00 2021-10-09 00:00:00 Orders Only Doctor Unassigned, [place] [facility] 1.2.840.114 350.1.13.10 4.2.7.2.686 [id number] [facility] 2021-10-06 00:00:00 2021-10-06 00:00:00 Transition of Care Felecia Chiu 1.2.840.114 350.1.13.10 4.2.7.2.686 [id number] [facility] 2021-10-05 00:00:00 2021-10-05 00:00:00 Transition of Care Felecia Chiu 1.2.840.114 350.1.13.10 4.2.7.2.686 [id number] [facility] 2021-09-25 05:22:00 2021-10-04 18:00:00 Inpatient X OLSEN-SIRV ENT, LAUREN [facility] SPL [id number] [facility] 2021-09-25 05:22:00 2021-10-04 18:00:00 Hospital Encounter Olsen-Sirv ent, Lauren MARTINEZ [facility] 1.2840.114 350.1.13.10 4.2.7.2.686 [id number] [facility] 2021-09-24 22:45:00 2021-09-25 05:18:00 Emergency X ZAKIYA KEARNEY [facility] ERT [id number] [facility] 2021-09-24 22:45:00 2021-09-25 05:18:00 Emergency Delores Kearneybakari S [facility] 1.2840.114 350.1.13.10 4.2.7.2.686 [id number] [facility] 2021-09-24 00:00:00 2021-09-24 00:00:00 Orders Only Doctor Unassigned, [place] [facility] 1.2840.114 350.1.13.10 4.2.7.2.686 [id number] [facility] 2021-03-12 00:00:00 2021-03-12 00:00:00 Orders Only Doctor Unassigned, [place] [facility] 1.2840.114 350.1.13.10 4.2.7.2.686 [id number] [id number] [facility] 2021-03-11 00:00:00 2021-03-11 00:00:00 Patient Outreach Gisselle Das 1.2840.114 350.1.13.10 4.2.7.2.686 [id number] [facility] 2021-01-12 00:00:00 2021-01-12 00:00:00 Orders Only Doctor Unassigned, [place] [facility] 1.2840.114 350.1.13.10 4.2.7.2.686 [id number] [facility] 2020-11-18 15:11:00 2020-11-19 22:42:00 Inpatient X TERESA [facility]MAN [facility] [id number] [facility] 2020-11-18 14:56:00 2020-11-18 14:56:00 Emergency X [facility] E[facility] [id number] [facility] 2020-11-14 19:30:00 2020-11-16 17:56:00 Inpatient X KURT ROJAS [facility] [id number] [facility] 2020-11-14 19:28:00 2020-11-14 19:28:00 Emergency X [facility] E[facility] [id number] [facility] 2020-10-02 15:36:00 2020-10-02 15:36:00 Emergency X FLIP AVILA [facility] ERT [id number] [facility] 2020-04-22 18:45:00 2020-04-28 12:07:00 Inpatient Willy Knapp 1 [id number] [facility] Results Test Description Test Time Test Comments Results Result Co mments Source NO URINE PROVIDED:2024-04-09 00:00:00* Test Item Value Reference Range Interpretation Comme nts HEMOGLOBIN A1c (test code = 4548-4) 5.2 % See_Comment [Automated [email or web address]] The system which generated this result transmitted reference range: 4.2-5.6 %. The reference range was not used to interpret this result as normal/abnormal. CALC LDL CHOL (test code = 29277-0) 79 MG/DL See_Comment [Automated [employer]] The system which generated this result transmitted reference range: <100 MG/DL. The reference range was not used to interpret this result as normal/abnormal. CHOLESTEROL (test code = 2093-3) 131 MG/DL See_Comment [Automated [email or web address]] The system which generated this result transmitted reference range: <200 MG/DL. The reference range was not used to interpret this result as normal/abnormal. HDL CHOLESTEROL (test code = 2085-9) 29 MG/DL See_Comment L [Automated messa ge] The system which generated this result transmitted reference range: >39 MG/DL. The reference range was not used to interpret this result as normal/abnormal. RISK RATIO LDL/HDL (test code = 23506-5) 2.72 RATIO See_Comment [Automated message] The system which generated this result transmitted reference range: <3.55 RATIO. The reference range was not used to interpret this result as normal/abnormal. TRIGLYCERIDES (test code = 2571-8) 129 MG/DL See_Comment [Automated messa ge] The system which generated this result transmitted reference range: <150 MG/DL. The reference range was not used to interpret this result as normal/abnormal. BASOPHILS (test code = 28319-4) 0.3 % EOSINOPHILS (test code = 39754-9) 4.0 % HEMATOCRIT (test code = 90103-3) 34.1 % See_Comment L [Automated messa ge] The system which generated this result transmitted reference range: 40.0-51.0 %. The reference range was not used to interpret this result as normal/abnormal. HEMOGLOBIN (test code = 718-7) 10.4 G/DL See_Comment L [Automated messa ge] The system which generated this result transmitted reference range: 13.5-17.0 G/DL. The reference range was not used to interpret this result as normal/abnormal. LYMPHOCYTES (test code = 01903-2) 27.2 % MCH (test code = 08666-7) 27.4 PG See_Comment [Automated messa ge] The system which generated this result transmitted reference range: 25.0-33.0 PG. The reference range was not used to interpret this result as normal/abnormal. MCHC (test code = 55833-2) 30.5 G/DL See_Comment L [Automated messa ge] The system which generated this result transmitted reference range: 31.0-36.0 G/DL. The reference range was not used to interpret this result as normal/abnormal. MCV (test code = 89095-2) 90.0 fL See_Comment [Automated messa ge] The system which generated this result transmitted reference range: 80.0-99.0 fL. The reference range was not used to interpret this result as normal/abnormal. MONOCYTES (test code = 52552-0) 8.6 % NEUTROPHILS (test code = 67666-1) 59.6 % NUCLEATED RBCS (test code = 11356-5) 0.0 /100 WBC'S See_Comment [Automated message] The system which generated this result transmitted reference range: 0.0 /100 WBC'S. The reference range was not used to interpret this result as normal/abnormal. PLATELET COUNT (test code = 22808-1) 406 K/UL See_Comment H [Automated messa ge] The system which generated this result transmitted reference range: 130-400 K/UL. The reference range was not used to interpret this result as normal/abnormal. RBC (test code = 95937-4) 3.79 M/UL See_Comment L [Automated messa ge] The system which generated this result transmitted reference range: 4.50-6.10 M/UL. The reference range was not used to interpret this result as normal/abnormal. RDW (test code = 89326-6) 14.3 % See_Comment [Automated [employer]] The system which generated this result transmitted reference range: 11.5-15.0 %. The reference range was not used to interpret this result as normal/abnormal. WBC (test code = 51756-8) 9.2 K/UL See_Comment [Automated messa ge] The system which generated this result transmitted reference range: 3.5-11.0 K/UL. The reference range was not used to interpret this result as normal/abnormal. ALBUMIN (test code = 1751-7) 3.7 G/DL See_Comment [Automated [employer]] The system which generated this result transmitted reference range: 3.5-5.2 G/DL. The reference range was not used to interpret this result as normal/abnormal. ALKALINE PHOSPHATASE (test code = 6768-6) 76 U/L See_Comment [Automated message] The system which generated this result transmitted reference range: 40-123 U/L. The reference range was not used to interpret this result as normal/abnormal. BILIRUBIN, TOTAL (test code = 1975-2) <0.2 MG/DL See_Comment [Automated messa ge] The system which generated this result transmitted reference range: <=1.2 MG/DL. The reference range was not used to interpret this result as normal/abnormal. BUN (test code = 3094-0) 10 MG/DL See_Comment [Automated messa ge] The system which generated this result transmitted reference range: 8-23 MG/DL. The reference range was not used to interpret this result as normal/abnormal. CALCIUM (test code = 99956-9) 9.1 MG/DL See_Comment [Automated messa ge] The system which generated this result transmitted reference range: 8.5-10.5 MG/DL. The reference range was not used to interpret this result as normal/abnormal. CALC A/G RATIO (test code = 1759-0) 1.5 RATIO See_Comment [Automated messa ge] The system which generated this result transmitted reference range: 1.0-2.6 RATIO. The reference range was not used to interpret this result as normal/abnormal. CALC BUN/CREAT (test code = 3097-3) 8 RATIO See_Comment [Automated messa ge] The system which generated this result transmitted reference range: 6-28 RATIO. The reference range was not used to interpret this result as normal/abnormal. CALC GLOBULIN (test code = 15978-2) 2.4 G/DL See_Comment [Automated messa ge] The system which generated this result transmitted reference range: 1.9-3.7 G/DL. The reference range was not used to interpret this result as normal/abnormal. CARBON DIOXIDE (test code = 1963-8) 24 MEQ/L See_Comment [Automated messa ge] The system which generated this result transmitted reference range: 19-31 MEQ/L. The reference range was not used to interpret this result as normal/abnormal. CHLORIDE (test code = 2075-0) 105 MEQ/L See_Comment [Automated messa ge] The system which generated this result transmitted reference range: 95-107 MEQ/L. The reference range was not used to interpret this result as normal/abnormal. CREATININE (test code = 2160-0) 1.20 MG/DL See_Comment [Automated messa ge] The system which generated this result transmitted reference range: 0.80-1.40 MG/DL. The reference range was not used to interpret this result as normal/abnormal. eGFR (2020 CKD-EPI) (test code = 06010-6) 68 ML/MIN/1.73 See_Comment [Automated message] The system which generated this result transmitted reference range: >60 ML/MIN/1.73. The reference range was not used to interpret this result as normal/abnormal. GLUCOSE (test code = 1558-6) 95 MG/DL See_Comment [Automated messa ge] The system which generated this result transmitted reference range: 70-99 MG/DL. The reference range was not used to interpret this result as normal/abnormal. POTASSIUM (test code = 2823-3) 4.4 MEQ/L See_Comment [Automated messa ge] The system which generated this result transmitted reference range: 3.5-5.4 MEQ/L. The reference range was not used to interpret this result as normal/abnormal. PROTEIN, TOTAL (test code = 2885-2) 6.1 G/DL See_Comment [Automated messa ge] The system which generated this result transmitted reference range: 6.1-8.3 G/DL. The reference range was not used to interpret this result as normal/abnormal. AST (test code = 1920-8) 23 U/L See_Comment [Automated messa ge] The system which generated this result transmitted reference range: 9-50 U/L. The reference range was not used to interpret this result as normal/abnormal. ALT (test code = 1742-6) 18 U/L See_Comment [Automated messa ge] The system which generated this result transmitted reference range: 5-50 U/L. The reference range was not used to interpret this result as normal/abnormal. SODIUM (test code = 2951-2) 142 MEQ/L See_Comment [Automated messa ge] The system which generated this result transmitted reference range: 133-146 MEQ/L. The reference range was not used to interpret this result as normal/abnormal. COMPREHENSIVE METABOLIC [id number] 02:59:52* Test Item Value Reference Range Interpretation Comme nts GLUCOSE (test code = 2217) 73 MG/DL 70-99 BUN (test code = 2208) 19 MG/DL 8-23 CREATININE (test code = 2214) 1.27 MG/DL 0.80-1.40 eGFR (2020 CKD-EPI) (test code = 70482) 64 ML/MIN/1.73 >60 CALC BUN/CREAT (test code = 2235) 15 RATIO 6-28 SODIUM (test code = 2231) 143 MEQ/L 133-146 POTASSIUM (test code = 2227) 4.2 MEQ/L 3.5-5.4 CHLORIDE (test code = 2215) 104 MEQ/L 95-107 CARBON DIOXIDE (test code = 2205) 23 MEQ/L 19-31 CALCIUM (test code = 2208) 9.7 MG/DL 8.5-10.5 PROTEIN, TOTAL (test code = 2228) 7.7 G/DL 6.1-8.3 ALBUMIN (test code = 2200) 4.8 G/DL 3.5-5.2 CALC GLOBULIN (test code = 2240) 2.9 G/DL 1.9-3.7 CALC A/G RATIO (test code = 2233) 1.7 RATIO 1.0-2.6 BILIRUBIN, TOTAL (test code = 2206) <0.2 MG/DL See_Comment [Automated me ssage] The system which generated this result transmitted reference range: <=1.2. The reference range was not used to interpret this result as normal/abnormal. ALKALINE PHOSPHATASE (test code = 2203) 136 U/L 40-123 H AST (test code = 2217) 16 U/L 9-50 ALT (test code = 221) 14 U/L 5-50 LIPID [id number] 02:59:52* Test Item Value Reference Range Interpretation Comme nts CHOLESTEROL (test code = 2210) 135 MG/DL <200 TRIGLYCERIDES (test code = 2232) 199 MG/DL <150 H HDL CHOLESTEROL (test code = 2219) 34 MG/DL >39 L CALC LDL CHOL (test code = 2236) 71 MG/DL <100 NOTE: CALCULATED LDL IS BASED ON AR-CLOUD METHOD WHICHINCLUDES ADJUSTABLE TRIGLYCERIDE:VLDL CHOLESTEROL RATIO.THIS FACTOR VARIES BY MEASURED TRIGLYCERIDE AND NON-HDLCHOLESTEROL CONCENTRATIONS WITH INCREASED CALCULATED LDL SEENIN HIGHER TRIGLYCERIDE OR LOWER NON-HDL SPECIMENS. FOR MOREINFORMATION, SEE CLIENT ANNOUNCEMENT AT [email or web address] App /CalcLDL-C RISK RATIO LDL/HDL (test code = 223) 2.09 RATIO <3.55 UNLESS OTHERW ISE INDICATED, ALL TESTING PERFORMED ATCLINICAL PATHOLOGY [employer] [address] [place] [address], [place] [address] [employer] ERADICATOR: JARRED FRIED M.D. CLIA NUMBER [id number] [place]. [id number] Urine Drug Screen [id number] 18:04:00* Test Item Value Reference Range Interpretation Comments Amphetamine Methamphetmine 545142 (test code = AmphetamineMethamphe ondir307809) Negative Amphetamine test includes Amphetamine and Methamphetamine . Barbiturate (548967) (test code = Barbiturate(305220)) Negative Benzodiazepines (597681) (test code = Benzodiazepines(7148 32)) Negative Cocaine Metabolite (608564) (test code = CocaineMetabolite(71 4857)) Negative Phencyclidine (018372) (test code = Phencyclidine(547778 )) Negative Drug Screen Comment (test code = DrugScreenComment) NOTE : .This analysis is performed by immunoassay. Positivefindings are unconfirmed analytical test results; ifresults do not support expected clinical finding,confirmation by an alternate methodology is recommended.Patient metabolic variables, specific drug chemistry, andspecimen characteristics can affect test outcome.Technical consultation is available [email or web address], or call toll free [phone]. Opiates (126220) (test code = Opiates(554549)) Negative Opiate test includes Codeine and Morphine only. Cannabinoid (133658) (test code = Cannabinoid(416406)) Positive Comprehensive Metabolic [id number] 14:28:00* Test Item Value Reference Range Interpretation Comme nts Glucose,Serum (test code = Glucose,Serum) 87 mg/dL BUN (test code = BUN) 15 mg/dL Creatinine,Serum (test code = Creatinine,Serum) 0.97 mg/dL eGFR If NonAfrican Am (07893 1) (test code = eGFRIfNonAfricanAm(350359)) 84 mL/min/1.73 eGFR If Am (474037) (test code = eGFRIfAfricanAm(478405)) 98 mL/min/1.73 BUN/Creat Ratio (test code = [...] ALT (test code = ALT) 15 {IU/L} [id number] 14:28:00* Test Item Value Reference Range Interpretation Comme nts TSH (442230) (test code = TSH(640873)) 1.950 {uIU/mL} Lipid Panel with LDL/HDL [id number] 14:28:00* Test Item Value Reference Range Interpretation Comme [facility] zzzCholesterol, Total (test code = zzzCholesterol,Total) 171 mg/dL Triglycerides (test code = Triglycerides) 186 mg/dL zzzHDL Cholesterol (test code = zzzHDLCholesterol) 33 mg/dL VLDL Cholesterol Calculated (test code = VLDLCholesterolCalculate d) 33 mg/dL LDL Cholesterol MARLA (NIH) (test code = LDLCholesterolCAL(NIH)) 105 mg/dL LDL/HDL Ratio (200541) (test code = LDL/HDLRatio(593063)) 3.2 {ratio} . LDL/HDL Ratio Men Women 1/2 Avg.Risk 1.0 1.5 Avg.Risk 3.6 3.2 2X Avg.Risk 6.2 5.0 3X Avg.Risk 8.0 6.1 CBC w/ Diff w/ [id number] 11:45:00* Test Item Value Reference Range Interpretation Comme nts WBC Count (test code = WBCCount) 9.4 [...]
[2024-08-23] MEDS ORDERED: FAMOTIDINE 20 MG/2 ML VIAL IV ONE (09:30)
[2024-08-23] MEDS ORDERED: ASPIRIN 81 MG CHEWABLE TABLET ONE (09:30)
[2024-08-23] MEDS ORDERED: NA CHLORIDE 0.9% 500 ML ONE (09:30)
[2024-08-23 09:52] LABS: Absolute Basophils 0.1 K/uL (0-0.5); Absolute Eosinophils 0.3 K/uL (0-0.5); Absolute Lymphocytes (CBC) 2.4 K/uL (0.7-4.9); Absolute Monocytes 0.7 K/uL (0.1-1.3); Absolute Neutrophil 4.8 K/uL (1.8-8.0); Basophils % 0.8 % (0-1.3); Eosinophils % 3.3 % (0-4.4); Hematocrit 42.6 % (39.6-49.0); Hemoglobin 13.8 g/dL (13.6-17.9); MCH 27.9 pg (27.0-35.0); MCHC 32.4 g/dL (32.0-36.0); MCV 86.1 fL (80-100); MPV 8.1 fL (7.6-11.3); Monocytes % 8.4 % (3.3-12.3); Neutrophils % 58.5 % (41.7-73.7); Nucleated Red Blood Cells % 0.1 % (0-0); Platelets 304 thou/uL (152-406); RBC Red Blood Cell Count 4.95 M/uL (4.33-5.43); Red Cell Distribution Width 17.2 % (12.1-15.2)
[2024-08-23 09:59] LABS: PT Prothrombin Time 11.2 SECONDS (9.4-12.5); Protime INR 1.07
[2024-08-23 10:15] LABS: ALT/SGPT 19 U/L (16-61); AST/SGOT 18 U/L (15-37); Albumin 3.4 g/dL (3.4-5.0); Albumin/Globulin Ratio 0.9 (1.1-1.8); Alkaline Phosphatase 99 U/L (45-117); Anion Gap 8.2 mEq/L (5.0-15.0); BUN Blood Urea Nitrogen 14 mg/dL (7-18); Bicarbonate 29 mEq/L (21-32); Bilirubin Total 0.2 mg/dL (0.2-1.0); Globulin 3.7 g/dL (2.3-3.5); Glomerular Filtration Rate 77 ml/min (=/>90); Glucose Level 96 mg/dL (74-106); Lipase 42 U/L (13-75); NT PRO-BNP 209 pg/mL (<125); Potassium 4.2 mEq/L (3.5-5.1); Protein, Total 7.1 g/dL (6.4-8.2); Sodium Level 138 mEq/L (136-145); Troponin High Sensitivity 4.5 pg/mL (<58.9)
[2024-08-23] MEDS ORDERED: METOPROLOL TAR 25 MG TAB ONE (10:23)
[2024-08-23] MEDS ORDERED: lisinopriL 20 MG TAB ONE (10:23)
[2024-08-23 10:24] LABS: Bilirubin Direct < 0.2 mg/dL (0-0.2)
[2024-08-23] MEDS ORDERED: MORPHINE 4 MG/ML SYR ONE (10:24)
--- NOTE | 2024-08-23 11:15 | EDPHYS ---
Physician Documentation [facility] Name: Miguelangel Reaves Jr Age: 64 yrs Sex: Male : 1960 Arrival Date: 08/23/2024 Time: 08:58 Bed 15 Private MD: YENNI Physician Kayden Roland HPI: 08/23 11:08 This 64 yrs old Male presents to ER via Ambulatory with complaints of Chest annemarie Pain. 11:08 The patient or guardian reports chest pain that is located primarily in the substernal annemarie area. Onset: 1 day(s) ago. The pain does not radiate. Associated signs and symptoms: The patient has no apparent associated signs or symptoms. The chest pain is described as aching, a heaviness, sharp. Modifying factors: The symptoms are alleviated by antacids, the symptoms are aggravated by exertion, movement. Severity of pain: At its worst the pain was moderate in the emergency department the pain is unchanged. The patient has experienced similar episodes in the past, several times. Historical: - Allergies: 09:08 PENICILLINS; ss - PMHx: 09:08 Hypercholesterolemia; Hypertensive disorder; Myocardial infarction; ss - PSHx: 09:08 left hand; Right Ankle; laminectomy; ss - Immunization history:: Client reports receiving the 2nd dose of the Covid vaccine. - Infectious Disease History:: Denies. - Social history:: Smoking status: Patient reports the use of cigarette tobacco products, smokes one-half pack cigarettes per day. - Family history:: not pertinent. ROS: 11:08 Constitutional: Negative for fever, chills, and weight loss, Eyes: Negative for injury, annemarie pain, redness, and discharge, ENT: Negative for injury, pain, and discharge, Neck: Negative for injury, pain, and swelling, Respiratory: Negative for shortness of breath, cough, wheezing, and pleuritic chest pain, Abdomen/GI: Negative for abdominal pain, nausea, vomiting, diarrhea, and constipation, Back: Negative for injury and pain, : Negative for injury, bleeding, discharge, and swelling, MS/Extremity: Negative for injury and deformity, Skin: Negative for injury, rash, and discoloration, Neuro: Negative for headache, weakness, numbness, tingling, and seizure, Psych: Negative for depression, anxiety, suicide ideation, homicidal ideation, and hallucinations, Allergy/Immunology: Negative for hives, rash, and allergies, Endocrine: Negative for neck swelling, polydipsia, polyuria, polyphagia, and marked weight changes, Hematologic/Lymphatic: Negative for swollen nodes, abnormal bleeding, and unusual bruising, 11:08 Cardiovascular: Positive for chest pain, of the chest, Exam: 11:08 Constitutional: This is a well developed, well nourished patient who is awake, alert, annemarie and in no acute distress. Head/Face: Normocephalic, atraumatic. Eyes: Pupils equal round and reactive to light, extra-ocular motions intact. Lids and lashes normal. Conjunctiva and sclera are non-icteric and not injected. Cornea within normal limits. Periorbital areas with no swelling, redness, or edema. ENT: Nares patent. No nasal discharge, no septal abnormalities noted. Tympanic membranes are normal and external auditory canals are clear. Oropharynx with no redness, swelling, or masses, exudates, or evidence of obstruction, uvula midline. Mucous membranes moist. Neck: Trachea midline, no thyromegaly or masses palpated, and no cervical lymphadenopathy. Supple, full range of motion without nuchal rigidity, or vertebral point tenderness. No Meningismus. Chest/axilla: Normal chest wall appearance and motion. Nontender with no deformity. No lesions are appreciated. Cardiovascular: Regular rate and rhythm with a normal S1 and S2. No gallops, murmurs, or rubs. Normal PMI, no JVD. No pulse deficits. Respiratory: Lungs have equal breath sounds bilaterally, clear to auscultation and percussion. No rales, rhonchi or wheezes noted. No increased work of breathing, no retractions or nasal flaring. Abdomen/GI: Soft, non-tender, with normal bowel sounds. No distension or tympany. No guarding or rebound. No evidence of tenderness throughout. Back: No spinal tenderness. No costovertebral tenderness. Full range of motion. Skin: Warm, dry with normal turgor. Normal color with no rashes, no lesions, and no evidence of cellulitis. MS/ Extremity: Pulses equal, no cyanosis. Neurovascular intact. Full, normal range of motion., bilateral aka Neuro: Awake and alert, GCS 15, oriented to person, place, time, and situation. Cranial nerves II-XII grossly intact. Motor strength 5/5 in all extremities. Sensory grossly intact. Cerebellar exam normal. Normal gait. Psych: Awake, alert, with orientation to person, place and time. Behavior, mood, and affect are within normal limits. 11:08 ECG was reviewed by the Attending Physician. Vital Signs: 09:06 BP 155 / 83; Pulse 66; Resp 17; Temp 97.6(O); Pulse Ox 100% ; Weight 83.91 kg; Height 5 ss ft. 10 in. ; Pain 3/10; 09:33 BP 158 / 103; Pulse 63; Resp 18; Pulse Ox 98% ; db 10:27 BP 161 / 103; Pulse 60; Resp 16; Pulse Ox 97% on R/A; db 10:35 BP 132 / 102; Pulse 61; Resp 18; Pulse Ox 100% on R/A; db 11:30 BP 149 / 100; Pulse 56; Resp 16; Pulse Ox 100% ; db 12:00 BP 114 / 61; Pulse 64; Resp 20; Pulse Ox 100% ; db 13:00 BP 149 / 92; Pulse 54; Resp 14; Pulse Ox 99% ; ss 09:06 Body Mass Index 26.54 (83.91 kg, 177.8 cm) ss 09:06 Pain Scale: Adult ss MDM: 09:08 Medical Screening Exam initiated annemarie 11:10 HEART Score: History: Moderately Suspicious (1), ECG: Normal (0), Age: > 45 and < 65 annemarie years (1), Risk Factors: > or = 3 Risk factors for atherosclerotic disease (2), [Hypercholesterolemia] [Hypertension] [Active Smoker] [+ Family HX] Troponin: < or = 1 x Normal Limit (0), Total Score = 4. The patient was given aspirin in the Emergency Department. MAYI Risk Score: 1 - Three or more CAD risk factors, 1- Known CAD, 1 - Recent [<24hrs] Severe Angina, TOTAL SCORE = 3. Data reviewed: vital signs, nurses notes, lab test result(s), EKG, radiologic studies, plain films. Consideration of Admission/Observation Patient was admitted/placed on observation. Escalation of care including admission/observation considered. I considered the following discharge prescriptions or medication management in the emergency department Medications were administered in the Emergency Department. See MAR. Independent interpretation of the following test(s) in the Emergency Department EKG: See my EKG interpretation above. Test considered but Not performed: Ultrasound NO 2 D ECHO. 08/23 09:12 Order name: Basic Metabolic Panel; Complete Time: 11:06 08/23 09:12 Order name: CBC with Diff; Complete Time: 11:06 08/23 09:12 Order name: LFT's; Complete Time: 11:06 08/23 09:12 Order name: Magnesium; Complete Time: 11:06 08/23 09:12 Order name: NT PRO-BNP; Complete Time: 11:06 08/23 09:12 Order name: PT-INR; Complete Time: 11:06 08/23 09:12 Order name: Troponin HS; Complete Time: 11:06 08/23 09:12 Order name: Lipase; Complete Time: 11:06 annemarie 08/23 09:12 Order name: Urinalysis w/ reflexes [facility] 08/23 11:08 Order name: Lipid Profile [facility] 08/23 12:57 Order name: Basic Metabolic Panel ED[facility] 08/23 12:57 Order name: Basic Metabolic Panel [facility] 08/23 12:57 Order name: CBC with Automated Diff [facility] 08/23 12:57 Order name: CBC with Automated Diff [facility] 08/23 12:57 Order name: Troponin High Sensitivity [facility] 08/23 12:57 Order name: Troponin High Sensitivity [facility] 08/23 12:57 Order name: Troponin High Sensitivity [facility] 08/23 09:12 Order name: XRAY Chest (1 view) [facility] 08/23 12:57 Order name: EKG Electrocardiogram [facility] 08/23 12:57 Order name: EKG Electrocardiogram [facility] 08/23 09:12 Order name: Cardiac monitoring; Complete Time: 09:45 annemarie 08/23 09:12 Order name: EKG - Nurse/Tech; Complete Time: 09:17 08/23 09:12 Order name: IV Saline Lock; Complete Time: 09:45 08/23 09:12 Order name: Labs collected and sent; Complete Time: 09:45 annemarie 08/23 09:12 Order name: O2 Per Protocol; Complete Time: 09:45 08/23 09:12 Order name: O2 Sat Monitoring; Complete Time: 09:45 [facility] EC:08 Rate is 65 beats/min. Rhythm is regular. QRS [place] is Normal. MD interval is normal. QRS annemarie interval is normal. QT interval is normal. No Q waves. T waves are Normal. No ST changes noted. Clinical impression: Normal ECG and No evidence of ischemia. Interpreted by me. Reviewed by me. Administered Medications: 09:35 Drug: Aspirin PO Chewable Tablet 81 mg PO once Route: PO; db 13:00 Follow up: Response: No adverse reaction ss 09:35 Drug: NS 0.9% IV 500 ml 500 ml IV at 1 bolus once; to be given as a bolus over 30 db minutes Volume: 500 ml; Route: IV; Rate: 1 bolus; Site: left antecubital; 13:47 Follow up: Response: No adverse reaction; IV Status: Completed infusion; IV Intake: ss 500ml 09:35 Drug: Famotidine IVP 20 mg IVP once; dilute with 10 mL 0.9% NaCl; give over 2 minutes db Route: IVP; Site: left antecubital; 13:00 Follow up: Response: No adverse reaction ss 10:27 Drug: Lisinopril PO 20 mg PO once Route: PO; db 13:00 Follow up: Response: No adverse reaction ss 10:27 Drug: Metoprolol PO 25 mg PO once Route: PO; db 13:00 Follow up: Response: No adverse reaction ss 10:28 Drug: morphine IVP or IV 2 mg IVP once over 4 mins Route: IVP; Infused Over: 4 mins; db Site: left antecubital; 13:00 Follow up: Response: No adverse reaction ss 10:31 Drug: morphine IVP or IV 2 mg IVP once over 4 mins Route: IVP; Infused Over: 4 mins; db Site: left antecubital; 13:00 Follow up: Response: No adverse reaction ss 11:35 Drug: Atorvastatin PO 20 mg PO once Route: PO; db 13:00 Follow up: Response: No adverse reaction ss 11:36 Drug: Enoxaparin Sub-Q 1 mg/kg Sub-Q once Route: Sub-Q; Site: right lower abdomen; db 13:00 Follow up: Response: No adverse reaction ss Disposition Summary: 08/23/24 11:15 Hospitalization Ordered Notes: Hospitalization Status: Observation annemarie Provider: Darrick Marie cha Location: Telemetry/MedSurg (observation) annemarie Condition: Stable annemarie Problem: new annemarie Symptoms: have improved annemarie Bed/Room Type: Standard annemarie Room Assignment: annemarie Diagnosis - Chest pain, unspecified annemarie - Tobacco abuse counseling annemarie - Tobacco use annemarie - Essential (primary) hypertension annemarie Forms: - Medication Reconciliation Form annemarie - SBAR form annemarie - Leadership Thank You Letter [facility] Signatures: Dispatcher [employer] Kayden Kramer MD MD cha Blanchard, Shelby, RN RN ss Beulah Thayer RN RN db Corrections: (The following items were deleted from the chart) 09:08 09:08 PMHx: heart attack; [facility]
--- NOTE | 2024-08-23 11:15 | ER ---
Nurse's Notes [facility] Name: Miguelangel Reaves Jr Age: 64 yrs Sex: Male : 1960 Arrival Date: 08/23/2024 Time: 08:58 Bed 15 Private MD: Diagnosis: Chest pain, unspecified;Tobacco abuse counseling;Tobacco use;Essential (primary) hypertension Presentation: 08/23 09:06 Chief complaint: Patient states: intermittent chest discomfort x >1 week. HX of AL. Has ss not been able to follow up with cardiology as recommended after last heart attack years ago. Pt states, "I'm just dealing with a lot of stress right now.". Coronavirus screen: Client denies travel out of the [place] in the last 14 days. Ebola Screen: Patient denies exposure to infectious person. Patient denies travel to an Ebola-affected area in the 21 days before illness onset. Initial Sepsis Screen: Does the patient meet any 2 criteria? No. Patient's initial sepsis screen is negative. Does the patient have a suspected source of infection? No. Patient's initial sepsis screen is negative. Risk Assessment: Do you want to hurt yourself or someone else? Patient reports no desire to harm self or others. Onset of symptoms was August 18, 2024. 09:06 Method Of Arrival: Ambulatory 09:06 Acuity: NETTA 3 ss Historical: - Allergies: 09:08 PENICILLINS; ss - PMHx: 09:08 Hypercholesterolemia; Hypertensive disorder; Myocardial infarction; ss - PSHx: 09:08 left hand; Right Ankle; laminectomy; ss - Immunization history:: Client reports receiving the 2nd dose of the Covid vaccine. - Infectious Disease History:: Denies. - Social history:: Smoking status: Patient reports the use of cigarette tobacco products, smokes one-half pack cigarettes per day. - Family history:: not pertinent. Screenin:46 [facility] ED Fall Risk Assessment (Adult) History of falling in the last 3 months, db including since admission No falls in past 3 months (0 pts) Confusion or Disorientation No (0 pts) Intoxicated or Sedated No (0 pts) Impaired Gait No (0 pts) Mobility Assist Device Used No (0 pt) Altered Elimination No (0 pt) Score/Fall Risk Level 0 - 2 = Low Risk Oriented to surroundings, Maintained a safe environment. Abuse screen: Denies threats or abuse. Denies injuries from another. Nutritional screening: No deficits noted. Tuberculosis screening: No symptoms or risk factors identified. Assessment: 09:45 Reassessment: Patient appears in no apparent distress at this time. Patient and/or db family updated on plan of care and expected duration. Pain level reassessed. Patient is alert, oriented x 3, equal unlabored respirations, skin warm/dry/pink. General: Appears in no apparent distress. comfortable, Behavior is calm, cooperative. Pain: Complains of pain in chest Pain does not radiate. Pain began 2-3 days ago. Cardiovascular: Reports chest pain. 11:01 Reassessment: Patient appears in no apparent distress at this time. Patient and/or db family updated on plan of care and expected duration. Pain level reassessed. Patient is alert, oriented x 3, equal unlabored respirations, skin warm/dry/pink. 12:09 Reassessment: Patient appears in no apparent distress at this time. Patient and/or db family updated on plan of care and expected duration. Pain level reassessed. Patient is alert, oriented x 3, equal unlabored respirations, skin warm/dry/pink. General: Appears in no apparent distress. comfortable. 12:28 Reassessment: CALLED AND LEFT MESSAGE FOR KITCHEN TO SEND A LATE TRAY. db 12:28 Reassessment: Patient appears in no apparent distress at this time. Patient and/or db family updated on plan of care and expected duration. Pain level reassessed. Patient is alert, oriented x 3, equal unlabored respirations, skin warm/dry/pink. 13:00 Reassessment: Patient appears in no apparent distress at this time. Patient and/or ss family updated on plan of care and expected duration. Pain level reassessed. Patient is alert, oriented x 3, equal unlabored respirations, skin warm/dry/pink. 13:45 Reassessment: PATIENT LEFT AMA. [place] PROVIDER NOTIFIED PATIENT LEFT AMA AND SIGNED ss FORM. STEADY GATE NO COMPLAINTS. Vital Signs: 09:06 BP 155 / 83; Pulse 66; Resp 17; Temp 97.6(O); Pulse Ox 100% ; Weight 83.91 kg; Height 5 ss ft. 10 in. ; Pain 310; 09:33 BP 158 / 103; Pulse 63; Resp 18; Pulse Ox 98% ; db 10:27 BP 161 / 103; Pulse 60; Resp 16; Pulse Ox 97% on R/A; db 10:35 BP 132 / 102; Pulse 61; Resp 18; Pulse Ox 100% on R/A; db 11:30 BP 149 / 100; Pulse 56; Resp 16; Pulse Ox 100% ; db 12:00 BP 114 / 61; Pulse 64; Resp 20; Pulse Ox 100% ; db 13:00 BP 149 / 92; Pulse 54; Resp 14; Pulse Ox 99% ; ss 09:06 Body Mass Index 26.54 (83.91 kg, 177.8 cm) ss 09:06 Pain Scale: Adult ss ED Course: 08:59 Patient arrived in ED. mr 09:07 Beulah Thayer, WILNER is Primary Nurse. db 09:08 Triage completed. ss 09:08 Kayden Roland MD is Attending Physician. annemarie 09:08 Arm band placed on right wrist. ss 09:20 Missed attempt(s): 20 gauge in right antecubital area. Bleeding controlled, band aid db applied, catheter tip intact. 09:34 Initial lab(s) drawn, by ED staff, sent to lab. Inserted saline lock: 22 gauge in left db antecubital area, using aseptic technique. Blood collected. Flushed with 10 mL NS. Patient maintains SpO2 saturation greater than 95% on room air. 10:10 XRAY Chest (1 view) In Process Unspecified. EDMS 11:01 Patient has correct armband on for positive identification. Bed in low position. Call db light in reach. Side rails up X 1. Client placed on continuous cardiac and pulse oximetry monitoring. NIBP monitoring applied. microbiology director on. Pulse ox on. NIBP on. 11:14 Darrick Marie is Hospitalizing Provider. [facility] 12:30 Provided Education on: ADMISSION. 12:30 No provider procedures requiring assistance completed. Patient admitted, IV remains in ss place. Administered Medications: 09:35 Drug: Aspirin PO Chewable Tablet 81 mg PO once Route: PO; db 13:00 Follow up: Response: No adverse reaction 09:35 Drug: NS 0.9% IV 500 ml 500 ml IV at 1 bolus once; to be given as a bolus over 30 db minutes Volume: 500 ml; Route: IV; Rate: 1 bolus; Site: left antecubital; 13:47 Follow up: Response: No adverse reaction; IV Status: Completed infusion; IV Intake: ss 500ml 09:35 Drug: Famotidine IVP 20 mg IVP once; dilute with 10 mL 0.9% NaCl; give over 2 minutes db Route: IVP; Site: left antecubital; 13:00 Follow up: Response: No adverse reaction ss 10:27 Drug: Lisinopril PO 20 mg PO once Route: PO; db 13:00 Follow up: Response: No adverse reaction ss 10:27 Drug: Metoprolol PO 25 mg PO once Route: PO; db 13:00 Follow up: Response: No adverse reaction ss 10:28 Drug: morphine IVP or IV 2 mg IVP once over 4 mins Route: IVP; Infused Over: 4 mins; db Site: left antecubital; 13:00 Follow up: Response: No adverse reaction ss 10:31 Drug: morphine IVP or IV 2 mg IVP once over 4 mins Route: IVP; Infused Over: 4 mins; db Site: left antecubital; 13:00 Follow up: Response: No adverse reaction ss 11:35 Drug: Atorvastatin PO 20 mg PO once Route: PO; db 13:00 Follow up: Response: No adverse reaction ss 11:36 Drug: Enoxaparin Sub-Q 1 mg/kg Sub-Q once Route: Sub-Q; Site: right lower abdomen; db 13:00 Follow up: Response: No adverse reaction ss Medication: 09:45 VIS not applicable for this client. db Intake: 13:47 IV: 500ml; Total: 500ml. ss Outcome: 11:15 Decision to Hospitalize by Provider. annemarie 12:30 Admitted to ER Hold. Please see [facility] for further documentation. ss 12:30 Condition: stable 12:30 Instructed on the need for admit, 13:57 Patient left the ED. ss Signatures: Dispatcher [employer] EDMS Kayden Roland MD MD cha Rivera, Mary, Reg Kimmy Emery RN RN Beulah Cunningham RN RN db Corrections: (The following items were deleted from the chart) 09:08 09:08 PMHx: heart attack; ss ss
[2024-08-23 11:18] LABS: Specific Gravity 1.011 (1.005-1.030); Sqamous Epithelial None Seen /HPF (None Seen); Urine Bacteria None Seen /HPF (<20); Urine Bilirubin NEGATIVE (Negative); Urine Blood Negative (Negative); Urine Clarity Clear (Clear); Urine Color Light-Yellow (Yellow); Urine Culture Reflex Order NOT NEEDED; Urine Glucose NEGATIVE (Negative); Urine Ketones NEGATIVE (Negative); Urine Microscopic Reflex YN ORDER UMIC; Urine Nitrite NEGATIVE (Negative); Urine Protein NEGATIVE (Negative); Urine RBC <5 /HPF (None Seen); Urine Urobilinogen Normal (Normal); Urine WBC <5 /HPF (<5); Urine pH 6.5 (5.0-7.0)
[2024-08-23] MEDS ORDERED: ENOXAPARIN 80 MG/0.8 ML SQ ONE (11:31)
[2024-08-23] MEDS ORDERED: ATORVASTATIN 20 MG TAB ONE (11:32)
--- NOTE | 2024-08-23 11:59 | RAD REPORT ---
EXAMINATION: ONE VIEW CHEST XR CLINICAL INDICATION: Male, 64 years old.,PAIN TECHNIQUE: Frontal chest projection is submitted. Examination is limited by patient positioning and t echnique. COMPARISON: 03/17/2024 FINDINGS: The lungs are well inflated and clear. No pneumothorax or sizable effusion. The heart is normal in s ize. Mediastinal contours are unremarkable. IMPRESSION: No acute intrathoracic abnormalities.
[2024-08-23] MEDS ORDERED: ACETAMINOPHEN 500 MG TAB PO PRN (12:51)
--- NOTE | 2024-08-23 12:51 | P.HP ---
Certification for Inpatient Patient admitted to: Observation With expected LOS: <2 Midnights Patient will require the following post-hospital care: None Practitioner: I am a practitioner with admitting privileges, knowledge of patient current condition, hospital course, and medical plan of care. Services: Services provided to patient in accordance with Admission requirements found in Title 42 Section 412.3 of the Code of Federal Regulations Patient History Date of Service: 08/23/24 Reason for admission: Chest pain rule out History of Present Illness: Mr. Reaves is a 64-year-old gentleman with a past medical history of hypertension, hyperlipidemia, multiple bowel surgeries, and [place]. He presented to the emergency department after intermittent chest pain x 1 week associated with shortness of breath. He smokes 1 pack of cigarettes daily and states he has been under a lot of stress. He is aware that his initial enzymes in the emergency department are negative and is questioning whether he wants to be admitted. Upon interview, he agreed to stay for observation for serial enzymes to make sure that he is safe. Admission orders were placed, a lunch tray was ordered, and patient left the emergency department AMA. Allergies Penicillins Allergy (Verified 09/16/21 07:42) Rash Home Medications: Amlodipine [Norvasc*] 1 tab PO DAILY 09/06/21 Atorvastatin Calcium [Lipitor*] 1 tab PO BEDTIME 09/06/21 Losartan/Hydrochlorothiazide [Losartan-Hctz 100-12.5 mg Tab] 50 mg PO DAILY 09/06/21 Metoprolol Succinate [Toprol Xl] 0.5 tab PO DAILY 09/06/21 Ensure High Protein 237 ml PO BID #60 can 03/29/24 Fluconazole [Diflucan] 200 mg PO DAILY #7 tab 03/29/24 Hydrocodone 10/APAP 325 [[place] 10/325*] 1 tab PO Q6H PRN #30 tab 03/29/24 Metoprolol Tartrate [Lopressor*] 25 mg PO BID 6AM 6PM #60 tab 03/29/24 Nicotine [Nicoderm*] 21 mg TD DAILY #30 patch 03/29/24 Nystatin 5 ml PO Q6H #200 ml 03/29/24 Pantoprazole [Protonix Tab] 40 mg PO Q12H #60 tab 03/29/24 Simethicone [Mylicon*] 80 mg PO Q6H PRN #60 tab 03/29/24 - Past Medical/Surgical History Diabetic: No -: Hypertension -: Coronary disease -: [place] x5 -: asthma -: hyperlipidemia -: PTSD -: Bowel resection -: Colostomy with reversal -: Left Hand SX -: Rt Ankle Sx Psychosocial/ Personal History: Patient is . - Family History Father -: Heart disease Mother -: Heart disease - Social History Alcohol use: No CD- Drugs: No Caffeine use: Yes Review of Systems 10-point ROS is otherwise unremarkable General: Weakness, Malaise Eyes: Unremarkable ENT: Unremarkable Respiratory: Shortness of Breath, SOB with Excertion Cardiovascular: Chest Pain Gastrointestinal: Unremarkable Genitourinary: Unremarkable Integumentary: Unremarkable Neurological: Unremarkable Lymphatics: Unremarkable Physical Examination - Vital Signs Blood Pressure: 114/61 Pulse: 53 Respirations: 18 Pulse Ox (%): 100 - Physical Exam General: Alert, In no apparent distress, Oriented x3 HEENT: Atraumatic, Normocephalic Neck: Supple Respiratory: Clear to auscultation bilaterally, Normal air movement Cardiovascular: Normal pulses, Regular rate/rhythm, Normal S1 S2 Capillary refill: <2 Seconds Gastrointestinal: Normal bowel sounds, Soft and benign Musculoskeletal: No clubbing, No swelling Integumentary: No rashes, No breakdown Neurological: Normal speech, Normal tone, Normal affect Lymphatics: No axilla or inguinal lymphadenopathy External genitalia: Deferred Rectal: Deferred - Studies Laboratory Data (last 24 hrs) 08/23/24 08/23/24 08/23/24 09:38 09:38 09:38 WBC 8.10 Hgb 13.8 Hct 42.6 Plt Count 304 PT 11.2 INR 1.07 Sodium Potassium BUN Creatinine Glucose Magnesium Total Bilirubin AST ALT Alkaline Phosphatase Triglycerides 210 H Cholesterol 202 H HDL Cholesterol 39 L Cholesterol/HDL Ratio 5.18 Lipase 08/23/24 09:38 WBC Hgb Hct Plt Count PT INR Sodium 138 Potassium 4.2 BUN 14 Creatinine 1.08 Glucose 96 Magnesium 2.0 Total Bilirubin 0.2 AST 18 ALT 19 Alkaline Phosphatase 99 Triglycerides Cholesterol HDL Cholesterol Cholesterol/HDL Ratio Lipase 42 Assessment and Plan - Plan Patient left AMA Discharge Plan: Other (Just after orders placed, before I even finished the H&P Mr. Reaves decided to leave AMA from the ED) - Advance Directives Does patient have a Living Will: No Does patient have a Durable POA for Healthcare: No Comments: Patient left AMA from the ED post admission orders being placed - Code Status/Comfort Care Code Status Assessed: Yes (Full)
[2024-08-23 14:11] VITALS: TEMP 97.6
[2024-08-23 14:27] VITALS: O2SAT 99
[2024-08-23] MEDS ORDERED: METOPROLOL TAR 25 MG TAB PO SCH (18:00)
[2024-08-23 19:16] VITALS: BP 114/61
[2024-08-23] MEDS ORDERED: ATORVASTATIN 40 MG TAB PO SCH (21:00)
[2024-08-24] MEDS ORDERED: PANTOPRAZOLE 40MG TABLET PO SCH (07:30)
[2024-08-24] MEDS ORDERED: DOCOSAHEXANOIC AC/EPA 1000 MG PO SCH (09:00)
[2024-08-24] MEDS ORDERED: LOSARTAN POTASSIUM 50 MG TABLET PO SCH (09:00)
[2024-08-24] MEDS ORDERED: ASPIRIN EC 81 MG TAB PO SCH (09:00)
== END 2024-08-23 13:45 | disposition left against medical advice (07) ==
LOC: ER 08:58 → ERHOLD 12:51
PROVIDERS: ADMIT Internal Medicine; ATTEND Internal Medicine
DX: R07.9 Chest pain, unspecified (principal); I10 Essential (primary) hypertension; E78.5 Hyperlipidemia, unspecified; I25.2 Old myocardial infarction; F17.210 Nicotine dependence, cigarettes, uncomplicated; Z88.0 Allergy status to penicillin; Z53.29 Procedure and treatment not carried out because of patient's decision for other reasons; Z71.6 Tobacco abuse counseling
CPT/HCPCS: 96361; 85025; 81001; 80048; 36415; 83735; 85610; 80061; 80076; 84484; 83690; 83880; 71045; 96375; 96372; 96374; 99285; J7040; G0378; 93005